=== PATIENT | female | born 1980 | race Caucasian/White ===

== ENCOUNTER 2022-10-24 07:52 | Outpatient (OUT) | payer BC, SELFPAY ==
[2022-10-24 09:13] LABS: Basophils Percent Auto 0.7 % (0.2-2.0); Eosinophils Absolute Auto 0.2 10^3/uL (0.0-0.7); Eosinophils Percent Auto 3.3 % (0.9-7.0); Hematocrit 42.4 % (36.0-48.0); Hemoglobin 14.4 g/dL (12.0-16.0); Immature Granulocytes Abs Auto 0.02 10^3/uL (0.00-0.03); Immature Granulocytes Pct Auto 0.4 % (0.0-0.5); Lymphocytes Absolute Auto 1.7 10^3/uL (1.2-3.8); Lymphocytes Percent Auto 29.3 % (20.5-60.0); Mean Corpuscular Hemoglobin 32.3 pg (26.7-34.0); Mean Corpuscular Volume 95.1 fL (81.0-99.0); Mean Platelet Volume 9.7 fL (9.5-13.5); Monocytes Absolute Auto 0.5 10^3/uL (0.3-0.8); Monocytes Percent Auto 9.1 % (1.7-12.0); Neutrophils Absolute Auto 3.3 10^3/uL (1.4-6.5); Neutrophils Percent Auto 57.2 % (43.0-75.0); Platelet Count 191 10^3/uL (150-450); Red Blood Count 4.46 10^6/uL (4.20-5.40); Red Cell Distribution Width 11.5 % (11.0-15.0); White Blood Count 5.7 10^3/uL (4.0-11.0)
[2022-10-24 09:18] LABS: INR 0.95; Partial Thromboplastin Time 34.1 sec (22.3-36.2); Prothrombin Time 10.1 sec (9.0-11.6)
[2022-10-24 10:14] LABS: BUN Creatinine Ratio 18.6; Calcium 9.2 mg/dL (8.5-10.1); Chloride 104 mmol/L (98-107); Estimated GFR (African America >60 (>=60); Estimated GFR (Non-African Ame >60 (>=60); Glucose 97 mg/dL (74-106); Sodium 139 mmol/L (136-145)
[2022-10-24 10:49] LABS: Alanine Aminotransferase 19 U/L (14-59); Albumin Globulin Ratio 1.1; Albumin Level 3.9 g/dL (3.4-5.0); Alkaline Phosphatase 67 U/L (46-116); Aspartate Amino Transferase 17 U/L (15-37); Bilirubin Direct 0.1 mg/dL (0.0-0.2); Bilirubin Total 0.3 mg/dL (0.2-1.0); Globulin 3.7 g/dL; Total Protein 7.6 g/dL (6.4-8.2)
== END 2022-10-24 07:53 | disposition home or self-care (01) ==
LOC: PST 07:53
PROVIDERS: PCP Family Medicine; Visit Provider Obstetrics & Gynecology
DX: Z01.812 Encounter for preprocedural laboratory examination (principal); N92.0 Excessive and frequent menstruation with regular cycle; R10.2 Pelvic and perineal pain; N94.6 Dysmenorrhea, unspecified
CPT/HCPCS: 36415; 80048; 80076; 85025; 85610; 85730; 86850; 86900; 86901

== ENCOUNTER 2022-11-07 06:34 | Day surgery (SDC) | payer BC, SELFPAY ==
[2022-10-24 08:29] VITALS: BP 140/87; PULSE 88; RESP 16; TEMP 36.5; O2SAT 97; BMI 32.2
[2022-11-07] VITALS (16 sets, daily range): BP systolic 104–143; BP diastolic 63–94; PULSE 69–107; RESP 10–20; TEMP 36.6–36.8; O2SAT 93–98; BMI 32.2
[2022-11-07 06:44] LABS: Basophils Absolute Auto 0.1 10^3/uL (0.0-0.1); Basophils Percent Auto 0.8 % (0.2-2.0); Eosinophils Absolute Auto 0.2 10^3/uL (0.0-0.7); Eosinophils Percent Auto 3.4 % (0.9-7.0); Hematocrit 41.3 % (36.0-48.0); Hemoglobin 14.3 g/dL (12.0-16.0); Immature Granulocytes Abs Auto 0.02 10^3/uL (0.00-0.03); Immature Granulocytes Pct Auto 0.3 % (0.0-0.5); Lymphocytes Absolute Auto 1.9 10^3/uL (1.2-3.8); Lymphocytes Percent Auto 30.2 % (20.5-60.0); Mean Corpuscular HGB Conc 34.6 g/dL (29.9-35.2); Mean Corpuscular Hemoglobin 32.9 pg (26.7-34.0); Mean Corpuscular Volume 94.9 fL (81.0-99.0); Mean Platelet Volume 9.1 fL (9.5-13.5); Monocytes Absolute Auto 0.5 10^3/uL (0.3-0.8); Monocytes Percent Auto 7.5 % (1.7-12.0); Neutrophils Absolute Auto 3.7 10^3/uL (1.4-6.5); Neutrophils Percent Auto 57.8 % (43.0-75.0); Platelet Count 198 10^3/uL (150-450); Red Blood Count 4.35 10^6/uL (4.20-5.40); Red Cell Distribution Width 11.3 % (11.0-15.0); White Blood Count 6.4 10^3/uL (4.0-11.0)
[2022-11-07 07:04] LABS: HCG Quantitative <1 mIU/mL
[2022-11-07] MEDS: LACTATED RINGER'S SOLUTION 1,000 ML 50 ML IV (07:10)
[2022-11-07] MEDS: CEFAZOLIN SODIUM/DEXTROSE,ISO 2 GM/50 ML PIGGYBACK IV ×3 (07:27→21:03)
[2022-11-07] MEDS: LIDOCAINE HCL 1%-EPINEPHRINE 1:100,000 20 ML MDV INJ (08:06)
[2022-11-07] MEDS: 0.9 % SODIUM CHLORIDE 10 ML 30 ML INJ (08:07)
--- NOTE | 2022-11-07 10:11 | P.ON_ITS ---
Brief Operative Note Date of procedure: 11/07/22 Pre-op diagnosis: menorrhagia, pelvic pain dysmenorrhea Post-op diagnosis: same as pre-op Procedure: NAME OF PROCEDURE: ? vNOTES hysterectomy with cystoscopy. PROCEDURE:? Patient was brought back to the operating room where she was given general anesthesia.? She was placed in the dorsolithotomy position, after being prepped and draped in a sterile fashion.? A Marlow catheter was placed.? A weighted speculum was placed posterior in the vagina.? The cervix was grasped anteriorly and posteriorly with two single tooth tenaculums and placed on traction.? A solution of Marcaine, lidocaine and epinephrine and saline was liberally infiltrated into the cervical vaginal junction.? The knife was then used to circumscribe the cervical vaginal junction and the posterior cul-de-sac was sharply entered without difficulty.? A long weighted duck tail speculum was placed and the peritoneum was tacked to the vaginal epithelium.? We then turned our attention to the uterosacral ligaments which were bilaterally cross clamped, transected and suture ligated and then were held with hemostats.? Attention was then turned to the anterior compartment, where the cervical vaginal junction was similarly divided, and the bladder was then sharply and bluntly dissected off the cervix and the lower uterine segment, and the anterior cul-de-sac was sharply entered.? The vaginal epithelium was tacked to the peritoneum.? Lateral attachments of the uterus were secured with Bj clamps and suture ligated.? The retractors were then removed and were placed by the path inner ring an teriorly followed by posteriorly.? Once the ring was seated, the gel cap was placed and the laparoscopic ports were placed through this cap and the gas was allowed to insufflate the pelvis.? A GynLap was placed posteriorly to facilitate mobilization of the bowel, control bleeding.? This was later retrieved.? The LigaSure device was used to secure the lateral attachments of the uterus on the left side, including the cardinal ligaments and the uterine vasculature.? Once the utero-ovarian ligament was reached, we turned our attention to the right side where the LigaSure device was used to fully detach the uterus from the pelvic side wall.? Please note the ligasure was used to perform bilateral salpingectomy, excellent hemostasis was noted. The ureters were seen visually; before, during and after the pedicles were created.? The ureters were bilaterally in normal locations, peristalsing.? Please note that the right and left ovary were already removed and were not visualized.?? Please note that the LigaSure was used on the patient?s left side to fully detach the uterus from the pelvic side wall.? The uterus was removed from the field.? The GynLap was also removed from the field.? The inner ring and gel port caps were removed and the vaginal retractors were replaced.? Lateral figure of eight sutures were placed bilaterally, where bleeding occurred, behind the ring, and no further sutures were needed.? The colpopexy was then carried out, passing a stitch posteriorly to the vaginal wall, capturing the left uterosacral ligament, going across the peritoneum posteriorly to the right and exiting out the vaginal wall posteriorly.? The vaginal cuff was closed in a single running locked stitch using 0 Monocryl, and the uterosacral ligaments were cut.? Once the vaginal cuff was fully closed, the uterosacral colpopexy stitch was then tied down tightly, elevating the vaginal cuff to the uterosacral ligaments in a satisfactory manner.? The Marlow catheter was removed and the patient was awakened and taken to recovery in excellent condition.? Sponge, lap and instruments counts correct x2.? Surgeon: Pete Pinto [facility] Director: Suellen Ugalde Estimated blood loss (mL): 200 Pathology: other (uterus) Condition: stable Disposition: PACU
[2022-11-07] MEDS: HYDROMORPHONE HCL 0.5 MG/0.5 ML SYRINGE IV (10:26)
--- NOTE | 2022-11-07 10:35 | PC.NURSE ---
Peripad changed for small amount bleeding
--- NOTE | 2022-11-07 10:40 | PC.NURSE ---
Turns to left side with pillow to back; medicated as ordered for pain; heat pack to pack; peripad noted to have scant amount bloody drainage
[2022-11-07] MEDS: LACTATED RINGER'S SOLUTION 1,000 ML 125 ML IV ×2 (10:56→18:53)
--- NOTE | 2022-11-07 11:18 | PC.NURSE ---
Medicated with oral pain medications for low back pain; having lower abdominal cramping, but states back discomfort is worse; scant drainage on peripad
[2022-11-07] MEDS: ONDANSETRON PF 4 MG/2 ML VIAL IV (16:25)
[2022-11-07] MEDS: IBUPROFEN 400 MG TABLET 800 MG PO (18:40)
[2022-11-08] MEDS: LACTATED RINGER'S SOLUTION 1,000 ML 125 ML IV (03:24)
[2022-11-08 05:29] VITALS: BP 125/75; PULSE 106; RESP 18; TEMP 36.8; O2SAT 98
[2022-11-08 05:56] LABS: Basophils Percent Auto 0.3 % (0.2-2.0); Eosinophils Absolute Auto 0.1 10^3/uL (0.0-0.7); Eosinophils Percent Auto 0.5 % (0.9-7.0); Hematocrit 35.7 % (36.0-48.0); Hemoglobin 12.2 g/dL (12.0-16.0); Immature Granulocytes Abs Auto 0.03 10^3/uL (0.00-0.03); Immature Granulocytes Pct Auto 0.3 % (0.0-0.5); Lymphocytes Percent Auto 19.5 % (20.5-60.0); Mean Corpuscular HGB Conc 34.2 g/dL (29.9-35.2); Mean Corpuscular Hemoglobin 32.5 pg (26.7-34.0); Mean Corpuscular Volume 95.2 fL (81.0-99.0); Mean Platelet Volume 9.8 fL (9.5-13.5); Monocytes Absolute Auto 0.8 10^3/uL (0.3-0.8); Monocytes Percent Auto 7.7 % (1.7-12.0); Neutrophils Absolute Auto 7.2 10^3/uL (1.4-6.5); Neutrophils Percent Auto 71.7 % (43.0-75.0); Platelet Count 184 10^3/uL (150-450); Red Blood Count 3.75 10^6/uL (4.20-5.40); Red Cell Distribution Width 11.4 % (11.0-15.0)
--- NOTE | 2022-11-08 08:27 | PM.GYNPN2 ---
SALES PRODUCT MANAGER - PN: Subj Post-Op Interval history: doing well, no complaints, denies bm, positive flatus, denies n.v.d.f.c. denies cp sob ct ambulating and tolerating diet well, pain controlled Subjective: patient has no complaints, patient desires discharge, pain is well controlled and patient is tolerating oral intake Exam Constitutional Vital Signs, click to edit/add: Last Vital Signs Temp 98.2 F 11/08/22 05:29 Pulse 106 H 11/08/22 05:29 Resp 18 11/08/22 05:29 BP 125/75 11/08/22 05:29 Pulse Ox 98 11/08/22 05:29 O2 Del Method Room Air 11/08/22 05:29 Documenting provider has reviewed patient's vital signs: yes Common normals: no apparent distress Respiratory Common normals: normal respiratory effort and clear to auscultation bilaterally Cardio Common normals: regular rate and regular rhythm GI Common normals: Normal to inspection, nondistended, normoactive bowel sounds present Extremity Common normals: no clubbing, cyanosis or edema and no calf tenderness Results Labs Labs: Short CBC 11/08/22 Range/Units 04:45 WBC 10.0 (4.0-11.0) 10^3/uL Hgb 12.2 (12.0-16.0) g/dL Hct 35.7 L (36.0-48.0) % Plt Count 184 (150-450) 10^3/uL SALES PRODUCT MANAGER - A/P Assessment and Plan (1) Post-operative state: Plan s/p vnotes-dc home, fu 1wk, rx on chart, precautions given Postoperative Procedures: Procedures Operation Date: 11/07/22 07:30 Actual Procedure Side Surgeon p VNOTES ASSISTED LAPAROSCOPIC HYSTERECTOMY, CYSTOSCOPY Not Applicable Pete Pinto DO Fall Risk Details Chapman fall scale risk level: Moderate Fall Risk Current medications: Current Medications Al Hydroxide/Mg Hydroxide (Magnesium Hydroxide 2,400 Mg/10 Ml Oral.Susp) 2,400 mg PO ONCE SHANIA Docusate Sodium (Docusate Sodium 100 Mg Capsule) 100 mg PO BID PRN PRN Reason: Constipation Lactated Ringer's (Lactated Ringers) 1,000 mls @ 50 mls/hr IV .Q20H SHANIA Last Infusion: 11/08/22 04:24 Dose: Infused Lactated Ringer's (Lactated Ringers) 1,000 mls @ 125 mls/hr IV .Q8H SHANIA Last Admin: 11/08/22 03:24 Dose: 125 mls/hr Ibuprofen (Ibuprofen 400 Mg Tablet) 800 mg PO Q6H PRN PRN Reason: MODERATE PAIN Last Admin: 11/07/22 18:40 Dose: 800 mg Ketorolac Tromethamine (Ketorolac Tromethamine 30 Mg/Ml Vial) 30 mg IVP Q6H PRN PRN Reason: Pain Ondansetron HCl (Ondansetron Pf 4 Mg/2 Ml Vial) 4 mg IV Q6H PRN PRN Reason: Nausea Last Admin: 11/07/22 16:25 Dose: 4 mg Oxycodone/Acetaminophen (Oxycodone Hcl/Acetaminophen 1 Tab Tablet) 1 tab PO Q6H PRN PRN Reason: Pain Oxycodone/Acetaminophen (Oxycodone Hcl/Acetaminophen 1 Tab Tablet) 2 tab PO Q6H PRN PRN Reason: Pain Last Admin: 11/07/22 16:25 Dose: 2 tab Promethazine HCl (Promethazine Hcl 25 Mg/Ml Vial) 12.5 mg IV ONCE PRN PRN Reason: nausea/vomiting Simethicone (Simethicone 80 Mg Tab.Chew) 80 mg PO PCHS PRN PRN Reason: Abdominal Distention Temazepam (Temazepam 15 Mg Capsule) 30 mg PO QHS PRN PRN Reason: Sleep Time Spent With Patient Time: Total time spent is greater than 50% in coordination of care (as documented) at patient's floor/unit and/or counseling patient: Time with patient: less than 15 minutes
[2022-11-08] MEDS: IBUPROFEN 400 MG TABLET 800 MG PO (08:28)
[2022-11-08] MEDS: DOCUSATE SODIUM 100 MG CAPSULE PO (08:29)
[2022-11-08] MEDS: MAGNESIUM HYDROXIDE 2,400 MG/10 ML ORAL.SUSP 2400 MG PO (08:29)
[2022-11-08] MEDS: SIMETHICONE 80 MG TAB.CHEW PO (08:29)
== END 2022-11-08 14:23 | disposition home or self-care (01) ==
LOC: SURGOUT 07:58 → MS 11:19
PROVIDERS: PCP Family Medicine; Visit Provider Obstetrics & Gynecology
PROC: (CPT 58550; principal; 2022-11-07 07:30)
DX: N92.1 Excessive and frequent menstruation with irregular cycle (principal); R10.2 Pelvic and perineal pain; N94.6 Dysmenorrhea, unspecified; N93.8 Other specified abnormal uterine and vaginal bleeding; N80.9 Endometriosis, unspecified
CPT/HCPCS: 58550; 36415; 84702; 85025; 88307; 94667; J1170; J2704

== ENCOUNTER 2023-01-15 08:16 | Outpatient (OUT) | payer BC, SELFPAY ==
--- NOTE | 2023-01-15 08:17 | VEIN_ITS ---
Patient Name: MICHELLE ZEPEDA MR#: [id number] : 1980 Exam Date: 01/15/2023 Ordering Doctor: DR MARY GALLAGHER M.D. RADIOLOGY REPORT PROCEDURE: [facility] FACILITY EST COMPREHENSIVE [facility]IN CENTER - OFFICE VISIT INITIAL COMPARISON: None. PROGRESS NOTES: [age] year old female who presents with a 5+ year history of dilated bulging veins, swelling, leg heaviness, aching. The patient's right leg symptoms are worse than the left. There has been a progression of symptoms over time. This increases with prolonged leg dependency. The patient describes an improvement with rest and elevation. The patient denies any signs and symptoms to suggest arterial ischemia. The patient describes a family history of varicose veins on paternal side. The patient has drinking and smoking history of : Occasional alcohol consumption; remote history of smoking. Patient has a past medical history significant for varicose veins, superficial thrombophlebitis, migraine headaches. The patient denies a history of deep venous thrombus or pulmonary embolus. See separate history and physical for medication list. Prior treatment for varicose with occlusion of the right great saphenous, right small saphenous, and left great saphenous veins.. Current use of compression stockings. After review of nurse notes, history and physical exam I discussed at length the pathophysiology of venous hypertension and possible treatments, therapies and strategies available. We discussed at length the importance of elevating the lower extremities above the level of the heart, increased physical activity and compression stocking use. Ultrasound venous reflux study performed today was discussed at length with the patient. The report demonstrates abnormally dilated and incompetent left small saphenous and anterior accessory saphenous veins as well as bilateral dilated and incompetent branch saphenous varicosities. Again seen is an abnormally dilated and incompetent right calf stoneworker vein.. PHYSICAL EXAM: The right leg demonstrates no significant varicosities, numerous tiny spider veins, no ulceration, mild edema, no skin discoloration. The left leg demonstrates a few varicosities, numerous tiny spider veins, no ulceration, mild edema, no skin discoloration. Both thighs, legs and feet were symmetrically warm to the touch. Good posterior tibial and dorsalis pedis pulses were present bilaterally. VEIN/VC Facility EST Comprehensive IMPRESSION: 1. Bilateral lower extremity venous insufficiency 2. Bilateral lower extremity varicose veins 3. Mild bilateral lower extremity subcutaneous edema 4. No flow significant arterial disease 5. CEAP: C3, EC, AP, GA PLAN: 1. Continued use of compression stockings 2. Elevated legs and increased physical activity symptomatic relief 3. Endovenous laser ablation of the left anterior accessory saphenous vein. 4. Microfoam chemical ablation of bilateral incompetent and dilated branch saphenous varicosities. 5. Bilateral lower extremity sclerotherapy. Nurse notes, history and physical were reviewed and confirmed, see attached forms. The nurse was present throughout the physical exam and consultation Dictated by: Alvin Waterman M.D. on 01/15/2023 at 09:28 Approved by: Alvin Waterman M.D. on 01/15/2023 at 09:36
--- NOTE | 2023-01-15 08:17 | VEIN_ITS ---
Patient Name: MICHELLE ZEPEDA MR#: [id number] : 1980 Exam Date: 01/15/2023 Ordering Doctor: DR MARY GALLAGHER M.D. RADIOLOGY REPORT PROCEDURE: VC EXT VENOUS REFLUX DARELL LMTD COMPARISON: None. INDICATIONS: I83.813 Painful varicose veins of bilat lower extremities TECHNIQUE: Duplex imaging of the lower extremity to assess the deep and superficial venous system for the presence of deep or superficial venous incompetence and to document the location and severity of disease. The study includes evaluation of the great saphenous vein (GSV), anterior accessory saphenous vein (AASV) and small saphenous vein (SSV). Patient scanned in reverse Trendelenburg and standing. FINDINGS: RIGHT LOWER EXTREMITY: Saphenofemoral Junction Reflux: Yes mm sec GSV: Diam (mm) Reflux/ Time (sec) Proximal Thigh N/A Mid Thigh N/A Distal Thigh N/A Prox Calf N/A Mid Calf N/A Saphenopopliteal Junction Reflux: mm SSV: Proximal Calf N/A Mid Calf N/A AASV: Not present Proximal Thigh Mid Thigh Distal Thigh Thrombi: No acute or chronic thrombus visualized Compressibility: Normal Flow: Normal Preforator: Dist/med calf 5.5mm with 0.5s reflux. Tech Note: GSV and SSV were ablated at [facility] in 2018. Patent varicose vein prox/med calf 4.1mm with 2.6s reflux. Patent varicose vein prox/med calf 4.0mm with 1.0s reflux. Patent varicose vein mid/med thigh 4.1mm with 0.8s reflux. LEFT LOWER EXTREMITY: Saphenofemoral Junction Reflux: Yes 8.7 mm 1.0 sec GSV: Diam (mm) Reflux/Time (sec) Proximal Thigh No Mid Thigh N/A Distal Thigh N/A Prox Calf N/A Mid Calf N/A Saphenopopliteal Junction Relux: 5.5 mm Yes 1.4 SSV: Proximal Calf 5.5 Yes 0.5 Mid Calf 4.0 AASV: Proximal Thigh 5.5 Yes 3.4 Mid Thigh 5.6 Yes 0.7 Distal Thigh Thrombi: No acute or chronic thrombus visualized Compressibility: Normal Flow: Normal Manager Department: No perforators visualized Tech Note: Incompetent AASV and SSV. Patent varicose vein prox/med calf 4.6mm with 3.0s reflux. Patent varicose vein mid/med thigh off of AASV 3.8mm with 2.8s reflux. CONCLUSION: 1. Abnormally dilated and incompetent left small saphenous and anterior accessory saphenous veins. 2. Bilateral dilated and incompetent branch saphenous varicosities. 3. Abnormally dilated and incompetent dial marker vein within distal medial right calf. Dictated by: Alvin Waterman M.D. on 01/15/2023 at 09:06 Approved by: Alvin Waterman M.D. on 01/15/2023 at 09:28
== END 2023-01-15 08:17 | disposition home or self-care (01) ==
LOC: VC 08:17
PROVIDERS: PCP Family Medicine; Visit Provider Radiology Diagnostic Radiology
DX: I83.813 Varicose veins of bilateral lower extremities with pain (principal)
CPT/HCPCS: 93970; G0463

== ENCOUNTER 2023-01-29 07:29 | Outpatient (OUT) | payer BC, SELFPAY ==
--- NOTE | 2023-01-29 | VEIN_ITS ---
[address] [address] Patient Name: MICHELLE ZEPEDA MRN: [id number] date: 1980 Sex: F Assigned Patient Location: Current Patient Location: Accession/Order Number: [id number] Exam Date: 01/29/2023 07:45 Report Date: 01/29/2023 08:47 At the request of: MARY GALLAGHER Procedure: VC Endovenous Ablation 1VeinLT EXAMINATION: VC Endovenous Ablation 1VeinLT HISTORY: Pain due to varicose veins of bilateral legs I83.813 The risks and benefits of the procedure had been previously discussed, and were rediscussed at length. Informed written consent was obtained. Avery Abreu RN and Meghan Blanca RDMS, RVT assisted. Time out procedure was performed. The left lower extremity was prepared and draped in the usual sterile fashion to allow knee flexion in the sterile field. Duplex ultrasound probe was draped in a sterile cover, sterile transmission gel was used. Venous mapping was performed with the areas of dilation and large tributaries marked. The total length was 15 cm from the entry upper mid thigh to 3 cm below the Saphenofemoral junction. The diameter of the left anterior accessory saphenous vein ranged from 5.6 mm. A 30 gauge needle and 1% buffered lidocaine was used to anesthetize the entry site. A 4 mm incision was made with a scalpel and the saphenous vein was entered percutaneously under direct ultrasound guidance with a micropuncture set, a single stick was successful in gaining access. A micro-guide wire was inserted and the needle removed. A micro-set including a dilator was inserted over the microwire and the needle and dilator were removed. A guide wire was inserted through the micro-set and guided through the saphenous vein to the saphenofemoral junction. The dilator was removed and an introducer sheath was inserted over the wire until the end of the sheath entered the saphenofemoral junction. The dilator and wire were removed and the 600 micron fiber was introduced and placed and positioned so that it extended beyond the sheath and was 3 cm distal to the saphenofemoral or saphenopopliteal junction. Final position of the fiber was determined by ultrasound guidance and duplex imaging. Tumescent anesthetic was delivered by ultrasound guidance. 150 cc of fluid was delivered along the entire course of the saphenous vein. The solution consisted of 1000 cc of normal saline with 40 mL of 1% lidocaine and 20 mL of sodium bicarbonate. A final positioning check was made. The energy source was turned on by means of the foot pedal and the fiber and sheath were withdrawn. The total number of Joules delivered was 841. The laser was active for 105 seconds under continuous pulse, average laser use of 8 J. Laser start time 8:20 AM, 01/29/2023. Laser stop time 8:22 AM, 01/21/2023. A duplex ultrasound revealed compressibility and flow at the saphenofemoral junction immediately after the procedure. Hemostasis at the access site was achieved. The skin incision of the saphenous vein was closed with a 4 x 4. A compression stocking was applied. Postop instructions were given. A follow up appointment was recommended and scheduled. The patient tolerated the procedure well. Electronically authenticated by: RIGOBERTO HU Date: 01/29/2023 08:47
[2023-01-29] MEDS: LIDOCAINE HCL 1% 100 MG/10 ML MDV INJ (08:04)
[2023-01-29] MEDS: 0.9 % SODIUM CHLORIDE 500 ML, LIDOCAINE HCL 20 ML, SODIUM BICARBONATE 10 MEQ INJ (08:05)
== END 2023-01-29 07:30 | disposition home or self-care (01) ==
LOC: VC 07:29
PROVIDERS: PCP Radiology Diagnostic Radiology; Visit Provider Radiology Diagnostic Radiology
DX: I83.813 Varicose veins of bilateral lower extremities with pain (principal)
CPT/HCPCS: 36478

== ENCOUNTER 2023-01-31 07:28 | Outpatient (OUT) | payer BC, SELFPAY ==
--- NOTE | 2023-01-31 07:31 | VEIN_ITS ---
Patient Name: MICHELLE ZEPEDA MR#: [id number] : 1980 Exam Date: 01/31/2023 Ordering Doctor: DR MARY GALLAGHER M.D. RADIOLOGY REPORT PROCEDURE: [facility] FACILITY EST LMTD VEIN CENTER - OFFICE VISIT FOLLOW UP COMPARISON: None. PROGRESS NOTES: The patient reports improvement in leg symptoms. There has been interval reduction in varicosities. The patient has followed our recommendations to walk 20-30 minutes once or twice per day since the procedure. Physical exam demonstrates decrease in varicosities of the leg. Persistent branch saphenous varicosities are identified along the left leg. Review of the ultrasound performed the same day demonstrates occlusive thrombus extending throughout the treated vein(s), see separate report, consistent with a successful ablation. No thrombus extending into or beyond the saphenofemoral junction. The patient expressed a desire to proceed with treatment of remaining incompetent varicosities. The patient was informed that treatment was a process and would require 2-3 procedures/sessions. VEIN/ Facility EST LMTD IMPRESSION: 1. Successful ablation of the left anterior accessory saphenous vein(s). 2. Persistent dilated branch saphenous veins and lower extremity symptoms. PLAN: Microfoam chemical ablation of incompetent branch saphenous varicosities. Nurse notes, history and physical were reviewed and confirmed, see attached forms. The nurse was present throughout the physical exam and consultation Dictated by: Alvin Waterman M.D. on 01/31/2023 at 08:15 Approved by: Alvin Waterman M.D. on 01/31/2023 at 08:17
--- NOTE | 2023-01-31 07:31 | VEIN_ITS ---
Patient Name: MICHELLE ZEPEDA MR#: [id number] : 1980 Exam Date: 01/31/2023 Ordering Doctor: DR MARY GALLAGHER M.D. RADIOLOGY REPORT PROCEDURE: VC EXT VENOUS LT LIMITED COMPARISON: None. INDICATIONS: Phlebitis of superficial veins of lt lower extremity I80.02 TECHNIQUE: Lower extremity bruner scale and Duplex Doppler evaluation of the deep venous system from the inguinal ligament through the calf veins. FINDINGS: REGION: Left lower extremity. THROMBI: Negative for DVT. Heat induced thrombus visualized 2.5cm from SFJ. The heat induced thrombus extends from groin to mid thigh. COMPRESSIBILITY: Non-compressible segments corresponding to thrombus FLOW: Areas of no flow corresponding to thrombus OTHER: CONCLUSION: 1. Successful post ablation occlusion of left leg anterior accessory saphenous vein. Dictated by: Alvin Waterman M.D. on 01/31/2023 at 08:14 Approved by: Alvin Waterman M.D. on 01/31/2023 at 08:15
--- OUTSIDE RECORDS SUMMARY | 2023-02-20 00:29 | XMS_ITS | CCD ---
Author Name Unknown Address [address] [place] [id number] Organization [facility] Care Team Providers Care English Instructor Name Role Phone REQUEST, DR TEDDY LISTED Primary Care Unavaila ble JARED ., DR ROLON Admitting Unavailable JARED ., DR ROLON Attending Unavailable JARED ., DR ROLON Admitting Unavailable JARED ., DR ROLON Consulting Unavailable JARED ., DR ROLON Attending Unavailable REQUEST, DR ESPINAL LISTED Primary Care Unavaila ble REQUEST, DR ESPINAL LISTED Primary Care Unavaila ble JARED ., DR ROLON Admitting Unavailable JARED ., DR ROLON Consulting Unavailable JARED ., DR ROLON Attending Unavailable LORRI CARRILLO Consulting Unavailable KARLEE, YIN OROZCO Consulting Unava ilable JARED ., DR ROLON Attending Unavailable JARED ., DR ROLON Admitting Unavailable JARED ., DR ROLON Consulting Unavailable Mary Myles Consulting Unavailable JARED ., DR ROLON Admitting Unavailable JARED ., DR ROLON Consulting Unavailable JARED ., DR ROLON Attending Unavailable REQUEST, DR ESPINAL LISTED Primary Care Unavaila ble REQUEST, DR ESPINAL LISTED Attending Unavaila ble RICK QUIROGA Consulting Unavailable REQUEST, DR ESPINAL LISTED Admitting Unavaila ble REQUEST, NONE LISTED Primary Care Unavaila ble REQUEST, DR ESPINAL LISTED Primary Care Unavaila ble JUNAIDRICK MORA Consulting Unavailable JUNAIDRICK MORA Attending Unavailable JUNAIDRICK MORA Admitting Unavailable Problems Active Problems Problem Classification Problem Date Documented Date Episodic/Chronic Menopausal disorders (5 sources) Unspecified menopausal and perimenopausal disorder; Translations: [UNS MENOPAUSAL PERIMENOPAUSAL D/O] Onset: 09-21-2021 Chronic Menstrual disorders (1 source) Excessive and frequent menstruation with regular cycle; Translations: [EXCESS FREQ MENSTRUATION W/REG CYCL] Onset: 09-28-2022 Chronic Other screening for suspected conditions (not mental disorders or infectious disease) (4 sources) Encounter for screening for malignant neoplasm of cervix; Translations: [ENC SCREENING MALIG NEOPLASM CERV] Onset: 05-24-2022 Episodic Unclassified (1 source) PERSONAL HISTORY OF COVID-19; Translations: [PERSONAL HISTORY OF COVID-19] Onset: 11-29-2021 Unclassified (2 sources) CONTACT W/AND (SUSP) EXPOS COVID-19; Translations: [CONTACT W/AND (SUSP) EXPOS COVID-19] Onset: 10-24-2021 Viral infection (1 source) COVID-19; Translations: [COVID-19] Onset: 10-24-2021 Past or Other Problems Problem Classification Problem Date Documented Da te Episodic/Chronic Abdominal pain (5 sources) Pelvic and perineal pain; Translations: [PELVIC AND PERINEAL PAIN] Onset: 11-13-2021 Episodic Other gastrointestinal disorders (1 source) Peritoneal adhesions (postprocedural) (postinfection); Translations: [PERITONEAL ADHES POSTPROC POSTINF] Onset: 11-29-2021 Episodic Screening and history of mental health and substance abuse codes (1 source) Personal history of nicotine dependence; Translations: [PERSONAL HISTORY OF NICOTINE DEPEND] Onset: 11-29-2021 Episodic Unclassified (1 source) CONTACT W/AND (SUSP) EXPOS COVID-19; Translations: [CONTACT W/AND (SUSP) EXPOS COVID-19] Onset: 10-23-2021 Results Test Name Value Interpretation Reference Range Facil ity PAP ACOG PANEL 2: 30 to 65on 05-31-2022 . . Normal [facility] Comment on above: Result Comment: Perf ormed at: WB Performed By: #### [id number] #### [facility] [address] [address] [address] Adria Amor Age Gdln ACOG Testing 30-65 Normal [facility] Comment on above: Performed By: #### [id number] #### [facility] [address] [address] [address] Adria Amor DIAGNOSIS: Comment Normal [facility] Comment on above: Result Comment: NEGA TIVE FOR INTRAEPITHELIAL LESION OR MALIGNANCY. Performed at: WB Performed By: #### [id number] #### [facility] [address] [place] [address] Dr. Adria Amor HPV Aptima Negative Normal Negative [facility] Comment on above: Result Comment: This nucleic acid amplification test detects fourteen high-risk HPV types (16,18,31,33,35,39,45,51,52,56,58,59,66,68) without differentiation. Performed at: =G Performed By: #### [id number] #### [facility] [address] [address] [address] Adria Amor HPV Genotype Reflex Comment Normal [facility] Comment on above: Result Comment: Crit eria not met, HPV Genotype not performed. Performed at: WB Performed By: #### 4 [id number] #### [facility] [address] [place] [address] Dr. Adria Amor Methodology: Comment Normal [facility] Comment on above: Result Comment: This liquid based ThinPrep(R) pap test was screened with the use of an image guided system. Performed at: WB Performed By: #### 4 [id number] #### [facility] [address] [place] [address] Dr. Adria Amor Note: Comment Normal [facility] Comment on above: Result Comment: The Pap smear is a screening test designed to aid in the detection of premalignant and malignant conditions of the uterine cervix. It is not a diagnostic procedure and should not be used as the sole means of detecting cervical cancer. Both false-positive and false-negative reports do occur. . Performed at: WB Performed By: #### [id number] #### [facility] [address] [place] [address] Dr. Adria Amor Performed by: Comment Normal [facility] Comment on above: Result Comment: William Pineda, Shrimp Trawler (ASCP) Performed at: WB Performed By: #### 4 [id number] #### [facility] [address] [place] [address] Dr. Adria Amor Specimen adequacy: Comment Normal [facility] Comment on above: Result Comment: Sati sfactory for evaluation. Endocervical and/or squamous metaplastic cells (endocervical component) are present. Performed at: WB Performed By: #### 4 [id number] #### [facility] [address] [place] [address] Dr. Adria Amor CBC AUTO DIFFon 11-17-2021 BASO # 0.0 103/ul Normal 0.0-0.1 [facility] Comment on above: Performed By: #### 4 [id number] #### [facility] [address] [place] [address] Dr. Adria Amor Basophils/100 WBC (Bld) 0.6 % Normal 0.2-2.0 [facility] Comment on above: Performed By: #### 4 [id number] #### [facility] [address] [place] [address] Dr. Adria Amor EO # 0.3 103/ul Normal 0.0-0.7 [facility] Comment on above: Performed By: #### 4 [id number] #### [facility] [address] [place] [address] Dr. Adria Amor Eosinophils/100 WBC (Bld) 4.0 % Normal 0.9-7.0 [facility] Comment on above: Performed By: #### 4 [id number] #### [facility] [address] [place] [address] Dr. Adria Amor Erythrocyte distribution wid th (RBC) [Ratio] 12.2 % Normal 11.0-15.0 [facility] Comment on above: Performed By: #### 4 [id number] #### [facility] [address] [place] [address] Dr. Adria Amor Hematocrit (Bld) [Volume fraction] 39.3 % Normal 3 6.0-48.0 [facility] Comment on above: Performed By: #### 4 [id number] #### [facility] [address] [place] [address] Dr. Adria Amor Hemoglobin (Bld) [Mass/Vol] 13.7 g/dL Normal 12.0-16. 0 [facility] Comment on above: Performed By: #### 4 [id number] #### [facility] [address] [place] [address] Dr. Adria Amor IG # 0.01 10e3/ul Normal 0.00-0.03 [facility] Comment on above: Performed By: #### 4 [id number] #### [facility] [address] [place] [address] Dr. Adria Amor IG % 0.2 % Normal 0.0-0.5 [facility] Comment on above: Performed By: #### 4 [id number] #### [facility] [address] [place] [address] Dr. Adria Amor LYMPH # 1.9 103/ul Normal 1.2-3.8 [facility] Comment on above: Performed By: #### 4 [id number] #### [facility] [address] [place] [address] Dr. Adria Amor Lymphocytes/100 WBC (Bld) 28.9 % Normal 20.5-60.0 [facility] Comment on above: Performed By: #### 4 [id number] #### [facility] [address] [place] [address] Dr. Adria Amor MANUAL DIFF REQ NO Normal [facility] Comment on above: Performed By: #### 4 [id number] #### [facility] [address] [place] [address] Dr. Adria Amor MCH (RBC) [Entitic mass] 32.4 pg Normal 26.7-34.0 [facility] Comment on above: Performed By: #### 4 [id number] #### [facility] [address] [place] [address] Dr. Adria Amor MCHC (RBC) [Mass/Vol] 34.9 g/dL Normal 29.9-35.2 [facility] Comment on above: Performed By: #### 4 [id number] #### [facility] [address] [place] [address] Dr. Adria Amor MCV (RBC) [Entitic vol] 92.9 fL Normal 81.0-99.0 [facility] Comment on above: Performed By: #### 4 [id number] #### [facility] [address] [place] [address] Dr. Adria Amor MONO # 0.5 103/ul Normal 0.3-0.8 [facility] Comment on above: Performed By: #### 4 [id number] #### [facility] [address] [place] [address] Dr. Adria Amor Monocytes/100 WBC (Bld) 7.4 % Normal 1.7-12.0 [facility] Comment on above: Performed By: #### 4 [id number] #### [facility] [address] [place] [address] Dr. Adria Amor NEUT # 3.8 103/ul Normal 1.4-6.5 [facility] Comment on above: Performed By: #### 4 [id number] #### [facility] [address] [place] [address] Dr. Adria Amor Neutrophils/100 WBC (Bld) 58.9 % Normal 43.0-75.0 [facility] Comment on above: Performed By: #### 4 [id number] #### [facility] [address] [place] [address] Dr. Adria Amor Platelet mean volume (Bld) [Entitic vol] 9.7 fL Normal 9.5-13.5 [facility] Comment on above: Performed By: #### 4 [id number] #### [facility] [address] [place] [address] Dr. Adria Amor PLT 185 103/ul Normal 150-450 [facility]: Performed By: #### 4 [id number] #### [facility] [address] [place] [address] Dr. Adria Amor RBC 4.23 106/ul Normal 4.20-5.40 [facility] Comment on above: Performed By: #### 4 [id number] #### [facility] [address] [place] [address] Dr. Adria Amor WBC 6.5 103/ul Normal 4.0-11.0 [facility] Comment on above: Performed By: #### 4 [id number] #### [facility] [address] [place] [address] Dr. Adria Amor CYTOLOGYon 11-17-2021 SENT TO REF LAB 11/17/2021 Normal [facility] Comment on above: Performed By: #### C YTO #### [facility] [address] [place] [address] Dr. Adria Amor PREG QUANT HCGon 11-17-2021 HCG QUANT 1 mIU/mL Normal [facility] Comment on above: Performed By: #### 4 [id number] #### [facility] [address] [place] [address] Dr. Adria Amor HCG RANGE SEE BELOW Normal [facility] Comment on above: Result Comment: 5-50 0.2-1 WEEK 50-500 1-2 WEEKS 100-5,000 2-3 WEEKS 500-10,000 3-4 WEEKS 1,000-50,000 4-5 WEEKS 10,000-100,000 5-6 WEEKS 15,000-200,000 6-8 WEEKS 10,000- 100,000 2-3 MONTHS Performed By: #### 4 [id number] #### [facility] [address] [place] [address] Dr. Adria Amor CBC AUTO DIFFon 11-08-2021 BASO # 0.1 103/ul Normal 0.0-0.1 [facility] Comment on above: Performed By: #### C BC #### [facility] [address] [place] [address] Dr. Adria Amor Basophils/100 WBC (Bld) 0.7 % Normal 0.2-2.0 [facility] Comment on above: Performed By: #### C BC #### [facility] [address] [place] [address] Dr. Adria Amor EO # 0.3 103/ul Normal 0.0-0.7 [facility] Comment on above: Performed By: #### C BC #### [facility] [address] [place] [address] Dr. Adria Amor Eosinophils/100 WBC (Bld) 3.4 % Normal 0.9-7.0 [facility] Comment on above: Performed By: #### C BC #### [facility] [address] [place] [address] Dr. Adria Amor Erythrocyte distribution wid th (RBC) [Ratio] 11.9 % Normal 11.0-15.0 [facility] Comment on above: Performed By: #### C BC #### [facility] [address] [place] [address] Dr. Adria Amor Hematocrit (Bld) [Volume fraction] 40.2 % Normal 3 6.0-48.0 [facility] Comment on above: Performed By: #### C BC #### [facility] [address] [place] [address] Dr. Adria Amor Hemoglobin (Bld) [Mass/Vol] 13.7 g/dL Normal 12.0-16. 0 [facility] Comment on above: Performed By: #### C BC #### [facility] [address] [place] [address] Dr. Adria Amor IG # 0.02 10e3/ul Normal 0.00-0.03 [facility] Comment on above: Performed By: #### C BC #### [facility] [address] [place] [address] Dr. Adria Amor IG % 0.2 % Normal 0.0-0.5 [facility] Comment on above: Performed By: #### C BC #### [facility] [address] [place] [address] Dr. Adria Amor LYMPH # 2.9 103/ul Normal 1.2-3.8 [facility] Comment on above: Performed By: #### C BC #### [facility] [address] [place] [address] Dr. Adria Amor Lymphocytes/100 WBC (Bld) 35.1 % Normal 20.5-60.0 [facility] Comment on above: Performed By: #### C BC #### [facility] [address] [place] [address] Dr. Adria Amor MANUAL DIFF REQ NO Normal [facility] Comment on above: Performed By: #### C BC #### [facility] [address] [place] [address] Dr. Adria Amor MCH (RBC) [Entitic mass] 31.8 pg Normal 26.7-34.0 [facility] Comment on above: Performed By: #### C BC #### [facility] [address] [place] [address] Dr. Adria Amor MCHC (RBC) [Mass/Vol] 34.1 g/dL Normal 29.9-35.2 [facility] Comment on above: Performed By: #### C BC #### [facility] [address] [place] [address] Dr. Adria Amor MCV (RBC) [Entitic vol] 93.3 fL Normal 81.0-99.0 [facility] Comment on above: Performed By: #### C BC #### [facility] [address] [place] [address] Dr. Adria Amor MONO # 0.7 103/ul Normal 0.3-0.8 [facility] Comment on above: Performed By: #### C BC #### [facility] [address] [place] [address] Dr. Adria Amor Monocytes/100 WBC (Bld) 8.2 % Normal 1.7-12.0 [facility] Comment on above: Performed By: #### C BC #### [facility] [address] [place] [address] Dr. Adria Amor NEUT # 4.3 103/ul Normal 1.4-6.5 [facility] Comment on above: Performed By: #### C BC #### [facility] [address] [place] [address] Dr. Adria Amor Neutrophils/100 WBC (Bld) 52.4 % Normal 43.0-75.0 [facility] Comment on above: Performed By: #### C BC #### [facility] [address] [place] [address] Dr. Adria Amor Platelet mean volume (Bld) [ Entitic vol] 10.3 fL Normal 9.5-13.5 [facility] pital Comment on above: Performed By: #### C BC #### [facility] [address] [place] [address] Dr. Adria Amor PLT 256 103/ul Normal 150-450 [facility] Comment on above: Performed By: #### C BC #### [facility] [address] [place] [address] Dr. Ardia Amor RBC 4.31 106/ul Normal 4.20-5.40 [facility] Comment on above: Performed By: #### C BC #### [facility] [address] [place] [address] Dr. Adria Amor WBC 8.2 103/ul Normal 4.0-11.0 [facility] Comment on above: Performed By: #### C BC #### [facility] [address] [place] [address] Dr. Adria Amor PREG QUANT HCGon 11-08-2021 HCG QUANT <1 Normal [facility] Comment on above: Performed By: #### P REGQNT #### [facility] [address] [place] [address] Dr. Adria Amor HCG RANGE SEE BELOW Normal [facility] Comment on above: Result Comment: 5-50 0.2-1 WEEK 50-500 1-2 WEEKS 100-5,000 2-3 WEEKS 500-10,000 3-4 WEEKS 1,000-50,000 4-5 WEEKS 10,000-100,000 5-6 WEEKS 15,000-200,000 6-8 WEEKS 10,000- 100,000 2-3 MONTHS Performed By: #### P REGQNT #### [facility] [address] [place] [address] Dr. Adria Amor ASYMPTOMATIC COVID-19 ANTIGE Non 10-23-2021 EUA Statement SEE BELOW Normal [facility] Comment on above: Result Comment: This test has not been FDA cleared or approved, but has been authorized by the FDA under an Emergency Use Authorization (EUA) for use by authorized laboratories certified under CLIA that meet the requirements to perform moderate or high complexity testing. This test has been authorized only for the detection of proteins from SARS-CoV-2, not for any other viruses or pathogens. The emergency use of this test is authorized for the duration of the declaration that circumstances exist justifying the authorization of emergency use of in vitro diagnostic tests for detection and/or diagnosis of Covid-19 under section 564(b)(1) of the Act, 21 U.S.C. 360bbb-3(b)(1), unless the declaration is terminated or authorization is revoked sooner. Performed By: #### C VDAGA #### [facility] [address] [place] [address] Dr. Adria Amor SARS-CoV-2 (COVID-19) RNA CHALO+probe Ql (Unsp spec) Positive Critically abnormal NEGATIVE [facility] Comment on above: Result Comment: SARS -CoV-2 antigen present; does not rule out coinfection with other pathogens. Performed By: #### C VDAGA #### [facility] [address] [place] [address] Dr. Adria Amor Covid-19 PCR (CVDTB)on 10-02 SARS-CoV-2 (COVID-19) RNA CHALO+probe Ql (Unsp spec) Detected Critically abnormal NOT DETECTED [facility] Comment on above: Result Comment: This test is not yet approved or cleared by the [place] FDA. When there are no FDA-approved or cleared tests available, and other criteria are met, FDA can make tests available under an emergency access mechanism called an Emergency Use Authorization (EUA). The EUA for this test is supported by the [place] of Health and Human Service's declaration that circumstances exist to justify the emergency use of in vitro diagnostics for the detection and/or diagnosis of the virus that causes COVID-19. This EUA will remain in effect for the duration of the COVID-19 declaration justifying emergency of IVDs, unless it is terminated or revoked by the FDA (after which the test may no longer be used). Performed By: #### C VDTBH #### [facility] [address] [place] [address] Dr. Adria Amor ESTRADIOLon 09-22-2021 Estradiol 66.3 pg/mL Normal [facility] Comment on above: Result Comment: Adul t Female: Follicular phase 12.5 - 166.0 Ovulation phase 85.8 - 498.0 Luteal phase 43.8 - 211.0 Postmenopausal <6.0 - 54.7 1st trimester 215.0 - >4300.0 Aniya ECLIA methodology Performed By: #### E IVIS #### [facility] [address] [place] [address] Dr. Adria Amor FSHon 09-22-2021 FSH 4.0 mIU/mL Normal [facility] Comment on above: Result Comment: Adul t Female: Follicular phase 3.5 - 12.5 Ovulation phase 4.7 - 21.5 Luteal phase 1.7 - 7.7 Postmenopausal 25.8 - 134.8 Performed By: #### 4 [id number] #### [facility] [address] [place] [address] Dr. Adria Amor LUTEINIZING HORMONE (LH)on 0 09-22-2021 LH 14.1 mIU/mL Normal [facility] Comment on above: Result Comment: Adul t Female: Follicular phase 2.4 - 12.6 Ovulation phase 14.0 - 95.6 Luteal phase 1.0 - 11.4 Postmenopausal 7.7 - 58.5 Performed By: #### L BCL #### [facility] [address] [place] [address] Dr. Adria Amor PROGESTERONEon 09-22-2021 Progesterone 5.0 ng/mL Normal [facility] Comment on above: Result Comment: Foll icular phase 0.1 - 0.9 Luteal phase 1.8 - 23.9 Ovulation phase 0.1 - 12.0 First trimester 11.0 - 44.3 Second trimester 25.4 - 83.3 Third trimester 58.7 - 214.0 Postmenopausal 0.0 - 0.1 Performed By: #### P ROGES #### [facility] [address] [place] [address] Dr. Adria Amor TSHon 09-21-2021 TSH 1.400 uIU/mL Normal 0.358-3.740 [facility] Comment on above: Performed By: #### T #### [facility] [address] [address] [address] Adria Amor US PELVIS AND TRANSVAGon US PELVIS AND TRANSVAG EXAM: Pelvic ultr asound. HISTORY: . Pelvic and perineal pain . COMPARISON: None. TECHNIQUE: Transabdominal and transvaginal scanning was performed. FINDINGS: Scanning of the pelvis demonstrates the uterus to measure 10.4 x 6.3 x 4.7 cm. Omental complex measures 13 mm. Right ovary measures 4.7 x 3 x 2.8 cm. Color-flow is noted. Resistive indexes 0.51. Within the right ovary there is a 2.3 x 1.8 cm avascular hypoechoic lesion. Left ovary measures 3.9 x 3 x 3 cm. Color-flow is noted. Resistive indexes 0.4. Within the left ovary there is a 1.9 x 2.7 x 1.7 cm avascular complicated cyst. Impression: 1. Normal-appearing uterus. 2. 2.7 x 1.7 cm complicated cyst within the left ovary. Findings most likely represent hemorrhagic cyst. An inflammatory mass or neoplasm cannot be excluded 3. Within the right ovary there is a 2.3 x 1.8 cm avascular hypoechoic lesion. This could represent hemorrhagic cyst. An inflammatory mass or neoplasm cannot be excluded. Clinical correlation is suggested. 4. You may consider follow-up in 6-8 weeks. If the lesions in the ovaries are hemorrhagic cyst, these should show decrease in size and/or resolution. Electronically authenticated by: MARY MYLES Date: 2021-09-21 08:26 Normal [facility] Encounters Encounter Date Encounter Type Care Provider Facility Start: 05-24-2022 End: 05-24-[address] GONZALES PINTO . Facility:[facility] Start: 11-17-2021 End: 11-17-[address] ESPINAL LISTED REQUEST Facility:[facility] Start: 11-13-2021 Encounter for preprocedural laboratory examination DR GONZALES PINTO . [facility] Start: 11-08-2021 End: 11-09-[address] GONZALES PINTO . Facility:[facility] Start: 11-08-2021 End: 11-09-2021 Encounter for preprocedural laboratory examination DR GONZALES PINTO . Facility:[facility] Start: 11-02-2021 Encounter for other preprocedural examination DR GONZALES PINTO . [facility] Start: 11-01-2021 End: 11-02-2021 ambulatory NONE LISTED REQUEST Facility:[facility] Start: 11-01-2021 End: 11-02-2021 Encounter for other preprocedural examination NONE LISTED REQUEST Facility:[facility] Start: 10-23-2021 End: 10-23-[address] NONE LISTED REQUEST Facility:[facility] Start: 10-17-2021 End: 10-17-[address] NONE LISTED REQUEST Facility:[facility] Start: 09-21-2021 End: 09-22-[address] GONZALES PINTO . Facility: Payers Date Payer Category Payer Unknown [id number] 2019 Unknown [id number] 1982 Unknown [id number] 2.16.84 [id number] 1982 Unknown [id number] 2.16.84 [id number] 1982 Unknown [id number] 2.16.84 [id number] 1982 Unknown [id number] 2.16.84 [id number] 1982 Unknown [id number] 2.16.84 [id number] 1982 Unknown [id number] 2.16.84 [id number] 1982 Unknown [id number] 2.16.84 [id number] 1959 Unknown [id number] Clinical Note 11-17-2021 Note Date & Type Note Facility 11-17-2021 Note OPERATIVE NOTE OPERATION DATE: 11/17/2021 PROCEDURE: Marva endometrial ablation, D AND C hysteroscopy, diagnostic laparoscopy, bilateral salpingectomy, right oophorectomy, fulguration of endometrial implants, lysis of adhesions. PREOPERATIVE DIAGNOSIS: Pelvis pain, menorrhagia. POSTOPERATIVE DIAGNOSIS: Pelvis pain, menorrhagia. ANESTHESIA: General. SURGEON: Gonzales Pinto D.O. COMPENSATION AND BENEFITS MANAGER: ALBERTA Bryan URINE OUTPUT: Yellow and clear. BLOOD LOSS: 10 mL. FINDINGS: Large endometrioma on the patient's right side with significant adhesions to the pelvic sidewall. Normal appearing uterus and tubes. Partially obliterated cul-de-sac. Inside the uterus, both ostia seen. No gross evidence of polyps, fibroids or malignancy. Normal appearing left ovary. SPECIMEN: Right ovary, bilateral tubes and endometrial curettings. PROCEDURE: The patient was taken back to the OR where she was prepped and draped in the normal sterile fashion after being placed in the dorsal lithotomy position, after being placed under general anesthesia without difficulty. A weighted speculum was placed into the vagina. The anterior lip was grasped with a single tooth tenaculum. The patient was then sounded to approximated 8 cm. The patient's cervix was gently dilated using Hegar dilators. The hysteroscope was passed through the cervix into the uterus where both ostia were seen. No gross evidence of polyps, fibroids or malignancy. The cervical length was noted to be 4 cm. The total cavity length is 4 cm. The Marva ablation apparatus was set to approximately 4 cm in length. This was placed through the cervix and into the uterus. After the seal was tested, at that time the total ablation of 120 seconds was performed with the Marva without difficulty. All instruments were removed from the vagina. Excellent hemostasis noted. Sponge and lap count correct times 2. Patient taken to recovery in stable condition. The patient was taken back to the Operating Room where she was given general anesthesia without difficulty. She was then prepped and draped in the normal sterile fashion after being placed in a dorsal lithotomy position. A wet sponge stick was placed into the patient's vagina. Attention was then turned to the patient's abdomen, where a scalpel was used to make a small infraumbilical incision. The S retractors were then used to dissect the underlying layers until the fascia could be seen. The fascia was then grasped with Uriah clamps and tented up. A knife was then used to make a small incision to the fascia. The muscle was identified, at that time two sutures of #0 Vicryl on a GI needle was then used and placed through the fascia. The peritoneum was then identified and entered bluntly. The 10-4 Dutch was then placed into the patient's abdomen. This was confirmed with direct visualization of the bowel, using the laparoscope. The patient's abdomen was then insufflated using approximately 4 liters of CO2 gas. Survey of the patient's abdomen demonstrated ovaries were normal in appearance as well as both tubes and uterus. A second and third rt and lt lateral ports which were 7-8 and 5 mm in size, was then placed after the skin incision was made under direct visualization The patient's tube on the patient's right side was identified and tented up using a grasper, the LigaSure apparatus was then used to come across the mesosalpinx from the fimbriated end to the insertion site at the uterus, the tube was then amputated and removed in its entirety. This was done on the contralateral side. The tubes were the removed from the patient's abdomen. Excellent hemostasis was noted. The lateral ports were then moved under direct visualization with excellent hemostasis. All instruments were removed from the patient's abdomen. The fascia was closed using the #0 Vicryl on GI needle. The skin was closed using 4-0 Vicryl subcuticularly. All instruments were removed from the patient's vagina as well. The patient was taken out of the dorsal lithotomy position and placed in the supine position and taken to recovery in stable condition. Sponge, lap and needle counts were correct x2. [facility] Summary Purpose Family History No Family History Records Found Advance Directives No Advanced Directives Records Found Additional Source Comments INFORMATION SOURCE (unrecogn ized section and content) DATE CREATED AUTHOR 06/09/2022 [facility] FOR RECORDS PERTAINING TO PATIENTS WHO ARE OR HAVE BEEN ENROLLED IN A CHEMICAL DEPENDENCY/SUBSTANCEABUSE PROGRAM, SOME INFORMATION MAY BE OMITTED. This clinical summary was aggregated from multiple sources. Caution should be exercised in using it in the provision of clinical care. This summary normalizes information from multiple sources, and as a consequence, information in this document may materially change the coding, format and clinical context of patient data. In addition, data may be omitted in some cases. CLINICAL DECISIONS SHOULD BE BASED ON THE PRIMARY CLINICAL RECORDS. [employer] [facility]. provides no warranty or guarantee of the accuracy or completeness of information in this document.
== END 2023-01-31 07:29 | disposition home or self-care (01) ==
LOC: VC 07:28
PROVIDERS: PCP Radiology Diagnostic Radiology; Visit Provider Radiology Diagnostic Radiology
DX: I80.02 Phlebitis and thrombophlebitis of superficial vessels of left lower extremity (principal)
CPT/HCPCS: 93971; G0463

== ENCOUNTER 2023-02-01 07:28 | Outpatient (OUT) | payer BC, SELFPAY ==
--- NOTE | 2023-02-01 07:31 | VEIN_ITS ---
[address] [address] Patient Name: MICHELLE ZEPEDA MRN: [id number] date: 1980 Sex: F Assigned Patient Location: Current Patient Location: Accession/Order Number: [id number] Exam Date: 02/01/2023 07:36 Report Date: 02/01/2023 08:29 At the request of: MARY GALLAGHER Procedure: VC INJ Foam Sclerosant WUS PLASTER LATHER PROCEDURE: VC INJ Foam Sclerosant WUS PLASTER LATHER HISTORY: Pain due to varicose veins of bilateral legs I83.813 Pre-operative Diagnosis: CEAP class C3 venous insufficiency with pain, tenderness, edema and incompetent branch saphenous vein(s), chronic venous insufficiency right leg secondary to venous incompetence Post-operative Diagnosis: CEAP class C3 venous insufficiency with pain, tenderness, edema and incompetent branch saphenous vein(s), chronic venous insufficiency right leg secondary to venous incompetence Procedure Performed: 1. Ultrasound-guided microfoam chemical ablation with Varithenaregistered 2. Intraoperative ultrasound guidance Physician: Alvin Waterman M.D. Anesthesia: None Indications for Procedure: 42 year old female. Symptoms including lower extremity swelling, pain, cramping, dilated bulging veins for many years despite conservative medical therapy including medical compression stockings, exercise and analgesics. Prior procedures include [endovenous laser ablation. Multiple incompetent varicosities of the right leg. Duplex scan showed reflux and enlarged diameters up to 5 mm. The patient underwent informed consent including management options where the complications of infection, bleeding, pain, and skin injury were discussed. Particular attention was spent discussing thrombus extension and deep vein thrombosis as well as the possibility of pulmonary embolus and treatment with oral or injectable blood thinners. Procedure: The patient walked to the procedure room. All applicable staff donned appropriate apparel. A procedure timeout was performed to confirm correct patient, correct extremity, correct procedure, and correct room set-up including presence of all applicable supplies, devices, and drugs. A duplex ultrasound, performed by myself confirmed the location and incompetence of branch saphenous varicosities and their course was marked on the skin together with the dilated tributaries. The extent of treatment of the vein and the associated varicosities was determined through ultrasound mapping. The skin was prepped and then punctured with a butterfly needle and advanced under ultrasound guidance. The Varithenaregistered canister was activated and the canister was primed and purged as required in the instructions for use. Varithenaregistered was drawn into a sterile syringe. Varithenaregistered was slowly administered at 0.5-1.0 cc/second with close observation by ultrasound of its course in the vessels. Total volume utilized was: 15 mL (5 mL into a 4 mm varicosity distal medial lower right leg; 5 mL intravenous 5 mm varicosity proximal medial lower leg; 5 mL into a 5 mm varicosity of the mid anterior lower right leg). Following administration of Varithenaregistered the leg was elevated and the patient was asked to repeatedly dorsiflex the ankle to limit flow of Varithenaregistered into perforating veins. Once appropriate spasm had been confirmed in the treated veins, the vascular catheter was removed from the leg and light pressure was applied over the puncture site for hemostasis. The common femoral and deep superficial veins were then evaluated for flow and compressibility prior to dressing placement. The lower extremity was kept elevated at 45 degrees above the horizontal and cording material was applied over the saphenous segments and tributaries to allow for eccentric compression over the target vessels including the targeted saphenous vein(s). A multilayer dressing was applied consisting of foam pads, coban and thigh-high 20-30 mm Hg compression elastic support hose were placed on the patient. The leg was lowered only after compression had been applied and the patient was immediately ambulatory. The patient ambulated 10 minutes under supervision and was without apparent concerns at time of release. Post-care instructions include advising patient to keep post-treatment bandages in place and dry for 48 hours, avoid extended periods of inactivity, avoid heavy exercise for one week, wear compression stockings on the treated leg continuously for two weeks, to walk daily for 10 minutes over the next month. The patient was instructed to take an anti-inflammatory medicine as needed and to follow up for color duplex scan of the Saphenous veins, the treated branch saphenous varicosities, the adjacent deep veins, and additional treatment within 7 days. PERSONNEL: Avery Abreu RN Electronically authenticated by: ALVNI WATERMAN Date: 02/01/2023 08:29
--- OUTSIDE RECORDS SUMMARY | 2023-02-20 01:11 | XMS_ITS | CCD ---
Author Name Unknown Address [address] [place] [id number] Organization [facility] Care Team Providers Care Nature Photographer Name Role Phone REQUEST, DR TEDDY LISTED [...] to 67on 05-31-2022 . . Normal [facility] Comment on above: Result Comment: Perf ormed at: WB Performed By: #### [id number] #### [facility] [address] [address] [address] Adria Amor Age Gdln ACOG Testing 30-65 Normal [facility] Comment on above: Performed By: #### 4 [id number] #### [facility] [address] [address] [address] Adria Amor DIAGNOSIS: Comment Normal [facility] Comment on above: Result Comment: NEGA TIVE FOR INTRAEPITHELIAL LESION OR MALIGNANCY. Performed at: WB Performed By: #### 4 [id number] #### [facility] [address] [place] [address] Dr. Adria Amor HPV Aptima Negative Normal Negative [facility] Comment on above: Result Comment: This nucleic acid amplification test detects fourteen high-risk HPV types (16,18,31,33,35,39,45,51,52,56,58,59,66,68) without differentiation. Performed at: =G Performed By: #### 4 [id number] #### [facility] [address] [address] [address] Adria Amor HPV Genotype Reflex Comment Normal [facility] Comment on above: Result Comment: Crit eria not met, HPV Genotype not performed. Performed at: WB Performed By: #### 4 [id number] #### [facility] [address] [place] [address] Dr. Adria Amor Methodology: Comment Normal [facility] Comment on above: Result Comment: This liquid based ThinPrep(R) pap test was screened with the use of an image guided system. Performed at: WB Performed By: #### [id number] #### [facility] [address] [place] [address] Dr. Adria Amor Note: Comment Normal [facility] Comment on above: Result Comment: The Pap smear is a screening test designed to aid in the detection of premalignant and malignant conditions of the uterine cervix. It is not a diagnostic procedure and should not be used as the sole means of detecting cervical cancer. Both false-positive and false-negative reports do occur. . Performed at: WB Performed By: #### [id number] #### [facility] [address] [place] [address] Dr. Adria Amor Performed by: Comment Normal [facility] Comment on above: Result Comment: William Pineda, Biomedical Scientist (ASCP) Performed at: WB Performed By: #### 4 [id number] #### [facility] [address] [place] [address] Dr. Adria Amor Specimen adequacy: Comment Normal [facility] Comment on above: Result Comment: Sati sfactory for evaluation. Endocervical and/or squamous metaplastic cells (endocervical component) are present. Performed at: WB Performed By: #### 4 [id number] #### [facility] [address] [place] [address] Dr. Adria Amor CBC AUTO DIFFon 11-17-2021 BASO # 0.0 103/ul Normal 0.0-0.1 [facility] Comment on above: Performed By: #### 4 [id number] #### [facility] [address] [place] [address] Dr. Adria Amor Basophils/100 WBC (Bld) 0.6 % Normal 0.2-2.0 [facility] Comment on above: Performed By: #### 4 [id number] #### [facility] [address] [place] [address] Dr. Adria Amor EO # 0.3 103/ul Normal 0.0-0.7 [facility] Comment on above: Performed By: #### 4 [id number] #### [facility] [address] [place] [address] Dr. Adria Amor Eosinophils/100 WBC (Bld) 4.0 % Normal 0.9-7.0 [facility] Comment on above: Performed By: #### 4 [id number] #### [facility] [address] [place] [address] Dr. Adria Amor Erythrocyte distribution wid th (RBC) [Ratio] 12.2 % Normal 11.0-15.0 [facility] Comment on above: Performed By: #### 4 [id number] #### [facility] [address] [place] [address] Dr. Adria Amor Hematocrit (Bld) [Volume fraction] 39.3 % Normal 3 6.0-48.0 [facility] Comment on above: Performed By: #### 4 [id number] #### [facility] [address] [place] [address] Dr. Adria Amor Hemoglobin (Bld) [Mass/Vol] 13.7 g/dL Normal 12.0-16. 0 [facility] Comment on above: Performed By: #### 4 [id number] #### [facility] [address] [place] [address] Dr. Adria Amor IG # 0.01 10e3/ul Normal 0.00-0.03 [facility] Comment on above: Performed By: #### 4 [id number] #### [facility] [address] [place] [address] Dr. Adria Amor IG % 0.2 % Normal 0.0-0.5 [facility] Comment on above: Performed By: #### 4 [id number] #### [facility] [address] [place] [address] Dr. Adria Amor LYMPH # 1.9 103/ul Normal 1.2-3.8 [facility] Comment on above: Performed By: #### 4 [id number] #### [facility] [address] [place] [address] Dr. Adria Amor Lymphocytes/100 WBC (Bld) 28.9 % Normal 20.5-60.0 [facility] Comment on above: Performed By: #### 4 [id number] #### [facility] [address] [place] [address] Dr. Adria Amor MANUAL DIFF REQ NO Normal [facility] Comment on above: Performed By: #### 4 [id number] #### [facility] [address] [place] [address] Dr. Adria Amor MCH (RBC) [Entitic mass] 32.4 pg Normal 26.7-34.0 [facility] Comment on above: Performed By: #### 4 [id number] #### [facility] [address] [place] [address] Dr. Adria Amor MCHC (RBC) [Mass/Vol] 34.9 g/dL Normal 29.9-35.2 [facility] Comment on above: Performed By: #### 4 [id number] #### [facility] [address] [place] [address] Dr. Adria Amor MCV (RBC) [Entitic vol] 92.9 fL Normal 81.0-99.0 [facility] Comment on above: Performed By: #### 4 [id number] #### [facility] [address] [place] [address] Dr. Adria Amor MONO # 0.5 103/ul Normal 0.3-0.8 [facility] Comment on above: Performed By: #### 4 [id number] #### [facility] [address] [place] [address] Dr. Adria Amor Monocytes/100 WBC (Bld) 7.4 % Normal 1.7-12.0 [facility] Comment on above: Performed By: #### 4 [id number] #### [facility] [address] [place] [address] Dr. Adria Amor NEUT # 3.8 103/ul Normal 1.4-6.5 [facility] Comment on above: Performed By: #### 4 [id number] #### [facility] [address] [place] [address] Dr. Adria Amor Neutrophils/100 WBC (Bld) 58.9 % Normal 43.0-75.0 [facility] Comment on above: Performed By: #### 4 [id number] #### [facility] [address] [place] [address] Dr. Adria Amor Platelet mean volume (Bld) [Entitic vol] 9.7 fL Normal 9.5-13.5 [facility] Comment on above: Performed By: #### 4 [id number] #### [facility] [address] [place] [address] Dr. Adria Amor PLT 185 103/ul Normal 150-450 [facility] Comment on above: Performed By: #### 4 [id number] #### [facility] [address] [place] [address] Dr. Adria Amor RBC 4.23 106/ul Normal 4.20-5.40 [facility] Comment on above: Performed By: #### 4 [id number] #### [facility] [address] [place] [address] Dr. Adria Amor WBC 6.5 103/ul Normal 4.0-11.0 [facility] Comment on above: Performed By: #### 4 [id number] #### [facility] [address] [place] [address] Dr. Adria Amor CYTOLOGYon 11-17-2021 SENT TO REF LAB 11/17/2021 Normal [facility] Comment on above: Performed By: #### C YTO #### [facility] [address] [place] [address] Dr. Adria Amor PREG QUANT HCGon 11-17-2021 HCG QUANT 1 mIU/mL Normal [facility] Comment on above: Performed By: #### 4 [id number] #### [facility] [address] [place] [address] Dr. Adria Amor HCG RANGE SEE BELOW Normal [facility] Comment on above: Result Comment: 5-50 0.2-1 WEEK 50-500 1-2 WEEKS 100-5,000 2-3 WEEKS 500-10,000 3-4 WEEKS 1,000-50,000 4-5 WEEKS 10,000-100,000 5-6 WEEKS 15,000-200,000 6-8 WEEKS 10,000- 100,000 2-3 MONTHS Performed By: #### 4 [id number] #### [facility] [address] [place] [address] Dr. Adria Amor CBC AUTO DIFFon 11-08-2021 BASO # 0.1 103/ul Normal 0.0-0.1 [facility] Comment on above: Performed By: #### C BC #### [facility] [address] [place] [address] Dr. Adria Amor Basophils/100 WBC (Bld) 0.7 % Normal 0.2-2.0 [facility] Comment on above: Performed By: #### C BC #### [facility] [address] [place] [address] Dr. Adria Amor EO # 0.3 103/ul Normal 0.0-0.7 [facility] Comment on above: Performed By: #### C BC #### [facility] [address] [place] [address] Dr. Adria Amor Eosinophils/100 WBC (Bld) 3.4 % Normal 0.9-7.0 [facility] Comment on above: Performed By: #### C BC #### [facility] [address] [place] [address] Dr. Adria Amor Erythrocyte distribution wid th (RBC) [Ratio] 11.9 % Normal 11.0-15.0 [facility] Comment on above: Performed By: #### C BC #### [facility] [address] [place] [address] Dr. Adria Amor Hematocrit (Bld) [Volume fraction] 40.2 % Normal 3 6.0-48.0 [facility] Comment on above: Performed By: #### C BC #### [facility] [address] [place] [address] Dr. Adria Amor Hemoglobin (Bld) [Mass/Vol] 13.7 g/dL Normal 12.0-16. 0 [facility] Comment on above: Performed By: #### C BC #### [facility] [address] [place] [address] Dr. Adria Amor IG # 0.02 10e3/ul Normal 0.00-0.03 [facility] Comment on above: Performed By: #### C BC #### [facility] [address] [place] [address] Dr. Adria Amor IG % 0.2 % Normal 0.0-0.5 [facility] Comment on above: Performed By: #### C BC #### [facility] [address] [place] [address] Dr. Adria Amor LYMPH # 2.9 103/ul Normal 1.2-3.8 [facility] Comment on above: Performed By: #### C BC #### [facility] [address] [place] [address] Dr. Adria Amor Lymphocytes/100 WBC (Bld) 35.1 % Normal 20.5-60.0 [facility] Comment on above: Performed By: #### C BC #### [facility] [address] [place] [address] Dr. Adria Amor MANUAL DIFF REQ NO Normal [facility] Comment on above: Performed By: #### C BC #### [facility] [address] [place] [address] Dr. Adria Amor MCH (RBC) [Entitic mass] 31.8 pg Normal 26.7-34.0 [facility] Comment on above: Performed By: #### C BC #### [facility] [address] [place] [address] Dr. Adria Amor MCHC (RBC) [Mass/Vol] 34.1 g/dL Normal 29.9-35.2 [facility] Comment on above: Performed By: #### C BC #### [facility] [address] [place] [address] Dr. Adria Amor MCV (RBC) [Entitic vol] 93.3 fL Normal 81.0-99.0 [facility] Comment on above: Performed By: #### C BC #### [facility] [address] [place] [address] Dr. Adria Amor MONO # 0.7 103/ul Normal 0.3-0.8 [facility] Comment on above: Performed By: #### C BC #### [facility] [address] [place] [address] Dr. Adria Amor Monocytes/100 WBC (Bld) 8.2 % Normal 1.7-12.0 [facility] Comment on above: Performed By: #### C BC #### [facility] [address] [place] [address] Dr. Adria Amor NEUT # 4.3 103/ul Normal 1.4-6.5 [facility] Comment on above: Performed By: #### C BC #### [facility] [address] [place] [address] Dr. Adria Amor Neutrophils/100 WBC (Bld) 52.4 % Normal 43.0-75.0 [facility] Comment on above: Performed By: #### C BC #### [facility] [address] [place] [address] Dr. Adria Amor Platelet mean volume (Bld) [ Entitic vol] 10.3 fL Normal 9.5-13.5 [facility] Comment on above: Performed By: #### C BC #### [facility] [address] [place] [address] Dr. Adria Amor PLT 256 103/ul Normal 150-450 [facility] Comment on above: Performed By: #### C BC #### [facility] [address] [place] [address] Dr. Adria Amor RBC 4.31 106/ul Normal 4.20-5.40 [facility] Comment on above: Performed By: #### C BC #### [facility] [address] [place] [address] Dr. Adria Amor WBC 8.2 103/ul Normal 4.0-11.0 [facility] Comment on above: Performed By: #### C BC #### [facility] [address] [place] [address] Dr. Adria Amor PREG QUANT HCGon 11-08-2021 HCG QUANT <1 Normal [facility] Comment on above: Performed By: #### P REGQNT #### [facility] [address] [place] [address] Dr. Adria Amor HCG RANGE SEE BELOW Normal [facility] Comment on above: Result Comment: 5-50 0.2-1 WEEK 50-500 1-2 WEEKS 100-5,000 2-3 WEEKS 500-10,000 3-4 WEEKS 1,000-50,000 4-5 WEEKS 10,000-100,000 5-6 WEEKS 15,000-200,000 6-8 WEEKS 10,000- 100,000 2-3 MONTHS Performed By: #### P REGQNT #### [facility] [address] [place] [address] Dr. Adria Amor ASYMPTOMATIC COVID-19 ANTIGE Non 10-23-2021 EUA Statement SEE BELOW Normal [facility] Comment on above: Result Comment: This test [...] sooner. Performed By: #### C VDAGA #### [facility] [address] [place] [address] Dr. Adria Amor SARS-CoV-2 (COVID-19) RNA CHALO+probe Ql (Unsp spec) Positive Critically abnormal NEGATIVE [facility] Comment on above: Result Comment: SARS -CoV-2 antigen present; does not rule out coinfection with other pathogens. Performed By: #### C VDAGA #### [facility] [address] [place] [address] Dr. Adria Amor Covid-19 PCR (CVDTB)on 10-02 SARS-CoV-2 (COVID-19) RNA CHALO+probe Ql (Unsp spec) Detected Critically abnormal NOT DETECTED [facility] Comment on above: Result Comment: This test is not yet approved or cleared by the [place] FDA. When there are no FDA-approved or cleared tests available, and other criteria are met, FDA can make tests available under an emergency access mechanism called an Emergency Use Authorization (EUA). The EUA for this test is supported by the [place] of Health and Human Service's declaration that [...] used). Performed By: #### C VDTBH #### [facility] [address] [place] [address] Dr. Adria Amor ESTRADIOLon 09-22-2021 Estradiol 66.3 pg/mL Normal [facility] Comment on above: Result Comment: Adul t Female: Follicular phase 12.5 - 166.0 Ovulation phase 85.8 - 498.0 Luteal phase 43.8 - 211.0 Postmenopausal <6.0 - 54.7 1st trimester 215.0 - >4300.0 Aniya ECLIA methodology Performed By: #### E IVIS #### [facility] [address] [place] [address] Dr. Adria Amor FSHon 09-22-2021 FSH 4.0 mIU/mL Normal [facility] Comment on above: Result Comment: Adul t Female: Follicular phase 3.5 - 12.5 Ovulation phase 4.7 - 21.5 Luteal phase 1.7 - 7.7 Postmenopausal 25.8 - 134.8 Performed By: #### 4 [id number] #### [facility] [address] [place] [address] Dr. Adria Amor LUTEINIZING HORMONE (LH)on 0 09-22-2021 LH 14.1 mIU/mL Normal [facility] Comment on above: Result Comment: Adul t Female: Follicular phase 2.4 - 12.6 Ovulation phase 14.0 - 95.6 Luteal phase 1.0 - 11.4 Postmenopausal 7.7 - 58.5 Performed By: #### L BCL #### [facility] [address] [place] [address] Dr. Adria Amor PROGESTERONEon 09-22-2021 Progesterone 5.0 ng/mL Normal [facility] Comment on above: Result Comment: Foll icular phase 0.1 - 0.9 Luteal phase 1.8 - 23.9 Ovulation phase 0.1 - 12.0 First trimester 11.0 - 44.3 Second trimester 25.4 - 83.3 Third trimester 58.7 - 214.0 Postmenopausal 0.0 - 0.1 Performed By: #### P ROGES #### [facility] [address] [place] [address] Dr. Adria Amor TSHon 09-21-2021 TSH 1.400 uIU/mL Normal 0.358-3.740 [facility] Comment on above: Performed By: #### T #### [facility] [address] [address] [address] Adria Amor US PELVIS AND TRANSVAGon [...] by: MARY MYLES Date: 2021-09-21 08:26 Normal [facility] Encounters Encounter Date Encounter Type Care Provider Facility Start: 05-24-2022 End: 05-24-[address] GONZALES PINTO . Facility:[facility] Start: 11-17-2021 End: 11-17-[address] ESPINAL LISTED REQUEST Facility:[facility] Start: 11-13-2021 Encounter for preprocedural laboratory examination DR GONZALES PINTO . [facility] Start: 11-08-2021 End: 11-09-[address] GONZALES PINTO . Facility:[facility] Start: 11-08-2021 End: 11-09-2021 Encounter for preprocedural laboratory examination DR GONZALES PINTO . Facility:[facility] Start: 11-02-2021 Encounter for other preprocedural examination DR GONZALES PINTO . [facility] Start: 11-01-2021 End: 11-02-2021 ambulatory NONE LISTED REQUEST Facility:[facility] Start: 11-01-2021 End: 11-02-2021 Encounter for other preprocedural examination NONE LISTED REQUEST Facility:[facility] Start: 10-23-2021 End: 10-23-[address] NONE LISTED REQUEST Facility:[facility] Start: 10-17-2021 End: 10-17-[address] NONE LISTED REQUEST Facility:[facility] Start: 09-21-2021 End: 09-22-[address] GONZALES PINTO . Facility: Payers Date Payer Category Payer Unknown [id number] 2019 Unknown [id number] 1980 Unknown [id number] 2.16.84 [id number] 1982 Unknown [id number] 2.16.84 [id number] 1982 Unknown [id number] 2.16.84 [id number] 1982 Unknown [id number] 2.16.84 [id number] 1982 Unknown [id number] 2.16.84 [id number] 1982 Unknown [id number] 2.16.84 [id number] 1982 Unknown [id number] 2.16.84 [id number] 1959 Unknown [id number] Clinical Note 11-17-2021 Note Date & Type Note Facility 11-17-2021 Note OPERATIVE NOTE OPERATION DATE: 11/17/2021 PROCEDURE: Marva endometrial ablation, D AND C hysteroscopy, diagnostic laparoscopy, bilateral salpingectomy, right oophorectomy, fulguration of endometrial implants, lysis of adhesions. PREOPERATIVE DIAGNOSIS: Pelvis pain, menorrhagia. POSTOPERATIVE DIAGNOSIS: Pelvis pain, menorrhagia. ANESTHESIA: General. SURGEON: Gonzales Pinto D.O. DISPATCHER SHIP PILOT: ALBERTA Byran URINE OUTPUT: Yellow and clear. BLOOD LOSS: [...] and needle counts were correct x2. [facility] Summary Purpose Family History No Family History Records Found Advance Directives No Advanced Directives Records Found Additional Source Comments INFORMATION SOURCE (unrecogn ized section and content) DATE CREATED AUTHOR 06/09/2022 [facility] FOR RECORDS PERTAINING TO PATIENTS WHO ARE [...] BE BASED ON THE PRIMARY CLINICAL RECORDS. [employer] [facility]. provides no warranty or guarantee of the accuracy or completeness of information in this document.
== END 2023-02-01 07:29 | disposition home or self-care (01) ==
LOC: VC 07:28
PROVIDERS: PCP Radiology Diagnostic Radiology; Visit Provider Radiology Diagnostic Radiology
DX: I83.813 Varicose veins of bilateral lower extremities with pain (principal)
CPT/HCPCS: 36466

== ENCOUNTER 2023-02-04 07:33 | Outpatient (OUT) | payer BC, SELFPAY ==
--- NOTE | 2023-02-04 07:36 | VEIN_ITS ---
Patient Name: MICHELLE ZEPEDA MR#: [id number] : 1980 Exam Date: 02/04/2023 Ordering Doctor: DR MARY GALLAGHER M.D. RADIOLOGY REPORT PROCEDURE: [facility] C[facility] - OFFICE VISIT FOLLOW UP COMPARISON: [facility] EXT VENOUS RT LMTD, 02/04/2023. [facility] EST LMTD, 01/31/2023. PROGRESS NOTES: The patient reports improvement in leg symptoms. There has been interval reduction in varicosities. The patient has followed our recommendations to walk 20-30 minutes once or twice per day since the procedure. Physical exam demonstrates decrease in varicosities of the leg. Mild bruising. Review of the ultrasound performed the same day demonstrates occlusive thrombus extending throughout the treated vein(s), see separate report, consistent with a successful ablation. No thrombus extending into or beyond the saphenofemoral junction. Persistent dilated varicose vein within the right thigh. The patient expressed a desire to proceed with treatment of remaining incompetent varicosities. The patient was informed that treatment was a process and would require approximately 2 procedures/sessions. VEIN/ Facility EST LMTD IMPRESSION: 1. Successful ablation of the right leg treated branch saphenous vein(s). 2. Persistent superficial varicose veins and lower extremity symptoms. PLAN: Microfoam chemical ablation of left leg abnormal branch saphenous varicosities. Nurse notes, history and physical were reviewed and confirmed, see attached forms. The nurse was present throughout the physical exam and consultation Dictated by: Alvin Waterman M.D. on 02/04/2023 at 08:25 Approved by: Alvin Waterman M.D. on 02/04/2023 at 08:28
--- NOTE | 2023-02-04 07:36 | VEIN_ITS ---
Patient Name: MICHELLE ZEPEDA MR#: [id number] : 1980 Exam Date: 02/04/2023 Ordering Doctor: DR MARY GALLAGHER M.D. RADIOLOGY REPORT PROCEDURE: VC EXT VENOUS RT LMTD COMPARISON: None. INDICATIONS: I80.01 Phlebitis of superficial veins of rt lower extremity TECHNIQUE: Lower extremity bruner scale and Duplex Doppler evaluation of the deep venous system from the inguinal ligament through the calf veins. FINDINGS: REGION: Right lower extremity. THROMBI: Negative for DVT. Varithena induced thrombus visualized at prox/med calf, dist/med calf, and dist/med ham doctor. COMPRESSIBILITY: Non-compressible segments corresponding to thrombus FLOW: Areas of no flow corresponding to thrombus OTHER: Patent varicose vein dist/med thigh 4.8mm with 0.9s reflux. CONCLUSION: 1. Successful post ablation occlusion of right leg treated branch saphenous varicosities. Dictated by: Alvin Waterman M.D. on 02/04/2023 at 08:21 Approved by: Alvin Waterman M.D. on 02/04/2023 at 08:25
== END 2023-02-04 07:34 | disposition home or self-care (01) ==
LOC: VC 07:33
PROVIDERS: PCP Radiology Diagnostic Radiology; Visit Provider Radiology Diagnostic Radiology
DX: I80.01 Phlebitis and thrombophlebitis of superficial vessels of right lower extremity (principal)
CPT/HCPCS: 93971; G0463

== ENCOUNTER 2023-02-05 09:16 | Outpatient (OUT) | payer BC, SELFPAY ==
--- NOTE | 2023-02-05 09:18 | VEIN_ITS ---
[address] [address] Patient Name: MICHELLE ZEPEDA MRN: [id number] date: 1980 Sex: F Assigned Patient Location: Current Patient Location: Accession/Order Number: [id number] Exam Date: 02/05/2023 09:20 Report Date: 02/05/2023 10:56 At the request of: MARY GALLAGHER Procedure: VC INJ Foam Sclerosant WUS ENVIRONMENTAL PROTECTION ECONOMIST PROCEDURE: VC INJ Foam Sclerosant WUS ENVIRONMENTAL PROTECTION ECONOMIST HISTORY: Pain due to varicose veins of bilateral legs I83.813 Pre-operative Diagnosis: CEAP class C3 venous insufficiency with pain, tenderness, edema and incompetent branch saphenous vein(s), chronic venous insufficiency left leg secondary to venous incompetence Post-operative Diagnosis: CEAP class C3 venous insufficiency with pain, tenderness, edema and incompetent branch saphenous vein(s), chronic venous insufficiency left leg secondary to venous incompetence Procedure Performed: 1. Ultrasound-guided microfoam chemical ablation with Varithenaregistered 2. Intraoperative ultrasound guidance Physician: Alvin Waterman M.D. Anesthesia: None Indications for Procedure: 42 year old female. Symptoms including lower extremity pain, swelling, dilated bulging veins for many years despite conservative medical therapy including medical compression stockings, exercise and analgesics. Prior procedures include [endovenous laser ablation and microfoam chemical ablation. Multiple incompetent varicosities of the left leg. Duplex scan showed reflux and enlarged diameters up to 4 mm. The patient underwent informed consent including management options where the complications of infection, bleeding, pain, and skin injury were discussed. Particular attention was spent discussing thrombus extension and deep vein thrombosis as well as the possibility of pulmonary embolus and treatment with oral or injectable blood thinners. Procedure: The patient walked to the procedure room. All applicable staff donned appropriate apparel. A procedure timeout was performed to confirm correct patient, correct extremity, correct procedure, and correct room set-up including presence of all applicable supplies, devices, and drugs. A duplex ultrasound, performed by myself confirmed the location and incompetence of branch saphenous varicosities and their course was marked on the skin together with the dilated tributaries. The extent of treatment of the vein and the associated varicosities was determined through ultrasound mapping. The skin was prepped and then punctured with a butterfly needle and advanced under ultrasound guidance. The Varithenaregistered canister was activated and the canister was primed and purged as required in the instructions for use. Varithenaregistered was drawn into a sterile syringe. Varithenaregistered was slowly administered at 0.5-1.0 cc/second with close observation by ultrasound of its course in the vessels. Total volume utilized was: 10 mL (5 mL into a 4 mm varicosity of the mid medial lower leg; 3 mL into a 4 mm varicosity distal anterior thigh; 2 mL into a 4 mm varicosity medial anterior thigh). Following administration of Varithenaregistered the leg was elevated and the patient was asked to repeatedly dorsiflex the ankle to limit flow of Varithenaregistered into perforating veins. Once appropriate spasm had been confirmed in the treated veins, the vascular catheter was removed from the leg and light pressure was applied over the puncture site for hemostasis. The common femoral and deep superficial veins were then evaluated for flow and compressibility prior to dressing placement. The lower extremity was kept elevated at 45 degrees above the horizontal and cording material was applied over the saphenous segments and tributaries to allow for eccentric compression over the target vessels including the targeted saphenous vein(s). A multilayer dressing was applied consisting of foam pads, coban and thigh-high 20-30 mm Hg compression elastic support hose were placed on the patient. The leg was lowered only after compression had been applied and the patient was immediately ambulatory. The patient ambulated 10 minutes under supervision and was without apparent concerns at time of release. Post-care instructions include advising patient to keep post-treatment bandages in place and dry for 48 hours, avoid extended periods of inactivity, avoid heavy exercise for one week, wear compression stockings on the treated leg continuously for two weeks, to walk daily for 10 minutes over the next month. The patient was instructed to take an anti-inflammatory medicine as needed and to follow up for color duplex scan of the Saphenous veins, the treated branch saphenous varicosities, the adjacent deep veins, and additional treatment within 7 days. PERSONNEL: Avery Abreu RN Electronically authenticated by: ALVIN WATERMAN Date: 02/05/2023 10:56
== END 2023-02-05 09:17 | disposition home or self-care (01) ==
LOC: VC 09:16
PROVIDERS: PCP Radiology Diagnostic Radiology; Visit Provider Radiology Diagnostic Radiology
DX: I83.813 Varicose veins of bilateral lower extremities with pain (principal)
CPT/HCPCS: 36466

== ENCOUNTER 2023-02-08 07:36 | Outpatient (OUT) | payer BC, SELFPAY ==
--- NOTE | 2023-02-08 07:37 | VEIN_ITS ---
Patient Name: MICHELLE ZEPEDA MR#: [id number] : 1980 Exam Date: 02/08/2023 Ordering Doctor: DR DOUG MERCHANT M.D. RADIOLOGY REPORT PROCEDURE: [facility] EST LMTD VEIN CENTER - OFFICE VISIT FOLLOW UP COMPARISON: [facility] EST LMTD, 02/04/2023. [facility] EST LMTD, 01/31/2023. PROGRESS NOTES: The patient reports no significant problems following micro foam chemical ablation of the left leg. The patient did not require oral analgesics. The patient has worn compression stockings. The patient has followed our recommendations to walk 20-30 minutes once or twice per day since the procedure. Physical exam demonstrates several areas of bruising primarily related to interval placement left anterior accessory saphenous vein. No erythema or warmth to suggest cellulitis or thrombophlebitis. No active ulceration Review of the ultrasound performed the same day demonstrates occlusive thrombus extending throughout the treated left leg varicose veins. The patient expressed a desire to proceed with treatment of incompetent right leg varicose veins. VEIN/[facility] EST LMTD IMPRESSION: 1. Successful ablation of treated incompetent left leg varicose veins 2. Persistent patent incompetent right leg varicose veins. PLAN: Micro foam chemical ablation right leg incompetent varicose veins Nurse notes, history and physical were reviewed and confirmed, see attached forms. The nurse was present throughout the physical exam and consultation Dictated by: Doug Merchant MD on 02/08/2023 at 08:42 Approved by: Doug Merchant MD on 02/08/2023 at 08:43
--- NOTE | 2023-02-08 07:37 | VEIN_ITS ---
Patient Name: MICHELLE ZEPEDA MR#: [id number] : 1980 Exam Date: 02/08/2023 Ordering Doctor: DR DOUG MERCHANT M.D. RADIOLOGY REPORT PROCEDURE: VC EXT VENOUS LT LIMITED COMPARISON: VC EXT VENOUS LT LIMITED, 01/31/2023. INDICATIONS: I80.02 Phlebitis of superficial veins of lt lower extremity TECHNIQUE: Lower extremity bruner scale and Duplex Doppler evaluation of the deep venous system from the inguinal ligament through the calf veins. FINDINGS: REGION: Left lower extremity. THROMBI: Negative for DVT. Varithena induced thrombus visualized at mid/med calf and mid/ant thigh. COMPRESSIBILITY: Non-compressible segments corresponding to thrombus FLOW: Areas of absent flow corresponding to thrombus OTHER: Multiple varicose veins remain. The largest is at distal/med thigh 2.5mm with 1.0s reflux. CONCLUSION: Post ablation occlusion of treated left leg varicose veins Dictated by: Doug Merchant MD on 02/08/2023 at 08:33 Approved by: Doug Merchant MD on 02/08/2023 at 08:39
--- OUTSIDE RECORDS SUMMARY | 2023-02-20 03:40 | XMS_ITS | CCD ---
Author Name Unknown Address [address] [place] [id number] Organization [facility] Care Team Providers Care Territory Manager General Sales Name Role Phone REQUEST, DR TEDDY LISTED Primary Care Unavaila ble JARED ., DR ROLON Admitting Unavailable JARED ., DR ROLON Attending Unavailable JARED ., DR ROLNO Admitting Unavailable JARED ., DR ROLON Consulting [...] to 67on 05-31-2022 . . Normal [facility] [place] [facility] Comment on above: Result Comment: Perf ormed at: WB Performed By: #### [id number] #### [facility] [address] [address] [address] Adria Amor Age Gdln ACOG Testing 30-65 Normal [facility] Comment on above: Performed By: #### 4 [id number] #### [facility] [address] [address] [address] Adria Amor DIAGNOSIS: Comment Normal [facility] Comment on above: Result Comment: NEGA TIVE FOR INTRAEPITHELIAL LESION OR MALIGNANCY. Performed at: WB Performed By: #### [id number] #### [facility] [address] [place] [address] Dr. Adria Amor HPV Aptima Negative Normal Negative [facility] Comment on above: Result Comment: This nucleic acid amplification test detects fourteen high-risk HPV types (16,18,31,33,35,39,45,51,52,56,58,59,66,68) without differentiation. Performed at: =G Performed By: #### 4 [id number] #### [facility] [address] [address] [address] Adria Amor HPV Genotype Reflex Comment Normal [facility] Comment on above: Result Comment: Crit eria not met, HPV Genotype not performed. Performed at: WB Performed By: #### 4 [id number] #### [facility] [address] [place] [address] Dr. Adria Amor Methodology: Comment Normal [facility] Comment on above: Result Comment: This liquid based ThinPrep(R) pap test was screened with the use of an image guided system. Performed at: WB Performed By: #### [id number] #### [facility] [address] [place] [address] Dr. Adria Amor Note: Comment Normal [facility] Comment on above: Result Comment: The Pap smear is a screening test designed to aid in the detection of premalignant and malignant conditions of the uterine cervix. It is not a diagnostic procedure and should not be used as the sole means of detecting cervical cancer. Both false-positive and false-negative reports do occur. . Performed at: WB Performed By: #### 4 [id number] #### [facility] [address] [place] [address] Dr. Adria Amor Performed by: Comment Normal [facility] Comment on above: Result Comment: William Pineda, Cash Surrender Calculator (ASCP) Performed at: WB Performed By: #### 4 [id number] #### [facility] [address] [place] [address] Dr. Adria Amor Specimen adequacy: Comment Normal [facility] Comment on above: Result Comment: Sati sfactory for evaluation. Endocervical and/or squamous metaplastic cells (endocervical component) are present. Performed at: WB Performed By: #### 4 [id number] #### [facility] [address] [place] [address] Dr. Adria Amor CBC AUTO DIFFon 11-17-2021 BASO # 0.0 103/ul Normal 0.0-0.1 [facility] Comment on above: Performed By: #### 4 [id number] #### [facility] [address] [place] [address] Dr. Adria Amor Basophils/100 WBC (Bld) 0.6 % Normal 0.2-2.0 [facility] Comment on above: Performed By: #### 4 [id number] #### [facility] [address] [place] [address] Dr. Adria Amor EO # 0.3 103/ul Normal 0.0-0.7 [facility] Comment on above: Performed By: #### 4 [id number] #### [facility] [address] [place] [address] Dr. Adria Amor Eosinophils/100 WBC (Bld) 4.0 % Normal 0.9-7.0 [facility] Comment on above: Performed By: #### 4 [id number] #### [facility] [address] [place] [address] Dr. Adria Amor Erythrocyte distribution wid th (RBC) [Ratio] 12.2 % Normal 11.0-15.0 [facility] Comment on above: Performed By: #### 4 [id number] #### [facility] [address] [place] [address] Dr. Adria Amor Hematocrit (Bld) [Volume fraction] 39.3 % Normal 3 6.0-48.0 [facility] Comment on above: Performed By: #### 4 [id number] #### [facility] [address] [place] [address] Dr. Adria Amor Hemoglobin (Bld) [Mass/Vol] 13.7 g/dL Normal 12.0-16. 0 [facility] Comment on above: Performed By: #### 4 [id number] #### [facility] [address] [place] [address] Dr. Adria Amor IG # 0.01 10e3/ul Normal 0.00-0.03 [facility] Comment on above: Performed By: #### 4 [id number] #### [facility] [address] [place] [address] Dr. Adria Amor IG % 0.2 % Normal 0.0-0.[address] [facility] Comment on above: Performed By: #### 4 [id number] #### [facility] [address] [place] [address] Dr. Adria Amor LYMPH # 1.9 103/ul Normal 1.2-3.[address] [facility] Comment on above: Performed By: #### 4 [id number] #### [facility] [address] [place] [address] Dr. Adria Amor Lymphocytes/100 WBC (Bld) 28.9 % Normal 20.5-60.0 [facility] Comment on above: Performed By: #### 4 [id number] #### [facility] [address] [place] [address] Dr. Adria Amor MANUAL DIFF REQ NO Normal [facility] Comment on above: Performed By: #### 4 [id number] #### [facility] [address] [place] [address] Dr. Adria Amor MCH (RBC) [Entitic mass] 32.4 pg Normal 26.7-34.0 [facility] Comment on above: Performed By: #### 4 [id number] #### [facility] [address] [place] [address] Dr. Adria Amor MCHC (RBC) [Mass/Vol] 34.9 g/dL Normal 29.9-35.2 [facility] Comment on above: Performed By: #### 4 [id number] #### [facility] [address] [place] [address] Dr. Adria Amor MCV (RBC) [Entitic vol] 92.9 fL Normal 81.0-99.0 [facility] Comment on above: Performed By: #### 4 [id number] #### [facility] [address] [place] [address] Dr. Adria Amor MONO # 0.5 103/ul Normal 0.3-0.8 [facility] Comment on above: Performed By: #### 4 [id number] #### [facility] [address] [place] [address] Dr. Adria Amor Monocytes/100 WBC (Bld) 7.4 % Normal 1.7-12.0 [facility] Comment on above: Performed By: #### 4 [id number] #### [facility] [address] [place] [address] Dr. Adria Amor NEUT # 3.8 103/ul Normal 1.4-6.5 [facility] [place] [facility] Comment on above: Performed By: #### 4 [id number] #### [facility] [address] [place] [address] Dr. Adria Amor Neutrophils/100 WBC (Bld) 58.9 % Normal 43.0-75.0 [facility] Comment on above: Performed By: #### 4 [id number] #### [facility] [address] [place] [address] Dr. Adria Amor Platelet mean volume (Bld) [Entitic vol] 9.7 fL Normal 9.5-13.5 [facility] Comment on above: Performed By: #### 4 [id number] #### [facility] [address] [place] [address] Dr. Adria Amor PLT 185 103/ul Normal 150-[address] [facility] Comment on above: Performed By: #### 4 [id number] #### [facility] [address] [place] [address] Dr. Adria Amor RBC 4.23 106/ul Normal 4.20-5.40 [facility] Comment on above: Performed By: #### 4 [id number] #### [facility] [address] [place] [address] Dr. Adria Amor WBC 6.5 103/ul Normal 4.0-11.0 [facility] Comment on above: Performed By: #### 4 [id number] #### [facility] [address] [place] [address] Dr. Adria Amor CYTOLOGYon 11-17-2021 SENT TO REF LAB 11/17/2021 Normal [facility] Comment on above: Performed By: #### C YTO #### [facility] [address] [place] [address] Dr. Adria Amor PREG QUANT HCGon 11-17-2021 HCG QUANT 1 mIU/mL Normal [facility] Comment on above: Performed By: #### 4 [id number] #### [facility] [address] [place] [address] Dr. Adira Amor HCG RANGE SEE BELOW Normal [facility] Comment on above: Result Comment: 5-50 0.2-1 WEEK 50-500 1-2 WEEKS 100-5,000 2-3 WEEKS 500-10,000 3-4 WEEKS 1,000-50,000 4-5 WEEKS 10,000-100,000 5-6 WEEKS 15,000-200,000 6-8 WEEKS 10,000- 100,000 2-3 MONTHS Performed By: #### 4 [id number] #### [facility] [address] [place] [address] Dr. Adria Amor CBC AUTO DIFFon 11-08-2021 BASO # 0.1 103/ul Normal 0.0-0.1 [facility] Comment on above: Performed By: #### C BC #### [facility] [address] [place] [address] Dr. Adria Amor Basophils/100 WBC (Bld) 0.7 % Normal 0.2-2.0 [facility] Comment on above: Performed By: #### C BC #### [facility] [address] [place] [address] Dr. Adria Amor EO # 0.3 103/ul Normal 0.0-0.7 [facility] Comment on above: Performed By: #### C BC #### [facility] [address] [place] [address] Dr. Adria Amor Eosinophils/100 WBC (Bld) 3.4 % Normal 0.9-7.0 [facility] Comment on above: Performed By: #### C BC #### [facility] [address] [place] [address] Dr. Adria Amor Erythrocyte distribution wid th (RBC) [Ratio] 11.9 % Normal 11.0-15.0 [facility] Comment on above: Performed By: #### C BC #### [facility] [address] [place] [address] Dr. Adria Amor Hematocrit (Bld) [Volume fraction] 40.2 % Normal 3 6.0-48.0 [facility] Comment on above: Performed By: #### C BC #### [facility] [address] [place] [address] Dr. Adria Amor Hemoglobin (Bld) [Mass/Vol] 13.7 g/dL Normal 12.0-16. 0 [facility] Comment on above: Performed By: #### C BC #### [facility] [address] [place] [address] Dr. Adria Amor IG # 0.02 10e3/ul Normal 0.00-0.03 [facility] Comment on above: Performed By: #### C BC #### [facility] [address] [place] [address] Dr. Adria Amor IG % 0.2 % Normal 0.0-0.5 [facility] Comment on above: Performed By: #### C BC #### [facility] [address] [place] [address] Dr. Adria Amor LYMPH # 2.9 103/ul Normal 1.2-3.8 [facility] Comment on above: Performed By: #### C BC #### [facility] [address] [place] [address] Dr. Adria Amor Lymphocytes/100 WBC (Bld) 35.1 % Normal 20.5-60.0 [facility] Comment on above: Performed By: #### C BC #### [facility] [address] [place] [address] Dr. Adria Amor MANUAL DIFF REQ NO Normal [facility] Comment on above: Performed By: #### C BC #### [facility] [address] [place] [address] Dr. Adria Amor MCH (RBC) [Entitic mass] 31.8 pg Normal 26.7-34.0 [facility] Comment on above: Performed By: #### C BC #### [facility] [address] [place] [address] Dr. Adria Amor MCHC (RBC) [Mass/Vol] 34.1 g/dL Normal 29.9-35.2 [facility] Comment on above: Performed By: #### C BC #### [facility] [address] [place] [address] Dr. Adria Amor MCV (RBC) [Entitic vol] 93.3 fL Normal 81.0-99.0 [facility] Comment on above: Performed By: #### C BC #### [facility] [address] [place] [address] Dr. Adria Amor MONO # 0.7 103/ul Normal 0.3-0.8 [facility] Comment on above: Performed By: #### C BC #### [facility] [address] [place] [address] Dr. Adria Amor Monocytes/100 WBC (Bld) 8.2 % Normal 1.7-12.0 [facility] Comment on above: Performed By: #### C BC #### [facility] [address] [place] [address] Dr. Adria Amor NEUT # 4.3 103/ul Normal 1.4-6.5 [facility] Comment on above: Performed By: #### C BC #### [facility] [address] [place] [address] Dr. Adria Amor Neutrophils/100 WBC (Bld) 52.4 % Normal 43.0-75.0 [facility] Comment on above: Performed By: #### C BC #### [facility] [address] [place] [address] Dr. Adria Amor Platelet mean volume (Bld) [ Entitic vol] 10.3 fL Normal 9.5-13.5 [facility] Comment on above: Performed By: #### C BC #### [facility] [address] [place] [address] Dr. Adria Amor PLT 256 103/ul Normal 150-450 [facility] Comment on above: Performed By: #### C BC #### [facility] [address] [place] [address] Dr. Adria Amor RBC 4.31 106/ul Normal 4.20-5.40 [facility] Comment on above: Performed By: #### C BC #### [facility] [address] [place] [address] Dr. Adria Amor WBC 8.2 103/ul Normal 4.0-11.0 [facility] Comment on above: Performed By: #### C BC #### [facility] [address] [place] [address] Dr. Adria Amor PREG QUANT HCGon 11-08-2021 HCG QUANT <1 Normal [facility] Comment on above: Performed By: #### P REGQNT #### [facility] [address] [place] [address] Dr. Adria Amor HCG RANGE SEE BELOW Normal [facility] Comment on above: Result Comment: 5-50 0.2-1 WEEK 50-500 1-2 WEEKS 100-5,000 2-3 WEEKS 500-10,000 3-4 WEEKS 1,000-50,000 4-5 WEEKS 10,000-100,000 5-6 WEEKS 15,000-200,000 6-8 WEEKS 10,000- 100,000 2-3 MONTHS Performed By: #### P REGQNT #### [facility] [address] [place] [address] Dr. Adria Amor ASYMPTOMATIC COVID-19 ANTIGE Non 10-23-2021 EUA Statement SEE BELOW Normal [facility] Comment on above: Result Comment: This [...] sooner. Performed By: #### C VDAGA #### [facility] [address] [place] [address] Dr. Adria Amor SARS-CoV-2 (COVID-19) RNA CHALO+probe Ql (Unsp spec) Positive Critically abnormal NEGATIVE [facility] Comment on above: Result Comment: SARS -CoV-2 antigen present; does not rule out coinfection with other pathogens. Performed By: #### C VDAGA #### [facility] [address] [place] [address] Dr. Adria Amor Covid-19 PCR (CVDTB)on 10-02 SARS-CoV-2 (COVID-19) RNA CHALO+probe Ql (Unsp spec) Detected Critically abnormal NOT DETECTED [facility] Comment on above: Result Comment: This test is not yet approved or cleared by the [place] FDA. When there are no FDA-approved or cleared tests available, and other criteria are met, FDA can make tests available under an emergency access mechanism called an Emergency Use Authorization (EUA). The EUA for this test is supported by the [place] of Health and Human Service's declaration that [...] used). Performed By: #### C VDTBH #### [facility] [address] [place] [address] Dr. Adria Amor ESTRADIOLon 09-22-2021 Estradiol 66.3 pg/mL Normal [facility] Comment on above: Result Comment: Adul t Female: Follicular phase 12.5 - 166.0 Ovulation phase 85.8 - 498.0 Luteal phase 43.8 - 211.0 Postmenopausal <6.0 - 54.7 1st trimester 215.0 - >4300.0 Aniya ECLIA methodology Performed By: #### E IVIS #### [facility] [address] [place] [address] Dr. Adria Amor FSHon 09-22-2021 FSH 4.0 mIU/mL Normal [facility] Comment on above: Result Comment: Adul t Female: Follicular phase 3.5 - 12.5 Ovulation phase 4.7 - 21.5 Luteal phase 1.7 - 7.7 Postmenopausal 25.8 - 134.8 Performed By: #### 4 [id number] #### [facility] [address] [place] [address] Dr. Adria Amor LUTEINIZING HORMONE (LH)on 0 09-22-2021 LH 14.1 mIU/mL Normal [facility] Comment on above: Result Comment: Adul t Female: Follicular phase 2.4 - 12.6 Ovulation phase 14.0 - 95.6 Luteal phase 1.0 - 11.4 Postmenopausal 7.7 - 58.5 Performed By: #### L BCL #### [facility] [address] [place] [address] Dr. Adria Amor PROGESTERONEon 09-22-2021 Progesterone 5.0 ng/mL Normal [facility] Comment on above: Result Comment: Foll icular phase 0.1 - 0.9 Luteal phase 1.8 - 23.9 Ovulation phase 0.1 - 12.0 First trimester 11.0 - 44.3 Second trimester 25.4 - 83.3 Third trimester 58.7 - 214.0 Postmenopausal 0.0 - 0.1 Performed By: #### P ROGES #### [facility] [address] [place] [address] Dr. Adria Amor TSHon 09-21-2021 TSH 1.400 uIU/mL Normal 0.358-3.740 [facility] Comment on above: Performed By: #### T #### [facility] [address] [address] [address] Adria Amor US PELVIS AND TRANSVAGon [...] by: MARY MYLES Date: 2021-09-21 08:26 Normal [facility] Encounters Encounter Date Encounter Type Care Provider Facility Start: 05-24-2022 End: 05-24-[address] GONZALES PINTO . Facility:[facility] Start: 11-17-2021 End: 11-17-[address] ESPINAL LISTED REQUEST Facility:[facility] Start: 11-13-2021 Encounter for preprocedural laboratory examination DR GONZALES PINTO . [facility] Start: 11-08-2021 End: 11-09-[address] GONZALES PINTO . Facility:[facility] Start: 11-08-2021 End: 11-09-2021 Encounter for preprocedural laboratory examination DR GONZALES PINTO . Facility:[facility] Start: 11-02-2021 Encounter for other preprocedural examination DR GONZALES PINTO . [facility] Start: 11-01-2021 End: 11-02-2021 ambulatory NONE LISTED REQUEST Facility:[facility] Start: 11-01-2021 End: 11-02-2021 Encounter for other preprocedural examination NONE LISTED REQUEST Facility:[facility] Start: 10-23-2021 End: 10-23-[address] NONE LISTED REQUEST Facility:[facility] Start: 10-17-2021 End: 10-17-[address] NONE LISTED REQUEST Facility:[facility] Start: 09-21-2021 End: 09-22-[address] GONZALES PINTO . Facility: Payers Date Payer Category Payer Unknown [id number] 2019 Unknown [id number] 1982 Unknown [id number] 2.16.84 [id number] 1982 Unknown [id number] 2.16.84 [id number] 1982 Unknown [id number] 2.16.84 [id number] 1982 Unknown [id number] 2.16.84 [id number] 1982 Unknown [id number] 2.16.84 [id number] 1982 Unknown [id number] 2.16.84 [id number] 1982 Unknown [id number] 2.16.84 [id number] 1959 Unknown [id number] Clinical Note 11-17-2021 Note Date & Type Note Facility 11-17-2021 Note OPERATIVE NOTE OPERATION DATE: 11/17/2021 PROCEDURE: Marva endometrial ablation, D AND C hysteroscopy, diagnostic laparoscopy, bilateral salpingectomy, right oophorectomy, fulguration of endometrial implants, lysis of adhesions. PREOPERATIVE DIAGNOSIS: Pelvis pain, menorrhagia. POSTOPERATIVE DIAGNOSIS: Pelvis pain, menorrhagia. ANESTHESIA: General. SURGEON: Gonzales Pinto D.O. PLASTICS ENGINEER: ALBERTA Bryan URINE OUTPUT: Yellow and clear. [...] and needle counts were correct x2. [facility] Summary Purpose Family History No Family History Records Found Advance Directives No Advanced Directives Records Found Additional Source Comments INFORMATION SOURCE (unrecogn ized section and content) DATE CREATED AUTHOR 06/09/2022 [facility] FOR RECORDS PERTAINING TO PATIENTS WHO [...] BE BASED ON THE PRIMARY CLINICAL RECORDS. [employer] [facility]. provides no warranty or guarantee of the accuracy or completeness of information in this document.
== END 2023-02-08 07:37 | disposition home or self-care (01) ==
LOC: VC 07:37
PROVIDERS: PCP Radiology Diagnostic Radiology; Visit Provider Radiology Diagnostic Radiology
DX: I80.02 Phlebitis and thrombophlebitis of superficial vessels of left lower extremity (principal)
CPT/HCPCS: 93971; G0463

== ENCOUNTER 2023-02-11 07:32 | Outpatient (OUT) | payer BC, SELFPAY ==
--- NOTE | 2023-02-11 | VEIN_ITS ---
[address] [address] Patient Name: MICHELLE ZEPEDA MRN: [id number] date: 1980 Sex: F Assigned Patient Location: Current Patient Location: Accession/Order Number: [id number] Exam Date: 02/11/2023 07:30 Report Date: 02/11/2023 08:37 At the request of: MARY GALLAGHER Procedure: VC INJ Foam Sclerosant WUS NET DEVELOPER SOFTWARE ENGINEER C PROCEDURE: VC INJ Foam Sclerosant WUS NET DEVELOPER SOFTWARE ENGINEER C COMPARISON: None. HISTORY: Pain due to varicose veins of bilateral legs I83.813 Pre-operative Diagnosis: CEAP class C3 venous insufficiency with pain, tenderness, edema and incompetent right leg varicose vein(s), chronic venous insufficiency right leg secondary to venous incompetence Post-operative Diagnosis: CEAP class C3 venous insufficiency with pain, tenderness, edema and incompetent right leg varicose vein(s), chronic venous insufficiency right leg secondary to venous incompetence Procedure Performed: 1. Ultrasound-guided microfoam chemical ablation with Varithenaregistered 2. Intraoperative ultrasound guidance Anesthesia: None Indications for Procedure: 42-year-old female who presents with a long history of lower extremity pain and swelling. The patient failed conservative medical therapy including medical compression stockings, exercise and analgesics. Prior procedures include intravenous laser ablation and micro- . Multiple incompetent varicosities of the right leg. Duplex scan showed reflux and enlarged diameters up to 4 mm. The patient underwent informed consent including management options where the complications of infection, bleeding, pain, and skin injury were discussed. Particular attention was spent discussing thrombus extension and deep vein thrombosis as well as the possibility of pulmonary embolus and treatment with oral or injectable blood thinners. Procedure: The patient walked to the procedure room. All applicable staff donned appropriate apparel. A procedure timeout was performed to confirm correct patient, correct extremity, correct procedure, and correct room set-up including presence of all applicable supplies, devices, and drugs. A duplex ultrasound, performed by myself confirmed the location and incompetence of branch saphenous varicosities and their course was marked on the skin together with the dilated tributaries. The extent of treatment of the vein and the associated varicosities was determined through ultrasound mapping. The skin was prepped and then punctured with a butterfly needle and advanced under ultrasound guidance. The Varithenaregistered canister was activated and the canister was primed and purged as required in the instructions for use. Varithenaregistered was drawn into a sterile syringe. The following injections were made: 5 cc injected into a 4 mm varicose vein distal medial right thigh 5 cc injected into a 4 mm varicose vein anterior proximal right lower leg Varithenaregistered was slowly administered at 0.5-1.0 cc/second with close observation by ultrasound of its course in the vessels. Total volume utilized was: 10cc. Following administration of Varithenaregistered the leg was elevated and the patient was asked to repeatedly dorsiflex the ankle to limit flow of Varithenaregistered into perforating veins. Once appropriate spasm had been confirmed in the treated veins, the vascular catheter was removed from the leg and light pressure was applied over the puncture site for hemostasis. The common femoral and deep superficial veins were then evaluated for flow and compressibility prior to dressing placement. The lower extremity was kept elevated at 45 degrees above the horizontal and cording material was applied over the saphenous segments and tributaries to allow for eccentric compression over the target vessels including the targeted saphenous vein(s). A multilayer dressing was applied consisting of foam pads, coban and thigh-high 20-30 mm Hg compression elastic support hose were placed on the patient. The leg was lowered only after compression had been applied and the patient was immediately ambulatory. The patient ambulated 10 minutes under supervision and was without apparent concerns at time of release. Post-care instructions include advising patient to keep post-treatment bandages in place and dry for 48 hours, avoid extended periods of inactivity, avoid heavy exercise for one week, wear compression stockings on the treated leg continuously for two weeks, to walk daily for 10 minutes over the next month. The patient was instructed to take an anti-inflammatory medicine as needed and to follow up for color duplex scan of the Saphenous veins, the treated branch saphenous varicosities, the adjacent deep veins, and additional treatment within 7 days. PERSONNEL: Avery Abreu RN Electronically authenticated by: MARY GALLAGHER Date: 02/11/2023 08:37
--- OUTSIDE RECORDS SUMMARY | 2023-02-20 05:19 | XMS_ITS | CCD ---
Author Name Unknown Address [address] [place] [id number] Organization [facility] Care Team Providers Care Waist Pleater Name Role Phone REQUEST, DR TEDDY LISTED [...] to 67on 05-31-2022 . . Normal [facility] Comment on above: Result Comment: Perf ormed at: WB Performed By: #### [id number] #### [facility] [address] [address] [address] Adria Amor Age Gdln ACOG Testing 30-65 Normal [facility] Comment on above: Performed By: #### [id number] #### [facility] [address] [address] [address] Adria Amor DIAGNOSIS: Comment Normal [facility] Comment on above: Result Comment: NEGA TIVE FOR INTRAEPITHELIAL LESION OR MALIGNANCY. Performed at: WB Performed By: #### 4 [id number] #### [facility] [address] [place] [address] Dr. Adria Amor HPV Aptima Negative Normal Negative [facility] Comment on above: Result Comment: This nucleic acid amplification test detects fourteen high-risk HPV types (16,18,31,33,35,39,45,51,52,56,58,59,66,68) without differentiation. Performed at: =G Performed By: #### 4 [id number] #### [facility] [address] [address] [address] Adria Amor HPV Genotype Reflex Comment Normal [facility] Comment on above: Result Comment: Crit eria not met, HPV Genotype not performed. Performed at: WB Performed By: #### 4 [id number] #### [facility] [address] [place] [address] Dr. Adria Amor Methodology: Comment Normal [facility] Comment on above: Result Comment: This liquid based ThinPrep(R) pap test was screened with the use of an image guided system. Performed at: WB Performed By: #### [id number] #### [facility] [address] [place] [address] Dr. Adria Amor Note: Comment Normal [facility] Comment on above: Result Comment: The Pap smear is a screening test designed to aid in the detection of premalignant and malignant conditions of the uterine cervix. It is not a diagnostic procedure and should not be used as the sole means of detecting cervical cancer. Both false-positive and false-negative reports do occur. . Performed at: WB Performed By: #### [id number] #### [facility] [address] [place] [address] Dr. Adria Amor Performed by: Comment Normal [facility] Comment on above: Result Comment: William iPneda, Field Tech (ASCP) Performed at: WB Performed By: #### 4 [id number] #### [facility] [address] [place] [address] Dr. Adria Amor Specimen adequacy: Comment Normal [facility] Comment on above: Result Comment: Sati sfactory for evaluation. Endocervical and/or squamous metaplastic cells (endocervical component) are present. Performed at: WB Performed By: #### 4 [id number] #### [facility] [address] [place] [address] Dr. Adria Amor CBC AUTO DIFFon 11-17-2021 BASO # 0.0 103/ul Normal 0.0-0.1 [facility] Comment on above: Performed By: #### 4 [id number] #### [facility] [address] [place] [address] Dr. Adria Amor Basophils/100 WBC (Bld) 0.6 % Normal 0.2-2.0 [facility] Comment on above: Performed By: #### 4 [id number] #### [facility] [address] [place] [address] Dr. Adria Amor EO # 0.3 103/ul Normal 0.0-0.7 [facility] Comment on above: Performed By: #### 4 [id number] #### [facility] [address] [place] [address] Dr. Adria Amor Eosinophils/100 WBC (Bld) 4.0 % Normal 0.9-7.0 [facility] Comment on above: Performed By: #### 4 [id number] #### [facility] [address] [place] [address] Dr. Adria Amor Erythrocyte distribution wid th (RBC) [Ratio] 12.2 % Normal 11.0-15.0 [facility] Comment on above: Performed By: #### 4 [id number] #### [facility] [address] [place] [address] Dr. Adria Amor Hematocrit (Bld) [Volume fraction] 39.3 % Normal 3 6.0-48.0 [facility] Comment on above: Performed By: #### 4 [id number] #### [facility] [address] [place] [address] Dr. Adria Amor Hemoglobin (Bld) [Mass/Vol] 13.7 g/dL Normal 12.0-16. 0 [facility] Comment on above: Performed By: #### 4 [id number] #### [facility] [address] [place] [address] Dr. Adria Amor IG # 0.01 10e3/ul Normal 0.00-0.03 [facility] Comment on above: Performed By: #### 4 [id number] #### [facility] [address] [place] [address] Dr. Adria Amor IG % 0.2 % Normal 0.0-0.5 [facility] Comment on above: Performed By: #### 4 [id number] #### [facility] [address] [place] [address] Dr. Adria Amor LYMPH # 1.9 103/ul Normal 1.2-3.8 [facility] Comment on above: Performed By: #### 4 [id number] #### [facility] [address] [place] [address] Dr. Adria Amor Lymphocytes/100 WBC (Bld) 28.9 % Normal 20.5-60.0 [facility] Comment on above: Performed By: #### 4 [id number] #### [facility] [address] [place] [address] Dr. Adria Amor MANUAL DIFF REQ NO Normal [facility] Comment on above: Performed By: #### 4 [id number] #### [facility] [address] [place] [address] Dr. Adria Amor MCH (RBC) [Entitic mass] 32.4 pg Normal 26.7-34.0 [facility] Comment on above: Performed By: #### 4 [id number] #### [facility] [address] [place] [address] Dr. Adria Amor MCHC (RBC) [Mass/Vol] 34.9 g/dL Normal 29.9-35.2 [facility] Comment on above: Performed By: #### 4 [id number] #### [facility] [address] [place] [address] Dr. Adria Amor MCV (RBC) [Entitic vol] 92.9 fL Normal 81.0-99.0 [facility] Comment on above: Performed By: #### 4 [id number] #### [facility] [address] [place] [address] Dr. Adria Amor MONO # 0.5 103/ul Normal 0.3-0.8 [facility] Comment on above: Performed By: #### 4 [id number] #### [facility] [address] [place] [address] Dr. Adria Amor Monocytes/100 WBC (Bld) 7.4 % Normal 1.7-12.0 [facility] Comment on above: Performed By: #### 4 [id number] #### [facility] [address] [place] [address] Dr. Adria Amor NEUT # 3.8 103/ul Normal 1.4-6.5 [facility] ost[facility] Comment on above: Performed By: #### 4 [id number] #### [facility] [address] [place] [address] Dr. Adria Amor Neutrophils/100 WBC (Bld) 58.9 % Normal 43.0-75.0 [facility] Comment on above: Performed By: #### 4 [id number] #### [facility] [address] [place] [address] Dr. Adria Amor Platelet mean volume (Bld) [Entitic vol] 9.7 fL Normal 9.5-13.5 [facility] Comment on above: Performed By: #### 4 [id number] #### [facility] [address] [place] [address] Dr. Adria Amor PLT 185 103/ul Normal 150-450 [facility] Comment on above: Performed By: #### 4 [id number] #### [facility] [address] [place] [address] Dr. Adria Amor RBC 4.23 106/ul Normal 4.20-5.40 [facility] Comment on above: Performed By: #### 4 [id number] #### [facility] [address] [place] [address] Dr. Adria Amor WBC 6.5 103/ul Normal 4.0-11.0 [facility] Comment on above: Performed By: #### 4 [id number] #### [facility] [address] [place] [address] Dr. Adria Amor CYTOLOGYon 11-17-2021 SENT TO REF LAB 11/17/2021 Normal [facility] Comment on above: Performed By: #### C YTO #### [facility] [address] [place] [address] Dr. Adria Amor PREG QUANT HCGon 11-17-2021 HCG QUANT 1 mIU/mL Normal [facility] Comment on above: Performed By: #### 4 [id number] #### [facility] [address] [place] [address] Dr. Adria Amor HCG RANGE SEE BELOW Normal [facility] Comment on above: Result Comment: 5-50 0.2-1 WEEK 50-500 1-2 WEEKS 100-5,000 2-3 WEEKS 500-10,000 3-4 WEEKS 1,000-50,000 4-5 WEEKS 10,000-100,000 5-6 WEEKS 15,000-200,000 6-8 WEEKS 10,000- 100,000 2-3 MONTHS Performed By: #### 4 [id number] #### [facility] [address] [place] [address] Dr. Adria Amor CBC AUTO DIFFon 11-08-2021 BASO # 0.1 103/ul Normal 0.0-0.1 [facility] Comment on above: Performed By: #### C BC #### [facility] [address] [place] [address] Dr. Adria Amor Basophils/100 WBC (Bld) 0.7 % Normal 0.2-2.0 [facility] Comment on above: Performed By: #### C BC #### [facility] [address] [place] [address] Dr. Adria Amor EO # 0.3 103/ul Normal 0.0-0.7 [facility] Comment on above: Performed By: #### C BC #### [facility] [address] [place] [address] Dr. Adria Amor Eosinophils/100 WBC (Bld) 3.4 % Normal 0.9-7.0 [facility] Comment on above: Performed By: #### C BC #### [facility] [address] [place] [address] Dr. Adria Amor Erythrocyte distribution wid th (RBC) [Ratio] 11.9 % Normal 11.0-15.0 [facility] Comment on above: Performed By: #### C BC #### [facility] [address] [place] [address] Dr. Adria Amor Hematocrit (Bld) [Volume fraction] 40.2 % Normal 3 6.0-48.0 [facility] Comment on above: Performed By: #### C BC #### [facility] [address] [place] [address] Dr. Adria Amor Hemoglobin (Bld) [Mass/Vol] 13.7 g/dL Normal 12.0-16. 0 [facility] Comment on above: Performed By: #### C BC #### [facility] [address] [place] [address] Dr. Adria Amor IG # 0.02 10e3/ul Normal 0.00-0.03 [facility] Comment on above: Performed By: #### C BC #### [facility] [address] [place] [address] Dr. Adria Amor IG % 0.2 % Normal 0.0-0.5 [facility] Comment on above: Performed By: #### C BC #### [facility] [address] [place] [address] Dr. Adria Amor LYMPH # 2.9 103/ul Normal 1.2-3.8 [facility] Comment on above: Performed By: #### C BC #### [facility] [address] [place] [address] Dr. Adria Amor Lymphocytes/100 WBC (Bld) 35.1 % Normal 20.5-60.0 [facility] Comment on above: Performed By: #### C BC #### [facility] [address] [place] [address] Dr. Adria Amor MANUAL DIFF REQ NO Normal [facility] Comment on above: Performed By: #### C BC #### [facility] [address] [place] [address] Dr. Adria Amor MCH (RBC) [Entitic mass] 31.8 pg Normal 26.7-34.0 [facility] Comment on above: Performed By: #### C BC #### [facility] [address] [place] [address] Dr. Adria Amor MCHC (RBC) [Mass/Vol] 34.1 g/dL Normal 29.9-35.2 [facility] Comment on above: Performed By: #### C BC #### [facility] [address] [place] [address] Dr. Adria Amor MCV (RBC) [Entitic vol] 93.3 fL Normal 81.0-99.0 [facility] Comment on above: Performed By: #### C BC #### [facility] [address] [place] [address] Dr. Adria Amor MONO # 0.7 103/ul Normal 0.3-0.8 [facility] Comment on above: Performed By: #### C BC #### [facility] [address] [place] [address] Dr. Adria Amor Monocytes/100 WBC (Bld) 8.2 % Normal 1.7-12.0 [facility] Comment on above: Performed By: #### C BC #### [facility] [address] [place] [address] Dr. Adria Amor NEUT # 4.3 103/ul Normal 1.4-6.5 [facility] Comment on above: Performed By: #### C BC #### [facility] [address] [place] [address] Dr. Adria Amor Neutrophils/100 WBC (Bld) 52.4 % Normal 43.0-75.0 [facility] Comment on above: Performed By: #### C BC #### [facility] [address] [place] [address] Dr. Adria Amor Platelet mean volume (Bld) [ Entitic vol] 10.3 fL Normal 9.5-13.5 [facility] pital Comment on above: Performed By: #### C BC #### [facility] [address] [place] [address] Dr. Adria Amor PLT 256 103/ul Normal 150-450 [facility] Comment on above: Performed By: #### C BC #### [facility] [address] [place] [address] Dr. Adria Amor RBC 4.31 106/ul Normal 4.20-5.40 [facility] Comment on above: Performed By: #### C BC #### [facility] [address] [place] [address] Dr. Adria Amor WBC 8.2 103/ul Normal 4.0-11.0 [facility] Comment on above: Performed By: #### C BC #### [facility] [address] [place] [address] Dr. Adria Amor PREG QUANT HCGon 11-08-2021 HCG QUANT <1 Normal [facility] Comment on above: Performed By: #### P REGQNT #### [facility] [address] [place] [address] Dr. Adria Amor HCG RANGE SEE BELOW Normal [facility] Comment on above: Result Comment: 5-50 0.2-1 WEEK 50-500 1-2 WEEKS 100-5,000 2-3 WEEKS 500-10,000 3-4 WEEKS 1,000-50,000 4-5 WEEKS 10,000-100,000 5-6 WEEKS 15,000-200,000 6-8 WEEKS 10,000- 100,000 2-3 MONTHS Performed By: #### P REGQNT #### [facility] [address] [place] [address] Dr. Adria Amor ASYMPTOMATIC COVID-19 ANTIGE Non 10-23-2021 EUA Statement SEE BELOW Normal [facility] Comment on above: Result Comment: This test [...] sooner. Performed By: #### C VDAGA #### [facility] [address] [place] [address] Dr. Adria Amor SARS-CoV-2 (COVID-19) RNA CHALO+probe Ql (Unsp spec) Positive Critically abnormal NEGATIVE [facility] Comment on above: Result Comment: SARS -CoV-2 antigen present; does not rule out coinfection with other pathogens. Performed By: #### C VDAGA #### [facility] [address] [place] [address] Dr. Adria Amor Covid-19 PCR (CVDTB)on 10-02 SARS-CoV-2 (COVID-19) RNA CHALO+probe Ql (Unsp spec) Detected Critically abnormal NOT DETECTED [facility] Comment on above: Result Comment: This test is not yet approved or cleared by the [place] FDA. When there are no FDA-approved or cleared tests available, and other criteria are met, FDA can make tests available under an emergency access mechanism called an Emergency Use Authorization (EUA). The EUA for this test is supported by the [place] of Health and Human Service's declaration that [...] used). Performed By: #### C VDTBH #### [facility] [address] [place] [address] Dr. Adria Amor ESTRADIOLon 09-22-2021 Estradiol 66.3 pg/mL Normal [facility] Comment on above: Result Comment: Adul t Female: Follicular phase 12.5 - 166.0 Ovulation phase 85.8 - 498.0 Luteal phase 43.8 - 211.0 Postmenopausal <6.0 - 54.7 1st trimester 215.0 - >4300.0 Aniya ECLIA methodology Performed By: #### E IVIS #### [facility] [address] [place] [address] Dr. Adria Amor FSHon 09-22-2021 FSH 4.0 mIU/mL Normal [facility] Comment on above: Result Comment: Adul t Female: Follicular phase 3.5 - 12.5 Ovulation phase 4.7 - 21.5 Luteal phase 1.7 - 7.7 Postmenopausal 25.8 - 134.8 Performed By: #### 4 [id number] #### [facility] [address] [place] [address] Dr. Adria Amor LUTEINIZING HORMONE (LH)on 0 09-22-2021 LH 14.1 mIU/mL Normal [facility] Comment on above: Result Comment: Adul t Female: Follicular phase 2.4 - 12.6 Ovulation phase 14.0 - 95.6 Luteal phase 1.0 - 11.4 Postmenopausal 7.7 - 58.5 Performed By: #### L BCL #### [facility] [address] [place] [address] Dr. Adria Amor PROGESTERONEon 09-22-2021 Progesterone 5.0 ng/mL Normal [facility] Comment on above: Result Comment: Foll icular phase 0.1 - 0.9 Luteal phase 1.8 - 23.9 Ovulation phase 0.1 - 12.0 First trimester 11.0 - 44.3 Second trimester 25.4 - 83.3 Third trimester 58.7 - 214.0 Postmenopausal 0.0 - 0.1 Performed By: #### P ROGES #### [facility] [address] [place] [address] Dr. Adria Amor TSHon 09-21-2021 TSH 1.400 uIU/mL Normal 0.358-3.740 [facility] Comment on above: Performed By: #### T #### [facility] [address] [address] [address] Adria Amor US PELVIS AND TRANSVAGon [...] by: MARY MYLES Date: 2021-09-21 08:26 Normal [facility] Encounters Encounter Date Encounter Type Care Provider Facility Start: 05-24-2022 End: 05-24-[address] GONZALES PINTO . Facility:[facility] Start: 11-17-2021 End: 11-17-[address] ESPINAL LISTED REQUEST Facility:[facility] Start: 11-13-2021 Encounter for preprocedural laboratory examination DR GONZALES PINTO . [facility] Start: 11-08-2021 End: 11-09-[address] GONZALES PINTO . Facility:[facility] Start: 11-08-2021 End: 11-09-2021 Encounter for preprocedural laboratory examination DR GONZALES PINTO . Facility:[facility] Start: 11-02-2021 Encounter for other preprocedural examination DR GONZALES PINTO . [facility] Start: 11-01-2021 End: 11-02-2021 ambulatory NONE LISTED REQUEST Facility:[facility] Start: 11-01-2021 End: 11-02-2021 Encounter for other preprocedural examination NONE LISTED REQUEST Facility:[facility] Start: 10-23-2021 End: 10-23-[address] NONE LISTED REQUEST Facility:[facility] Start: 10-17-2021 End: 10-17-[address] NONE LISTED REQUEST Facility:[facility] Start: 09-21-2021 End: 09-22-[address] GONZALES PINTO . Facility: Payers Date Payer Category Payer Unknown [id number] 2019 Unknown [id number] 1980 Unknown [id number] 2.16.84 [id number] 1980 Unknown [id number] 2.16.84 [id number] 1982 Unknown [id number] 2.16.84 [id number] 1982 Unknown [id number] 2.16.84 [id number] 1982 Unknown [id number] 2.16.84 [id number] 1982 Unknown [id number] 2.16.84 [id number] 1982 Unknown [id number] 2.16.84 [id number] 1959 Unknown [id number] Clinical Note 11-17-2021 Note Date & Type Note Facility 11-17-2021 Note OPERATIVE NOTE OPERATION DATE: 11/17/2021 PROCEDURE: Marva endometrial ablation, D AND C hysteroscopy, diagnostic laparoscopy, bilateral salpingectomy, right oophorectomy, fulguration of endometrial implants, lysis of adhesions. PREOPERATIVE DIAGNOSIS: Pelvis pain, menorrhagia. POSTOPERATIVE DIAGNOSIS: Pelvis pain, menorrhagia. ANESTHESIA: General. SURGEON: Gonzales Pinto D.O. SUMO WRESTLER: ALBERTA Bryan URINE OUTPUT: Yellow and clear. [...] and needle counts were correct x2. [facility] Summary Purpose Family History No Family History Records Found Advance Directives No Advanced Directives Records Found Additional Source Comments INFORMATION SOURCE (unrecogn ized section and content) DATE CREATED AUTHOR 06/09/2022 [facility] FOR RECORDS PERTAINING TO PATIENTS WHO [...] BE BASED ON THE PRIMARY CLINICAL RECORDS. [facility]. provides no warranty or guarantee of the accuracy or completeness of information in this document.
== END 2023-02-11 07:33 | disposition home or self-care (01) ==
LOC: VC 07:32
PROVIDERS: PCP Radiology Diagnostic Radiology; Visit Provider Radiology Diagnostic Radiology
DX: I83.813 Varicose veins of bilateral lower extremities with pain (principal)
CPT/HCPCS: 36466

== ENCOUNTER 2023-02-13 07:23 | Outpatient (OUT) | payer BC, SELFPAY ==
--- NOTE | 2023-02-13 | VEIN_ITS ---
Patient Name: MICHELLE ZEPEDA MR#: [id number] : 1980 Exam Date: 02/13/2023 Ordering Doctor: DR MARY GALLAGHER M.D. RADIOLOGY REPORT PROCEDURE: [facility] EST LMTD VEIN CENTER - OFFICE VISIT FOLLOW UP COMPARISON: [facility], 02/08/2023. PROGRESS NOTES: The patient reports improvement in leg symptoms. There has been interval reduction in varicosities. The patient has followed our recommendations to walk 20-30 minutes once or twice per day since the procedure. Physical exam demonstrates decrease in varicosities of the leg. Persistent spider veins are identified along the legs bilaterally. Mild postprocedural bruising. Review of the ultrasound performed the same day demonstrates occlusive thrombus extending throughout the treated vein(s), see separate report, consistent with a successful ablation. No thrombus extending into or beyond the saphenofemoral junction. The patient expressed a desire to proceed with treatment of bilateral spider veins. The patient was informed that treatment was a process and would require 2-3 procedures[facility]: 1. Successful ablation of the treated right leg branch saphenous vein(s). 2. Persistent spider veins and mild lower extremity symptoms. PLAN: Bilateral lower extremity sclerotherapy. Nurse notes, history and physical were reviewed and confirmed, see attached forms. The nurse was present throughout the physical exam and consultation Dictated by: Alvin Waterman M.D. on 02/13/2023 at 08:12 Approved by: Alvin Waterman M.D. on 02/13/2023 at 08:14
--- NOTE | 2023-02-13 07:25 | VEIN_ITS ---
Patient Name: MICHELLE ZEPEDA MR#: [id number] : 1980 Exam Date: 02/13/2023 Ordering Doctor: DR MARY GALLAGHER M.D. RADIOLOGY REPORT PROCEDURE: VC EXT VENOUS RT LMTD COMPARISON: VC EXT VENOUS RT LMTD, 02/04/2023. INDICATIONS: Phlebitis of superficial veins of rt lower extremity I80.01 TECHNIQUE: Lower extremity bruner scale and Duplex Doppler evaluation of the deep venous system from the inguinal ligament through the calf veins. FINDINGS: REGION: Right lower extremity. THROMBI: Negative for DVT. Varithena induced thrombus visualized at mid/med thigh and prox/ant calf. COMPRESSIBILITY: Non-compressible segments corresponding to thrombus FLOW: Areas of no flow corresponding to thrombus OTHER: No patent varicose veins remain. CONCLUSION: 1. Successful post ablation occlusion of right leg treated branch saphenous varicosities. Dictated by: Alvin Waterman M.D. on 02/13/2023 at 08:12 Approved by: Alvin Waterman M.D. on 02/13/2023 at 08:12
== END 2023-02-13 07:24 | disposition home or self-care (01) ==
LOC: VC 07:23
PROVIDERS: PCP Radiology Diagnostic Radiology; Visit Provider Radiology Diagnostic Radiology
DX: I80.01 Phlebitis and thrombophlebitis of superficial vessels of right lower extremity (principal)
CPT/HCPCS: 93971; G0463

== ENCOUNTER 2023-02-15 07:39 | Outpatient (OUT) | payer BC, SELFPAY ==
--- NOTE | 2023-02-15 07:42 | VEIN_ITS ---
[address] [address] Patient Name: MICHELLE ZEPEDA MRN: [id number] date: 1980 Sex: F Assigned Patient Location: Current Patient Location: Accession/Order Number: [id number] Exam Date: 02/15/2023 07:48 Report Date: 02/15/2023 08:48 At the request of: MARY GALLAGHER Procedure: VC INJ Sclerosing SOLMULT Vein EXAMINATION: VC INJ Sclerosing SOLMULT Vein HISTORY: Pain due to varicose veins of bilateral legs I83.813 COMPARISON: No relevant comparison available. TECHNIQUE: The risks and benefits of the procedure were explained at length to the patient and informed written consent was obtained. Avery Abreu was present and assisted. The procedure was performed under sterile technique. The patient's leg was wrapped with Coban and postprocedural verbal and written instructions provided. SCLEROSANT: 4 cc, 0.5% polidocanol VEIN(S) INJECTED: 28 veins in the left leg VISUALIZATION: Ultrasound was not used to visualize the sclerosant ANESTHESIA: Supercooled air COMPLICATIONS: None VEIN/VC INJ Sclerosing SOLMULT Vein IMPRESSION: Technically successful sclerotherapy as described Electronically authenticated by: MARY GALLAGHER Date: 02/15/2023 08:48
== END 2023-02-15 07:40 | disposition home or self-care (01) ==
LOC: VC 07:39
PROVIDERS: PCP Radiology Diagnostic Radiology; Visit Provider Radiology Diagnostic Radiology
DX: I83.813 Varicose veins of bilateral lower extremities with pain (principal)
CPT/HCPCS: 36471

== ENCOUNTER 2023-02-18 07:26 | Outpatient (OUT) | payer BC, SELFPAY ==
--- NOTE | 2023-02-18 07:38 | VEIN_ITS ---
[address] [address] Patient Name: MICHELLE ZEPEDA MRN: [id number] date: 1980 Sex: F Assigned Patient Location: Current Patient Location: Accession/Order Number: [id number] Exam Date: 02/18/2023 07:44 Report Date: 02/18/2023 08:44 At the request of: MARY GALLAGHER Procedure: VC INJ Sclerosing SOLMULT Vein EXAMINATION: VC INJ Sclerosing SOLMULT Vein HISTORY: Pain due to varicose veins of bilateral legs I83.813 COMPARISON: No relevant comparison available. TECHNIQUE: The risks and benefits of the procedure were explained at length to the patient and informed written consent was obtained. Avery Abreu was present and assisted. The procedure was performed under sterile technique. The patient's leg was wrapped with Coban and postprocedural verbal and written instructions provided. SCLEROSANT: 4 cc, 0.5% polidocanol VEIN(S) INJECTED: 29 veins in the right leg VISUALIZATION: Ultrasound was not used to visualize the sclerosant ANESTHESIA: Supercooled air COMPLICATIONS: None VEIN/VC INJ Sclerosing SOLMULT Vein IMPRESSION: Technically successful sclerotherapy as described Electronically authenticated by: MARY GALLAGHER Date: 02/18/2023 08:44
== END 2023-02-18 07:27 | disposition home or self-care (01) ==
LOC: VC 07:26
PROVIDERS: PCP Radiology Diagnostic Radiology; Visit Provider Radiology Diagnostic Radiology
DX: I83.813 Varicose veins of bilateral lower extremities with pain (principal)
CPT/HCPCS: 36471

== ENCOUNTER 2023-02-27 14:40 | Outpatient (OUT) | payer BC, SELFPAY ==
--- NOTE | 2023-02-27 14:42 | VEIN_ITS ---
[address] [address] Patient Name: MICHELLE ZEPEDA MRN: [id number] date: 1980 Sex: F Assigned Patient Location: Current Patient Location: Accession/Order Number: [id number] Exam Date: 02/27/2023 14:42 Report Date: 02/27/2023 15:21 At the request of: MARY GALLAGHER Procedure: VC INJ Sclerosing SOLMULT Vein EXAMINATION: VC INJ Sclerosing SOLMULT Vein HISTORY: Pain due to varicose veins of bilateral legs I83.813 The risks and benefits of the procedure were explained at length to the patient and informed written consent was obtained. The procedure was performed under sterile technique. The patient's leg was wrapped with Coban and postprocedural verbal and written instructions provided. Avery Abreu RN was present and assisted. SCLEROSANT: 2mL 0.5% Polidocanol. VEIN(S) INJECTED: 28 veins in the left leg. VISUALIZATION: Ultrasound was not used to visualize the sclerosant. ANESTHESIA: Supercooled air. COMPLICATIONS: None. Electronically authenticated by: RIGOBERTO HU Date: 02/27/2023 15:21
== END 2023-02-27 14:41 | disposition home or self-care (01) ==
LOC: VC 14:40
PROVIDERS: PCP Radiology Diagnostic Radiology; Visit Provider Radiology Diagnostic Radiology
DX: I83.813 Varicose veins of bilateral lower extremities with pain (principal)
CPT/HCPCS: 36471

== ENCOUNTER 2023-03-01 11:25 | Outpatient (OUT) | payer BC, SELFPAY ==
--- NOTE | 2023-03-01 11:28 | VEIN_ITS ---
[address] [address] Patient Name: MICHELLE ZEPEDA MRN: [id number] date: 1980 Sex: F Assigned Patient Location: Current Patient Location: Accession/Order Number: [id number] Exam Date: 03/01/2023 11:30 Report Date: 03/01/2023 12:40 At the request of: MARY GALLAGHER Procedure: VC INJ Sclerosing SOLMULT Vein EXAMINATION: VC INJ Sclerosing SOLMULT Vein HISTORY: Pain due to varicose veins of bilateral legs I83.813 The risks and benefits of the procedure were explained at length to the patient and informed written consent was obtained. The procedure was performed under sterile technique. The patient's leg was wrapped with Coban and postprocedural verbal and written instructions provided. Avery Abreu RN was present and assisted. SCLEROSANT: 2mL 0.5% Polidocanol. VEIN(S) INJECTED: 21 veins in the right leg. VISUALIZATION: Ultrasound was not used to visualize the sclerosant. ANESTHESIA: Supercooled air. COMPLICATIONS: None. Electronically authenticated by: RIGOBERTO HU Date: 03/01/2023 12:40
--- OUTSIDE RECORDS SUMMARY | 2023-03-01 11:46 | XMS_ITS | CCD ---
Author Name Unknown Address [address] [place] [id number] Organization [facility] Care Team Providers Care Gymnasium Teacher Name Role Phone REQUEST, DR TEDDY LISTED [...] Results Test Name Value Interpretation Reference Range Facility PAP ACOG PANEL 2: 30 to 65on 05-31-2022 . . [facility] Comment on above: Result Comment: Perf ormed at: WB Performed By: #### [id number] #### [facility] [address] [place] [address] Dr. Adria Amor Age Gdln ACOG Testing 30-65 [facility] Comment on above: Performed By: #### 4 [id number] #### [facility] [address] [address] [address] Adria Amor DIAGNOSIS: Comment [facility] Comment on above: Result Comment: NEGA TIVE FOR INTRAEPITHELIAL LESION OR MALIGNANCY. Performed at: WB Performed By: #### 4 [id number] #### [facility] [address] [place] [address] Dr. Adria Amor HPV Aptima Negative Normal Negative [facility] Comment on above: Result Comment: This nucleic acid amplification test detects fourteen high-risk HPV types (16,18,31,33,35,39,45,51,52,56,58,59,66,68) without differentiation. Performed at: =G Performed By: #### 4 [id number] #### [facility] [address] [place] [address] Dr. Adria Amor HPV Genotype Reflex Comment Normal [facility] Comment on above: Result Comment: Crit eria not met, HPV Genotype not performed. Performed at: WB Performed By: #### 4 [id number] #### [facility] [address] [place] [address] Dr. Adria Amor Methodology: Comment Normal [facility] Comment on above: Result Comment: This liquid based ThinPrep(R) pap test was screened with the use of an image guided system. Performed at: WB Performed By: #### 4 [id number] #### [facility] [address] [place] [address] Dr. Adria Amor Note: Comment Normal [facility] Comment on above: Result Comment: The Pap smear is a screening test designed to aid in the detection of premalignant and malignant conditions of the uterine cervix. It is not a diagnostic procedure and should not be used as the sole means of detecting cervical cancer. Both false-positive and false-negative reports do occur. . Performed at: WB Performed By: #### 4 [id number] #### [facility] [address] [place] [address] Dr. Adria Amor Performed by: Comment Normal [facility] Comment on above: Result Comment: William Pineda, Tube Rebuilder (ASCP) Performed at: WB Performed By: #### 4 [id number] #### [facility] [address] [place] [address] Dr. Adria Amor Specimen adequacy: Comment Normal [facility] Comment on above: Result Comment: Sati sfactory for evaluation. Endocervical and/or squamous metaplastic cells (endocervical component) are present. Performed at: WB Performed By: #### 4 [id number] #### [facility] [address] [place] [address] Dr. Adria Amor CBC AUTO DIFFon 11-17-2021 BASO # 0.0 103/ul Normal 0.0-0.1 [facility] Comment on above: Performed By: #### 4 [id number] #### [facility] [address] [place] [address] Dr. Adria Amor Basophils/100 WBC (Bld) 0.6 % Normal 0.2-2.0 [facility] Comment on above: Performed By: #### 4 [id number] #### [facility] [address] [place] [address] Dr. Adria Amor EO # 0.3 103/ul Normal 0.0-0.7 [facility] Comment on above: Performed By: #### 4 [id number] #### [facility] [address] [place] [address] Dr. Adria Amor Eosinophils/100 WBC (Bld) 4.0 % Normal 0.9-7.0 [facility] Comment on above: Performed By: #### 4 [id number] #### [facility] [address] [place] [address] Dr. Adria Amor Erythrocyte distribution width (RBC) [Ratio] 12.2 % Normal 11.0-15.0 [facility] Comment on above: Performed By: #### 4 [id number] #### [facility] [address] [place] [address] Dr. Adria Amor Hematocrit (Bld) [Volume fraction] 39.3 % Normal 36.0-48.0 [facility] Comment on above: Performed By: #### 4 [id number] #### [facility] [address] [place] [address] Dr. Adria Amor Hemoglobin (Bld) [Mass/Vol] 13.7 g/dL Normal 12.0-16.0 [facility] Comment on above: Performed By: #### 4 [id number] #### [facility] [address] [place] [address] Dr. Adria Amor IG # 0.01 10e3/ul Normal 0.00-0.03 [facility] Comment on above: Performed By: #### 4 [id number] #### [facility] [address] [place] [address] Dr. Adria Amor IG % 0.2 % Normal 0.0-0.5 [facility] Comment on above: Performed By: #### 4 [id number] #### [facility] [address] [place] [address] Dr. Adria Amor LYMPH # 1.9 103/ul Normal 1.2-3.8 [facility] Comment on above: Performed By: #### 4 [id number] #### [facility] [address] [place] [address] Dr. Adria Amor Lymphocytes/100 WBC (Bld) 28.9 % Normal 20.5-60.0 [facility] Comment on above: Performed By: #### 4 [id number] #### [facility] [address] [place] [address] Dr. Adria Amor MANUAL DIFF REQ NO Normal [facility] Comment on above: Performed By: #### 4 [id number] #### [facility] [address] [place] [address] Dr. Adria Amor MCH (RBC) [Entitic mass] 32.4 pg Normal 26.7-34.0 [facility] Comment on above: Performed By: #### 4 [id number] #### [facility] [address] [place] [address] Dr. Adria Amor MCHC (RBC) [Mass/Vol] 34.9 g/dL Normal 29.9-35.2 [facility] Comment on above: Performed By: #### 4 [id number] #### [facility] [address] [place] [address] Dr. Adria Amor MCV (RBC) [Entitic vol] 92.9 fL Normal 81.0-99.0 [facility] Comment on above: Performed By: #### 4 [id number] #### [facility] [address] [place] [address] Dr. Adria Amor MONO # 0.5 103/ul Normal 0.3-0.8 [facility] Comment on above: Performed By: #### 4 [id number] #### [facility] [address] [place] [address] Dr. Adria Amor Monocytes/100 WBC (Bld) 7.4 % Normal 1.7-12.0 [facility] Comment on above: Performed By: #### 4 [id number] #### [facility] [address] [place] [address] Dr. Adria Amor NEUT # 3.8 103/ul Normal 1.4-6.5 [facility] Comment on above: Performed By: #### 4 [id number] #### [facility] [address] [place] [address] Dr. Adria Amor Neutrophils/100 WBC (Bld) 58.9 % Normal 43.0-75.0 [facility] Comment on above: Performed By: #### 4 [id number] #### [facility] [address] [place] [address] Dr. Adria Amor Platelet mean volume (Bld) [Entitic vol] 9.7 fL Normal 9.5-13.5 [facility] Comment on above: Performed By: #### 4 [id number] #### [facility] [address] [place] [address] Dr. Adria Amor PLT 185 103/ul Normal 150-450 [facility] Comment on above: Performed By: #### 4 [id number] #### [facility] [address] [place] [address] Dr. Adria Amor RBC 4.23 106/ul Normal 4.20-5.40 [facility] Comment on above: Performed By: #### 4 [id number] #### [facility] [address] [place] [address] Dr. Adria Amor WBC 6.5 103/ul Normal 4.0-11.0 [facility] Comment on above: Performed By: #### 4 [id number] #### [facility] [address] [place] [address] Dr. Adria Amor CYTOLOGYon 09-16-2022 SENT TO REF LAB 11/17/2021 Normal [facility] Comment on above: Performed By: #### C YTO #### [facility] [address] [place] [address] Dr. Adria Amor PREG QUANT HCGon 11-17-2021 HCG QUANT 1 mIU/mL Normal [facility] Comment on above: Performed By: #### 4 [id number] #### [facility] [address] [place] [address] Dr. Adria Amor HCG RANGE SEE BELOW Normal [facility] Comment on above: Result Comment: 5-50 0.2-1 WEEK 50-500 1-2 WEEKS 100-5,000 2-3 WEEKS 500-10,000 3-4 WEEKS 1,000-50,000 4-5 WEEKS 10,000-100,000 5-6 WEEKS 15,000-200,000 6-8 WEEKS 10,000-100,000 2-3 MONTHS Performed By: #### 4 [id number] #### [facility] [address] [place] [address] Dr. Adria Amor CBC AUTO DIFFon 11-08-2021 BASO # 0.1 103/ul Normal 0.0-0.1 [facility] Comment on above: Performed By: #### C BC #### [facility] [address] [place] [address] Dr. Adria Amor Basophils/100 WBC (Bld) 0.7 % Normal 0.2-2.0 [facility] Comment on above: Performed By: #### C BC #### [facility] [address] [place] [address] Dr. Adria Amor EO # 0.3 103/ul Normal 0.0-0.7 [facility] Comment on above: Performed By: #### C BC #### [facility] [address] [place] [address] Dr. Adria Amor Eosinophils/100 WBC (Bld) 3.4 % Normal 0.9-7.0 [facility] Comment on above: Performed By: #### C BC #### [facility] [address] [place] [address] Dr. Adria Amor Erythrocyte distribution width (RBC) [Ratio] 11.9 % Normal 11.0-15.0 [facility] Comment on above: Performed By: #### C BC #### [facility] [address] [place] [address] Dr. Adria Amor Hematocrit (Bld) [Volume fraction] 40.2 % Normal 36.0-48.0 [facility] Comment on above: Performed By: #### C BC #### [facility] [address] [place] [address] Dr. Adria Amor Hemoglobin (Bld) [Mass/Vol] 13.7 g/dL Normal 12.0-16.0 [facility] Comment on above: Performed By: #### C BC #### [facility] [address] [place] [address] Dr. Adria Amor IG # 0.02 10e3/ul Normal 0.00-0.03 [facility] Comment on above: Performed By: #### C BC #### [facility] [address] [place] [address] Dr. Adria Amor IG % 0.2 % Normal 0.0-0.5 [facility] Comment on above: Performed By: #### C BC #### [facility] [address] [place] [address] Dr. Adria Amor LYMPH # 2.9 103/ul Normal 1.2-3.8 [facility] Comment on above: Performed By: #### C BC #### [facility] [address] [place] [address] Dr. Adria Amor Lymphocytes/100 WBC (Bld) 35.1 % Normal 20.5-60.0 [facility] Comment on above: Performed By: #### C BC #### [facility] [address] [place] [address] Dr. Adria Amor MANUAL DIFF REQ NO Normal [facility] Comment on above: Performed By: #### C BC #### [facility] [address] [place] [address] Dr. Adria Amor MCH (RBC) [Entitic mass] 31.8 pg Normal 26.7-34.0 [facility] Comment on above: Performed By: #### C BC #### [facility] [address] [place] [address] Dr. Adria Amor MCHC (RBC) [Mass/Vol] 34.1 g/dL Normal 29.9-35.2 [facility] Comment on above: Performed By: #### C BC #### [facility] [address] [place] [address] Dr. Adria Amor MCV (RBC) [Entitic vol] 93.3 fL Normal 81.0-99.0 [facility] Comment on above: Performed By: #### C BC #### [facility] [address] [place] [address] Dr. Adria Amor MONO # 0.7 103/ul Normal 0.3-0.8 [facility] Comment on above: Performed By: #### C BC #### [facility] [address] [place] [address] Dr. Adria Amor Monocytes/100 WBC (Bld) 8.2 % Normal 1.7-12.0 [facility] Comment on above: Performed By: #### C BC #### [facility] [address] [place] [address] Dr. Adria Amor NEUT # 4.3 103/ul Normal 1.4-6.5 [facility] Comment on above: Performed By: #### C BC #### [facility] [address] [place] [address] Dr. Adria Amor Neutrophils/100 WBC (Bld) 52.4 % Normal 43.0-75.0 [facility] Comment on above: Performed By: #### C BC #### [facility] [address] [place] [address] Dr. Adria Amor Platelet mean volume (Bld) [Entitic vol] 10.3 fL Normal 9.5-13.5 [facility] Comment on above: Performed By: #### C BC #### [facility] [address] [place] [address] Dr. Adria Amor PLT 256 103/ul Normal 150-450 [facility] Comment on above: Performed By: #### C BC #### [facility] [address] [place] [address] Dr. Adria Amor RBC 4.31 106/ul Normal 4.20-5.40 [facility] Comment on above: Performed By: #### C BC #### [facility] [address] [place] [address] Dr. Adria Amor WBC 8.2 103/ul Normal 4.0-11.0 [facility] Comment on above: Performed By: #### C BC #### [facility] [address] [place] [address] Dr. Adria Amor PREG QUANT HCGon 11-08-2021 HCG QUANT <1 Normal [facility] Comment on above: Performed By: #### P REGQNT #### [facility] [address] [place] [address] Dr. Adria Amor HCG RANGE SEE BELOW Normal [facility] Comment on above: Result Comment: 5-50 0.2-1 WEEK 50-500 1-2 WEEKS 100-5,000 2-3 WEEKS 500-10,000 3-4 WEEKS 1,000-50,000 4-5 WEEKS 10,000-100,000 5-6 WEEKS 15,000-200,000 6-8 WEEKS 10,000-100,000 2-3 MONTHS Performed By: #### P REGQNT #### [facility] [address] [place] [address] Dr. Adria Amor ASYMPTOMATIC COVID-19 ANTIGE Non 10-23-2021 EUA Statement SEE BELOW Normal [facility] Comment on above: Result Comment: [...] sooner. Performed By: #### C VDAGA #### [facility] [address] [address] [address] Adria Amor SARS-CoV-2 (COVID-19) RNA CHALO+probe Ql (Unsp spec) Positive Critically abnormal NEGATIVE [facility] Comment on above: Result Comment: SARS -CoV-2 antigen present; does not rule out coinfection with other pathogens. Performed By: #### C VDAGA #### [facility] [address] [address] [address] Adria Amor Covid-19 PCR ([facility])on 10-02 SARS-CoV-2 (COVID-19) RNA CHALO+probe Ql (Unsp spec) Detected Critically abnormal NOT DETECTED [facility] Comment on above: Result Comment: This test is not yet approved or cleared by the [place] FDA. When there are no FDA-approved or cleared tests available, and other criteria are met, FDA can make tests available under an emergency access mechanism called an Emergency Use Authorization (EUA). The EUA for this test is supported by the Special Education Resource Teacher of Health and Human Service's declaration that [...] used). Performed By: #### C VDTBH #### [facility] [address] [address] [address] Adria Amor ESTRADIOLon 09-22-2021 Estradiol 66.3 pg/mL Normal [facility] Comment on above: Result Comment: Adul t Female: Follicular phase 12.5 - 166.0 Ovulation phase 85.8 - 498.0 Luteal phase 43.8 - 211.0 Postmenopausal <6.0 - 54.7 1st trimester 215.0 - >4300.0 Aniya ECLIA methodology Performed By: #### E STRAROBBIE #### [facility] [address] [place] [address] Dr. Adria Amor FSHon 09-22-2021 FSH 4.0 mIU/mL Normal [facility] Comment on above: Result Comment: Adul t Female: Follicular phase 3.5 - 12.5 Ovulation phase 4.7 - 21.5 Luteal phase 1.7 - 7.7 Postmenopausal 25.8 - 134.8 Performed By: #### 4 [id number] #### [facility] [address] [place] [address] Dr. Adria Amor LUTEINIZING HORMONE (LH)on 0 09-22-2021 LH 14.1 mIU/mL Normal [facility] Comment on above: Result Comment: Adul t Female: Follicular phase 2.4 - 12.6 Ovulation phase 14.0 - 95.6 Luteal phase 1.0 - 11.4 Postmenopausal 7.7 - 58.5 Performed By: #### L BCLH #### [facility] [address] [place] [address] Dr. Adria Amor PROGESTERONEon 09-22-2021 Progesterone 5.0 ng/mL Normal [facility] Comment on above: Result Comment: Foll icular phase 0.1 - 0.9 Luteal phase 1.8 - 23.9 Ovulation phase 0.1 - 12.0 First trimester 11.0 - 44.3 Second trimester 25.4 - 83.3 Third trimester 58.7 - 214.0 Postmenopausal 0.0 - 0.1 Performed By: #### P ROGES #### [facility] [address] [place] [address] Dr. Adria Amor TSHon 09-21-2021 TSH 1.400 uIU/mL Normal 0.358-3.740 [facility] Comment on above: Performed By: #### T SH #### [facility] [address] [place] [address] Dr. Adria Amor US PELVIS AND TRANSVAGon US PELVIS AND TRANSVAG EXAM: Pelvic ultrasound. HISTORY: . Pelvic and perineal pain . [...] by: MARY MYLES Date: 2021-09-21 08:26 Normal [facility] Encounters Encounter Date Encounter Type Care Provider Facility Start: 05-24-2022 End: 05-24-[address] GONZALES PINTO . Facility:[facility] Start: 11-17-2021 End: 11-17-[address] ESPINAL LISTED REQUEST Facility:[facility] Start: 11-13-2021 Encounter for preprocedural laboratory examination DR GONZALES PINTO . [facility] Start: 11-08-2021 End: 11-09-[address] GONZALES PINTO . Facility:[facility] Start: 11-08-2021 End: 11-09-2021 Encounter for preprocedural laboratory examination DR GONZALES PINTO . Facility:[facility] Start: 11-02-2021 Encounter for other preprocedural examination DR GONZALES PINTO . [facility] Start: 11-01-2021 End: 11-02-[address] ESPINAL LISTED REQUEST Facility:[facility] Start: 11-01-2021 End: 11-02-2021 Encounter for other preprocedural examination DR NONE LISTED REQUEST Facility: Start: 10-23-2021 End: 10-23-2021 ambulatory NONE LISTED REQUEST Facility: Start: 10-17-2021 End: 10-17-2021 ambulatory NONE LISTED REQUEST Facility: Start: 09-21-2021 End: 09-22-[address] GONZALES PINTO . Facility: Payers Date Payer Category Payer Unknown [id number] 2019 Unknown [id number] 1980 Unknown [id number] 2.16.84 [id number] 1980 Unknown [id number] 2.16.84 [id number] 1980 Unknown [id number] 2.16.84 [id number] 1980 Unknown [id number] 2.16.84 [id number] 1980 Unknown [id number] 2.16.84 [id number] 1980 Unknown [id number] 2.16.84 [id number] 1980 Unknown [id number] 2.16.84 [id number] 1957 Unknown [id number] Clinical Note 11-17-2021 Note Date & Type Note Facility 11-17-2021 Note OPERATIVE NOTE OPERATION DATE: 11/17/2021 PROCEDURE: Marva endometrial ablation, D AND C hysteroscopy, diagnostic laparoscopy, bilateral salpingectomy, right oophorectomy, fulguration of endometrial implants, lysis of adhesions. PREOPERATIVE DIAGNOSIS: Pelvis pain, menorrhagia. POSTOPERATIVE DIAGNOSIS: Pelvis pain, menorrhagia. ANESTHESIA: General. SURGEON: Gonzales Pinto D.O. LIBRARIAN HEAD: ALBERTA Bryan URINE OUTPUT: Yellow and clear. [...] and needle counts were correct x2. [facility] Summary Purpose Family History No Family History Records Found Advance Directives No Advanced Directives Records Found Additional Source Comments INFORMATION SOURCE (unrecogn ized section and content) DATE CREATED AUTHOR 06/09/2022 [facility] FOR RECORDS PERTAINING TO PATIENTS WHO [...] BE BASED ON THE PRIMARY CLINICAL RECORDS. [employer] provides no warranty or guarantee of the accuracy or completeness of information in this document.
== END 2023-03-01 11:26 | disposition home or self-care (01) ==
LOC: VC 11:25
PROVIDERS: PCP Radiology Diagnostic Radiology; Visit Provider Radiology Diagnostic Radiology
DX: I83.813 Varicose veins of bilateral lower extremities with pain (principal)
CPT/HCPCS: 36471

== ENCOUNTER 2023-05-07 10:48 | Outpatient (RCR) | payer BC, SELFPAY | END 2023-05-31 11:25 | disposition home or self-care (01) | LOC: OT 10:48 | PROVIDERS: PCP Radiology Diagnostic Radiology; Visit Provider Radiology Diagnostic Radiology | DX: I89.0 Lymphedema, not elsewhere classified (principal) | CPT/HCPCS: 97140; 97165; 97530; 97535 ==

== ENCOUNTER 2023-06-03 20:27 | Outpatient (REF) | payer BC, SELFPAY ==
--- OUTSIDE RECORDS SUMMARY | 2023-06-03 20:34 | XMS_ITS | CCD ---
Author Organization [facility] Care Team Providers Care Nuclear Weapons Specialist Name Role Phone REQUEST, DR TEDDY LISTED [...] Unavailable JARED ., DR ROLON Consulting Unavailable Brown, Mary Consulting Unavailable JARED ., DR ROLON Admitting Unavailable JARED ., DR ROLON Consulting Unavailable JARED ., DR ROLON Attending Unavailable REQUEST, DR ESPINAL LISTED Primary Care Unavaila ble REQUEST, DR ESPINAL LISTED Attending Unavaila ble JUNAID, RICK Consulting Unavailable REQUEST, DR ESPINAL LISTED Admitting Unavaila ble REQUEST, NONE LISTED Primary Care Unavaila ble REQUEST, NONE LISTED Primary Care Unavaila ble JUNAID, RICK Consulting Unavailable JUNAID, RICK Attending Unavailable JUNAID, RICK Admitting Unavailable Problems Active Problems Problem Classification Problem Date Documented Date Episodic/Chronic Menopausal disorders (5 sources) Unspecified menopausal and perimenopausal disorder; Translations: [UNS MENOPAUSAL PERIMENOPAUSAL D/O] Onset: 09-21-2021 Chronic Menstrual disorders (1 source) Excessive and frequent menstruation with regular cycle; Translations: [EXCESS FREQ MENSTRUATION W/REG CYCL] Onset: 11-29-2021 Chronic Other screening for suspected conditions (not [...] to 67on 05-31-2022 . . Normal [facility] Comment on above: Result Comment: Perf ormed at: WB Performed By: #### [id number] #### [facility] [address] [place] [address] Dr. Adria Amor Age Gdln ACOG Testing 30-65 Normal [facility] [place] Comment on above: Performed By: #### [id number] #### [facility] [address] [address] [address] Adria Amor DIAGNOSIS: Comment Normal [facility] [place] Comment on above: Result Comment: NEGA TIVE FOR INTRAEPITHELIAL LESION OR MALIGNANCY. Performed at: WB Performed By: #### [id number] #### [facility] [address] [address] [address] Adria Amor HPV Aptima Negative Normal Negative [facility] [place] Comment on above: Result Comment: This nucleic acid amplification test detects fourteen high-risk HPV types (16,18,31,33,35,39,45,51,52,56,58,59,66,68) without differentiation. Performed at: =G Performed By: #### 4 [id number] #### [facility] [address] [place] [address] Dr. Adria Amor HPV Genotype Reflex Comment Normal [facility] Comment on above: Result Comment: Crit eria not met, HPV Genotype not performed. Performed at: WB Performed By: #### 4 [id number] #### [facility] [address] [place] [address] Dr. Adria Amor Methodology: Comment Normal [facility] [place] Comment on above: Result Comment: This liquid based ThinPrep(R) pap test was screened with the use of an image guided system. Performed at: WB Performed By: #### [id number] #### [facility] [address] [place] [address] Dr. Adria Amor Note: Comment Normal [facility] [place] Comment on above: Result Comment: The Pap smear is a screening test designed to aid in the detection of premalignant and malignant conditions of the uterine cervix. It is not a diagnostic procedure and should not be used as the sole means of detecting cervical cancer. Both false-positive and false-negative reports do occur. . Performed at: WB Performed By: #### [id number] #### [facility] [address] [place] [address] Dr. Adria Amor Performed by: Comment Normal [facility] Comment on above: Result Comment: William Pineda, Outside Deliverer (ASCP) Performed at: WB Performed By: #### [id number] #### [facility] [address] [place] [address] Dr. Adria Amor Specimen adequacy: Comment Normal [facility] Comment on above: Result Comment: Sati sfactory for evaluation. Endocervical and/or squamous metaplastic cells (endocervical component) are present. Performed at: WB Performed By: #### 4 [id number] #### [facility] [address] [place] [address] Dr. Adria Amor CBC AUTO DIFFon 11-17-2021 BASO # 0.0 103/ul Normal 0.0-0.1 [facility] [place] Comment on above: Performed By: #### [id number] #### [facility] [address] [place] [address] Dr. Adria Amor Basophils/100 WBC (Bld) 0.6 % Normal 0.2-2.0 [facility] [place] Comment on above: Performed By: #### 4 [id number] #### [facility] [address] [place] [address] Dr. Adria Amor EO # 0.3 103/ul Normal 0.0-0.7 [facility] [place] Comment on above: Performed By: #### 4 [id number] #### [facility] [address] [place] [address] Dr. Adria Amor Eosinophils/100 WBC (Bld) 4.0 % Normal 0.9-7.0 [facility] [place] Comment on above: Performed By: #### 4 [id number] #### [facility] [address] [place] [address] Dr. Adria Amor Erythrocyte distribution width (RBC) [Ratio] 12.2 % Normal 11.0-15.0 [facility] [place] Comment on above: Performed By: #### 4 [id number] #### [facility] [address] [place] [address] Dr. Adria Amor Hematocrit (Bld) [Volume fraction] 39.3 % Normal 36.0-48.0 [facility] [place] Comment on above: Performed By: #### 4 [id number] #### [facility] [address] [place] [address] Dr. Adria Amor Hemoglobin (Bld) [Mass/Vol] 13.7 g/dL Normal 12.0-16.0 [facility] [place] Comment on above: Performed By: #### 4 [id number] #### [facility] [address] [place] [address] Dr. Adria Amor IG # 0.01 10e3/ul Normal 0.00-0.03 [facility] Comment on above: Performed By: #### 4 [id number] #### [facility] [address] [address] [address] Adria Amor IG % 0.2 % Normal 0.0-0.5 [facility] [place] Comment on above: Performed By: #### 4 [id number] #### [facility] [address] [address] [address] Adria Amor LYMPH # 1.9 103/ul Normal 1.2-3.8 [facility] [place] Comment on above: Performed By: #### 4 [id number] #### [facility] [address] [place] [address] Dr. Adria Amor Lymphocytes/100 WBC (Bld) 28.9 % Normal 20.5-60.0 [facility] [place] Comment on above: Performed By: #### 4 [id number] #### [facility] [address] [place] [address] Dr. Adria Amor MANUAL DIFF REQ NO Normal [facility] Comment on above: Performed By: #### 4 [id number] #### [facility] [address] [address] [address] Adria Amor MCH (RBC) [Entitic mass] 32.4 pg Normal 26.7-34.0 [facility] [place] Comment on above: Performed By: #### 4 [id number] #### [facility] [address] [address] [address] Adria Amor MCHC (RBC) [Mass/Vol] 34.9 g/dL Normal 29.9-35.2 [facility] [place] Comment on above: Performed By: #### 4 [id number] #### [facility] [address] [address] [address] Adria Amor MCV (RBC) [Entitic vol] 92.9 fL Normal 81.0-99.0 [facility] [place] Comment on above: Performed By: #### 4 [id number] #### [facility] [address] [address] [address] Adria Amor MONO # 0.5 103/ul Normal 0.3-0.8 [facility] [place] Comment on above: Performed By: #### 4 [id number] #### [facility] [address] [place] [address] Dr. Adria Amor Monocytes/100 WBC (Bld) 7.4 % Normal 1.7-12.0 [facility] [place] Comment on above: Performed By: #### 4 [id number] #### [facility] [address] [place] [address] Dr. Adria Amor NEUT # 3.8 103/ul Normal 1.4-6.5 [facility] [place] Comment on above: Performed By: #### 4 [id number] #### [facility] [address] [place] [address] Dr. Adria Amor Neutrophils/100 WBC (Bld) 58.9 % Normal 43.0-75.0 [facility] [place] Comment on above: Performed By: #### 4 [id number] #### [facility] [address] [place] [address] Dr. Adria Amor Platelet mean volume (Bld) [Entitic vol] 9.7 fL Normal 9.5-13.5 [facility] [place] Comment on above: Performed By: #### 4 [id number] #### [facility] [address] [place] [address] Dr. Adria Amor PLT 185 103/ul Normal 150-450 [facility] [place] Comment on above: Performed By: #### 4 [id number] #### [facility] [address] [place] [address] Dr. Adria Amor RBC 4.23 106/ul Normal 4.20-5.40 [facility] Comment on above: Performed By: #### 4 [id number] #### [facility] [address] [place] [address] Dr. Adria Amor WBC 6.5 103/ul Normal 4.0-11.0 [facility] Comment on above: Performed By: #### 4 [id number] #### [facility] [address] [place] [address] Dr. Adria Amor CYTOLOGYon 11-17-2021 SENT TO REF LAB 11/17/2021 Normal [facility] Comment on above: Performed By: #### C YTO #### [facility] [address] [place] [address] Dr. Adria Amor PREG QUANT HCGon 11-17-2021 HCG QUANT 1 mIU/mL Normal [facility] Comment on above: Performed By: #### 4 [id number] #### [facility] [address] [place] [address] Dr. Adria Amor HCG RANGE SEE BELOW Normal [facility] [place] Comment on above: Result Comment: 5-50 0.2-1 WEEK 50-500 1-2 WEEKS 100-5,000 2-3 WEEKS 500-10,000 3-4 WEEKS 1,000-50,000 4-5 WEEKS 10,000-100,000 5-6 WEEKS 15,000-200,000 6-8 WEEKS 10,000-100,000 2-3 MONTHS Performed By: #### 4 [id number] #### [facility] [address] [place] [address] Dr. Adria Amor CBC AUTO DIFFon 11-08-2021 BASO # 0.1 103/ul Normal 0.0-0.1 [facility] [place] Comment on above: Performed By: #### C BC #### [facility] [address] [place] [address] Dr. Adria mAor Basophils/100 WBC (Bld) 0.7 % Normal 0.2-2.0 [facility] [place] Comment on above: Performed By: #### C BC #### [facility] [address] [place] [address] Dr. Adria Amor EO # 0.3 103/ul Normal 0.0-0.7 [facility] [place] Comment on above: Performed By: #### C BC #### [facility] [address] [place] [address] Dr. Adria Amor Eosinophils/100 WBC (Bld) 3.4 % Normal 0.9-7.0 [facility] [place] Comment on above: Performed By: #### C BC #### [facility] [address] [place] [address] Dr. Adria Amor Erythrocyte distribution width (RBC) [Ratio] 11.9 % Normal 11.0-15.0 [facility] [place] Comment on above: Performed By: #### C BC #### [facility] [address] [place] [address] Dr. Adria Amor Hematocrit (Bld) [Volume fraction] 40.2 % Normal 36.0-48.0 [facility] [place] Comment on above: Performed By: #### C BC #### [facility] [address] [place] [address] Dr. Adria Amor Hemoglobin (Bld) [Mass/Vol] 13.7 g/dL Normal 12.0-16.0 [facility] [place] Comment on above: Performed By: #### C BC #### [facility] [address] [place] [address] Dr. Adria Amor IG # 0.02 10e3/ul Normal 0.00-0.03 [facility] [place] Comment on above: Performed By: #### C BC #### [facility] [address] [place] [address] Dr. Adria Amor IG % 0.2 % Normal 0.0-0.5 [facility] [place] Comment on above: Performed By: #### C BC #### [facility] [address] [place] [address] Dr. Adria Amor LYMPH # 2.9 103/ul Normal 1.2-3.8 [facility] [place] Comment on above: Performed By: #### C BC #### [facility] [address] [place] [address] Dr. Adria Amor Lymphocytes/100 WBC (Bld) 35.1 % Normal 20.5-60.0 [facility] [place] Comment on above: Performed By: #### C BC #### [facility] [address] [place] [address] Dr. Adria Amor MANUAL DIFF REQ NO Normal [facility] Comment on above: Performed By: #### C BC #### [facility] [address] [place] [address] Dr. Adria Amor MCH (RBC) [Entitic mass] 31.8 pg Normal 26.7-34.0 [facility] [place] Comment on above: Performed By: #### C BC #### [facility] [address] [address] [address] Adria Amor MCHC (RBC) [Mass/Vol] 34.1 g/dL Normal 29.9-35.2 [facility] [place] Comment on above: Performed By: #### C BC #### [facility] [address] [address] [address] Adria Amor MCV (RBC) [Entitic vol] 93.3 fL Normal 81.0-99.0 [facility] [place] Comment on above: Performed By: #### C BC #### [facility] [address] [place] [address] Dr. Adria Amor MONO # 0.7 103/ul Normal 0.3-0.8 [facility] [place] Comment on above: Performed By: #### C BC #### [facility] [address] [place] [address] Dr. Adria Amor Monocytes/100 WBC (Bld) 8.2 % Normal 1.7-12.0 [facility] [place] Comment on above: Performed By: #### C BC #### [facility] [address] [place] [address] Dr. Adria Amor NEUT # 4.3 103/ul Normal 1.4-6.5 [facility] [place] Comment on above: Performed By: #### C BC #### [facility] [address] [place] [address] Dr. Adria Amor Neutrophils/100 WBC (Bld) 52.4 % Normal 43.0-75.0 [facility] Comment on above: Performed By: #### C BC #### [facility] [address] [place] [address] Dr. Adria Amor Platelet mean volume (Bld) [Entitic vol] 10.3 fL Normal 9.5-13.5 [facility] [place] Comment on above: Performed By: #### C BC #### [facility] [address] [place] [address] Dr. Adria Amor PLT 256 103/ul Normal 150-450 [facility] Comment on above: Performed By: #### C BC #### [facility] [address] [place] [address] Dr. Adria Amor RBC 4.31 106/ul Normal 4.20-5.40 [facility] [place] Comment on above: Performed By: #### C BC #### [facility] [address] [place] [address] Dr. Adria Amor WBC 8.2 103/ul Normal 4.0-11.0 [facility] [place] Comment on above: Performed By: #### C BC #### [facility] [address] [place] [address] Dr. Adria Amor PREG QUANT HCGon 11-08-2021 HCG QUANT <1 Normal [facility] [place] Comment on above: Performed By: #### P REGQNT #### [facility] [address] [place] [address] Dr. Adria Amor HCG RANGE SEE BELOW Normal [facility] [place] Comment on above: Result Comment: 5-50 0.2-1 WEEK 50-500 1-2 WEEKS 100-5,000 2-3 WEEKS 500-10,000 3-4 WEEKS 1,000-50,000 4-5 WEEKS 10,000-100,000 5-6 WEEKS 15,000-200,000 6-8 WEEKS 10,000-100,000 2-3 MONTHS Performed By: #### P REGQNT #### [facility] [address] [place] [address] Dr. Adria Amor ASYMPTOMATIC COVID-19 ANTIGE Non 10-23-2021 EUA Statement SEE BELOW Normal [facility] Comment on above: Result [...] sooner. Performed By: #### C VDAGA #### [facility] [address], [place] [address] Dr. Adria Amor SARS-CoV-2 (COVID-19) RNA CHALO+probe Ql (Unsp spec) Positive Critically abnormal NEGATIVE [facility] Comment on above: Result Comment: SARS -CoV-2 antigen present; does not rule out coinfection with other pathogens. Performed By: #### C VDAGA #### [facility] [address], [place] [address] Dr. Adria Amor Covid-19 PCR ([facility])on 10-02 SARS-CoV-2 (COVID-19) RNA CHALO+probe Ql (Unsp spec) Detected Critically abnormal NOT DETECTED [facility] Comment on above: Result Comment: This test is not yet approved or cleared by the [place] FDA. When there are no FDA-approved or cleared tests available, and other criteria are met, FDA can make tests available under an emergency access mechanism called an Emergency Use Authorization (EUA). The EUA for this test is supported by the [place] of Health and Human Service's declaration that [...] used). Performed By: #### C VDTBH #### [facility] [address], [place] [address] Dr. Adria Amor ESTRADIOLon 09-22-2021 Estradiol 66.3 pg/mL Normal [facility] Comment on above: Result Comment: Adul t Female: Follicular phase 12.5 - 166.0 Ovulation phase 85.8 - 498.0 Luteal phase 43.8 - 211.0 Postmenopausal <6.0 - 54.7 1st trimester 215.0 - >4300.0 Aniya ECLIA methodology Performed By: #### E STRADI #### [facility] [address] [place] [address] Dr. Adria Amor FSHon 09-22-2021 FSH 4.0 mIU/mL Normal [facility] [place] Comment on above: Result Comment: Adul t Female: Follicular phase 3.5 - 12.5 Ovulation phase 4.7 - 21.5 Luteal phase 1.7 - 7.7 Postmenopausal 25.8 - 134.8 Performed By: #### 4 [id number] #### [facility] [address] [place] [address] Dr. Adria Amor LUTEINIZING HORMONE (LH)on 0 09-22-2021 LH 14.1 mIU/mL Normal [facility] [place] Comment on above: Result Comment: Adul t Female: Follicular phase 2.4 - 12.6 Ovulation phase 14.0 - 95.6 Luteal phase 1.0 - 11.4 Postmenopausal 7.7 - 58.5 Performed By: #### L BCLH #### [facility] [address] [place] [address] Dr. Adria Amor PROGESTERONEon 09-22-2021 Progesterone 5.0 ng/mL Normal [facility] [place] Comment on above: Result Comment: Foll icular phase 0.1 - 0.9 Luteal phase 1.8 - 23.9 Ovulation phase 0.1 - 12.0 First trimester 11.0 - 44.3 Second trimester 25.4 - 83.3 Third trimester 58.7 - 214.0 Postmenopausal 0.0 - 0.1 Performed By: #### P ROGES #### [facility] [address] [place] [address] Dr. Adria Amor TSHon 09-21-2021 TSH 1.400 uIU/mL Normal 0.358-3.740 [facility] Comment on above: Performed By: #### T SH #### [facility] [address] [place] [address] Dr. Adria Amor US PELVIS AND TRANSVAGon [...] size and/or resolution. Electronically authenticated by: MARY CHAMPAGNE Date: 2021-09-21 08:26 Normal [facility] Encounters Encounter Date Encounter Type Care Provider Facility Start: 05-24-2022 End: 05-24-[address] GONZALES PINTO . Facility:[facility] Start: 11-17-2021 End: 11-17-2021 ambulatory NONE LISTED REQUEST Facility:[facility] Start: 11-13-2021 Encounter for preprocedural laboratory examination DR GONZALES PINTO . [facility] Start: 11-08-2021 End: 11-09-[address] GONZALES PINTO . Facility:[facility] Start: 11-08-2021 End: 11-09-2021 Encounter for preprocedural laboratory examination DR GONZALES PINTO . Facility:[facility] Start: 11-02-2021 Encounter for other preprocedural examination DR GONZALES PINTO . [facility] Start: 11-01-2021 End: 11-02-[address] NONE LISTED REQUEST Facility:[facility] Start: 11-01-2021 End: 11-02-2021 Encounter for other preprocedural examination DR NONE LISTED REQUEST Facility:[facility] Start: 10-23-2021 End: 10-23-[address] NONE LISTED REQUEST Facility: Start: 10-17-2021 End: 10-17-2021 ambulatory NONE LISTED REQUEST Facility: Start: 09-21-2021 End: 09-22-[address] GONZALES PINTO . Facility: Payers Date Payer Category Payer Unknown [id number] 2019 Unknown [id number] 1980 Unknown [id number] 2.16.84 [id number] 1982 Unknown [id number] 2.16.84 [id number] 1982 Unknown [id number] 2.16.84 [id number] 1982 Unknown [id number] 2.16.84 [id number] 1982 Unknown [id number] 2.16.84 [id number] 1982 Unknown [id number] 2.16.84 [id number] 1982 Unknown [id number] 2.16.84 [id number] 1959 Unknown [id number] Clinical Note 11-17-2021 Note Date & Type Note Facility 11-17-2021 Note OPERATIVE NOTE OPERATION DATE: 11/17/2021 PROCEDURE: Marva endometrial ablation, D AND C hysteroscopy, diagnostic laparoscopy, bilateral salpingectomy, right oophorectomy, fulguration of endometrial implants, lysis of adhesions. PREOPERATIVE DIAGNOSIS: Pelvis pain, menorrhagia. POSTOPERATIVE DIAGNOSIS: Pelvis pain, menorrhagia. ANESTHESIA: General. SURGEON: Gonzales Pinto D.O. CHAIN PULLER: ALBERTA Bryan URINE OUTPUT: Yellow and clear. [...] and needle counts were correct x2. [facility] Summary Purpose Family History No Family History Records Found Advance Directives No Advanced Directives Records Found Additional Source Comments INFORMATION SOURCE (unrecogn ized section and content) DATE CREATED AUTHOR 06/09/2022 [facility] FOR RECORDS PERTAINING TO PATIENTS WHO ARE [...] BE BASED ON THE PRIMARY CLINICAL RECORDS. [employer] provides no warranty or guarantee of the accuracy or completeness of information in this document.
[2023-06-07 17:09] LABS: Age Gdln ACOG Testing Note (.); HPV Aptima Negative (Negative); IGP, Aptima HPV, rfx 16/18,45 Note (.)
== END 2023-06-03 20:28 | disposition home or self-care (01) ==
LOC: LAB 20:27
PROVIDERS: PCP Radiology Diagnostic Radiology; Visit Provider Obstetrics & Gynecology
DX: Z01.419 Encounter for gynecological examination (general) (routine) without abnormal findings (principal)
CPT/HCPCS: 87624; G0145

== ENCOUNTER 2023-06-18 11:22 | Outpatient (OUT) | payer BC, SELFPAY ==
--- NOTE | 2023-06-18 11:25 | MM_ITS ---
Patient Name: MICHELLE ZEPEDA MR#: [id number] : 1980 Exam Date: 06/18/2023 Ordering Doctor: DR Pete Pinto . RADIOLOGY REPORT PROCEDURE: MM TOMOSYNTHESIS SCREENING BI COMPARISON: None. INDICATIONS: screening Calculator Name NCI Breast Cancer Risk Assessment Tool 5 Year Breast Cancer Risk 0.50% Lifetime Breast Cancer Risk 9.00% Personal Breast Cancer No Personal Ovarian Cancer No Treatments None Family Cancers None LOCATION: [facility] BREAST COMPOSITION: Extremely dense, which lowers the sensitivity of mammography. FINDINGS: DIAGNOSTIC CATEGORY 0--INCOMPLETE: NEED ADDITIONAL IMAGING EVALUATION. RIGHT BREAST: No significant suspicious finding. LEFT BREAST: Lobular retroareolar nodule measuring 6.2 x 8.8 mm best seen on the tomographic image number 30. Ultrasound follow-up recommended. RECOMMENDATIONS: ULTRASOUND: LEFT BREAST PLEASE NOTE: A NORMAL MAMMOGRAM DOES NOT EXCLUDE THE POSSIBILITY OF BREAST CANCER. A CLINICALLY SUSPICIOUS PALPABLE LUMP SHOULD BE BIOPSIED. Dictated by: Doug Merchant MD on 06/18/2023 at 12:01 Approved by: Doug Merchant MD on 06/18/2023 at 12:05
== END 2023-06-18 11:23 | disposition home or self-care (01) ==
LOC: MAMMO 11:22
PROVIDERS: PCP Family Medicine; Visit Provider Obstetrics & Gynecology
DX: Z12.31 Encounter for screening mammogram for malignant neoplasm of breast (principal); N63.42 Unspecified lump in left breast, subareolar
CPT/HCPCS: 77063; 77067

== ENCOUNTER 2024-11-24 19:44 | Outpatient (REF) | payer BC, SELFPAY ==
--- OUTSIDE RECORDS SUMMARY | 2024-11-24 19:50 | XMS_ITS | CCD ---
Author Organization [facility] Care Team Providers [place] [facility] Coordinator Name Role Phone REQUEST, DR NONE LISTED Primary Care Unavaila ble JARED ., DR ROLON Admitting Unavailable JARED ., DR ROLON Attending Unavailable JARED ., DR ROLON Admitting Unavailable JARED ., DR ROLON Consulting Unavailable JARED ., DR ROLON Attending Unavailable REQUEST, NONE LISTED Primary Care Unavaila ble REQUEST, DR ESPINAL LISTED Primary Care Unavaila ble JARED ., DR ROLON Admitting Unavailable JARED ., DR ROLON Consulting Unavailable JARED ., DR ROLON Attending Unavailable LORRI CARRILLO Consulting Unavailable KARLEEYIN SIDHU Consulting Unava ilable JARED ., DR ROLON Attending Unavailable JARED ., DR ROLON Admitting Unavailable JARED ., DR ROLON Consulting Unavailable Mary Myles Consulting Unavailable JARED ., DR ROLON Admitting Unavailable JARED ., DR ROLON Consulting Unavailable JARED ., DR ROLON Attending Unavailable REQUEST, NONE LISTED Primary Care Unavaila ble REQUEST, DR ESPINAL LISTED Attending Unavaila ble RICK QUIROGA Consulting Unavailable REQUEST, NONE LISTED Admitting Unavaila ble REQUEST, NONE LISTED Primary Care Unavaila ble REQUEST, NONE LISTED Primary Care Unavaila ble JUNAID, RICK Consulting Unavailable RICK QUIROGA Attending Unavailable RICK QUIROGA Admitting Unavailable JAREDGONZALES Attending Unavailable WINDY CRUZ Attending Unavailable JAREDGONZALES Attending Unavailable JAREDGONZALES Dougherty Attending Unavailable Jaycob Weber Primary Care Physician [phone] Jaycob Weber Attending Unavailable Gus, Jaycob Blake Attending Unavailable Jaycob Weber Attending Unavailable Lorena Gardner MD Primary Care Provider [phone] Medications Current Medications Medication Drug Class(es) Dates Sig (Normalized) Sig (Original) metFORMIN hydrochloride 500 mg oral tablet (2 sources) Biguanide Start: 07-03-2024 End: 07-03-2025 take 1 tablet by mouth at mealtime metFORMIN (Glucophage) 500 MG tablet Indications: Weight gain TAKE 1 TABLET (500 MG) BY MOUTH IN THE MORNING. TAKE WITH MEALS. 90 tablet 07/03/2024 11/24/2024 Discontinued phentermine hydrochloride 37.5 mg oral tablet (4 sources) Sympathomimetic Amine Anorectic Start: 07-30-2023 End: 11-24-2024 take 1 tablet by mouth before mealtime phentermine (Adipex-P) 37.5 MG tablet Indications: Encounter for weight management Take 1 tablet (37.5 mg) by mouth in the morning. Take before meals. 90 tablet 08/27/2023 11/24/2024 Discontinued sertraline 50 mg oral tablet (2 sources) Serotonin Reuptake Inhibitor Start: 11-19-2024 take 1 tablet by mouth once daily sertraline 50 mg Tab 50 mg = 1 tab(s), Oral, Daily, # 30 tab(s), Refills(s) 1, Pharmacy: [facility]/pharmacy #[id number], 163.2, cm, 11/19/24 15:06:00 EDT, Height/Length Dosing, 82.1, kg, 11/19/24 15:06:00 EDT, Weight Dosing Start Date: 11/19/24 Status: Ordered Quantity: 30.0 Unit: tab(s) Repeat number: 2 Problems Active Problems Problem Classification Problem Date Documented Date Episodic/Chronic Anxiety disorders (1 source) Generalized anxiety disorder; Translations: [Generalized anxiety disorder] Onset: 11-19-2024 Chronic Menopausal disorders (5 sources) Unspecified menopausal and perimenopausal disorder; Translations: [UNS MENOPAUSAL PERIMENOPAUSAL D/O] Onset: 09-21-2021 Chronic Menstrual disorders (5 sources) Excessive and frequent menstruation with regular cycle; Translations: [Dysmenorrhea] Onset: 11-29-2021 10-09-2022 Chronic Other female genital disorders (2 sources) Dyspareunia; Translations: [Unspecified dyspareunia] Onset: 10-09-2022 10-09-2022 Chronic Other nutritional; endocrine; and metabolic disorders (1 source) Obese class I; Translations: [Body mass index (BMI) 30.0-30.9, adult] Onset: 11-19-2024 Chronic Other screening for suspected conditions (not mental disorders or infectious disease) (4 sources) Encounter for screening for malignant neoplasm of cervix; Translations: [ENC SCREENING MALIG NEOPLASM CERV] Onset: 05-24-2022 Episodic Residual codes; unclassified (1 source) Patient encounter status; Translations: [Other specified health status] Onset: 11-19-2024 Episodic Unclassified (1 source) PERSONAL HISTORY OF [...] [CONTACT W/AND (SUSP) EXPOS COVID-19] Onset: 10-23-2021 Unclassified (3 sources) Onset: 07-02-2004 Resolved: 01-10-2015 01-12-2015 Results Test Name Value Interpretation Reference Range Facility Ambulatory Visit Summaryon 0 11-19-2024 Ambulatory Visit Summary Ambulatory Visit Summary MICHELLE BUTT :1980 Visit Date:11/19/2024 Ambulatory Visit Instructions Your Diagnosis Adult general medical exam BMI 30.0-30.9,adult Non-smoker Generalized anxiety disorder Your Care Team Attending Physician - Jaycob Weber DO Primary Care Physician - Jaycob Weber DO This Is Your Medications List sertraline (sertraline 50 mg Tab) Procedures Performed Partial hysterectomy (11/2022), Ultrasound guided transcervical radiofrequency ablation of uterine fibroid (2021). Discharge Vitals Heart Rate (Peripheral) 100 Respiratory Rate 18 Blood Pressure 128/86 Height 163.2 cm Height 64 in Weight 82.1 kg Weight 180.999 lb BMI 30.82 What to do next Scheduled Follow-Up Appointments Saturday 8:00 AM EDT With: Where: [facility] [address] [place] [address]- 2024 4:00 PM EDT With: Jaycob Weber DO Where: [address] [address]- You Need to Schedule the Following Appointments Follow Up with Jaycob Weber DO, FAM When: Within 1 year Comments: 1 YEAR - ANNUAL PHYSICAL Where: [address] [address]- Follow Up with Jaycob Weber DO, FAM When: Within 4 weeks Comments: 4 WEEKS FOLLOWUP Where: [address] [address]- You Need to Complete the Following CBC w/ Auto Diff, Blood, Routine collect, 11/19/24, Order for future visit, Lab Collect, Adult general medical exam, Print Label By Order Location Comprehensive Metabolic Panel, Blood, Routine collect, 11/19/24, Order for future visit, Lab Collect, Adult general medical exam, Print Label By Order Location Lipid Panel, Blood, Routine collect, 11/19/24, Order for future visit, Lab Collect, Adult general medical exam, Print Label By Order Location TSH With T4fr Reflex, Blood, Routine collect, 11/19/24, Order for future visit, Lab Collect, Adult general medical exam, Print Label By Order Location Medications What How Much When Instructions New sertraline (sertraline 50 mg Tab) 1 Tablets By Mouth Every day Refills: 1 Pickup at [id number] Pharmacy Information [id number]: [address] [place], [place] [phone] Allergies No Known Allergies Problems Historical - Any problem that you are no longer receiving treatment for. Patient Survey You may receive a survey via text or e-mail asking about your office visit. Please share your experience with us by completing your survey. We appreciate your feedback and thank you for choosing us for your care. Patient Portal You may access all of your results and other medical record information on our secure patient portal. If you are not signed up for this yet, please contact [employer] at [phone] to get signed up today. Language Information Language assistance services are available as needed. Normal [facility] Family Medicine Office/Clini c Noteon 11-19-2024 Family Medicine Office/Clinic Note Family Medicine Office/Clinic Note Chief Complaint Establish Care HPI Staff Patient here to Establish Care Establish Care: History: Any previous diagnosis: Social Anxiety Disorder History of seeing any specialist: Dr. Guanako Singh ([employer], Therapist) weekly When was your last doctors visit: 3 years Last provider: Dr. Gardner Any recent labs: no Health Maintenance UTD: Mammogram: Patient has an appointment with August Gomez, next week will get order then. Pelvic/Pap: Hx Hysterectomy Acute: Current issues/complaints: Patient would like to discuss anxiety medication and lump in right axillary ( it's been there for awhile, probably more than a year ). Declines an pain with lump, noting it's just annoying . History of Present Illness Care History Patient last PCP was: Lorena Gardner [facility] Patient states she has no longstanding health concerns. Social Patient is a 44-year-old female Patient is currently Patient has no smoking history. Patient has no use of marijuana. Patient has never abused drugs or prescriptions. Patient has social alcohol use without abuse. Preventative Care Last physical - Due Last Labs - Due Last Pap - hysterectomy - 2022 Last Mammogram - Dr. Pinto Today, patient states that she has been diagnosed with social anxiety disorder. She states that this is with any public exposure. She has a little generalized anxiety. She states that she can still function, but it is impacting her ability to function at this time, affecting her decision making about going out in public. She also has a skin site to check. She states it is not irritated, does not feel off, it is on her right posterior axillary fold. She denies any changes over time with this site, has noted it for a couple years. Review of Systems PHQ Score Initial Depression Screen Score: 0 SCORE ROS - Provider Constitutional: no fever, no chills Skin: no rash, no lesions ENMT: no ear pain, no sore throat, no congestion, no hoarseness. Respiratory: no shortness of breath, no cough, no wheezing. Cardiovascular: no chest pain, no palpitations, no edema. Gastrointestinal: no nausea, no vomiting, no diarrhea, Musculoskeletal: no back pain, no trauma. Neurologic: no headache, no dizziness, no numbness, no weakness. Psychiatric: no sleeping problems, no irritability, no mood swings/depression. Physical Exam Vitals & Measurements HR: 100(Peripheral) RR: 18 BP: 128/86 SpO2: 97% HT: 64 in HT: 163.2 cm WT: 180.999 lb WT: 82.1 kg BMI: 30.82 General: Well developed, well nourished, in no acute distress Head: Normocephalic/atrauma tic Eyes: Pupils equal, round, and reactive to light. Sclerae normal, and extraocular movements intact Lungs: Normal respiratory effort and clear to auscultation Cardio: Regular rate and rhythm, normal S1 and S2, no murmur, no rub Musculoskeletal: No deformity or scoliosis noted. Normal range of motion. Joints normal. No erythema, edema, effusion, or ecchymosis Extremity: No clubbing, cyanosis, edema, or deformity, with normal ROM in both upper and lower bilateral extremities Neurologic: Grossly normal Skin: No rash, petechiae, suspicious lesions Mental Status: Alert and oriented x3. Normal mood and affect Assessment/Plan 1. Adult general medical exam (Z00.00: Encounter for general adult medical examination without abnormal findings) Patient is well. Will order annual labs. Mammogram through [employer]. No concerns. Recheck in 1 year. Ordered: CBC w/ Auto Diff Comprehensive Metabolic Panel Lipid Panel New Preventive 40 to 64 years [address] TSH With T4fr Reflex 2. BMI 30.0-30.9,adult (Z68.30: Body mass index [BMI] 30.0-30.9, adult) The standard range for ages 18 and older is >=18.5 and < 25 kg/m2. Your BMI today was above this range, this falls in the overweight to obese category and there are medical benefits to weight loss. We can offer counselling, referral, and/or medical support in addressing this problem. Your BMI and weight management will be followed at subsequent visits. Ordered: New Preventive 40 to 64 years [address] 3. Non-smoker (Z78.9: Other specified health status) Stable. Ordered: New Preventive 40 to 64 years [address] 4. Generalized anxiety disorder (F41.1: Generalized anxiety disorder) Discussed anxiety today. Agree she has symptoms of CHARLES, borders on agoraphobia. We discussed options, she has no exposure to psychotropics she relates to. We will cover today with sertraline today at 50mg. Discussed side effects, she will call with any concerns. Recheck in 4 weeks. Patient to call with any new findings of depression, SI. Ordered: New Preventive 40 to 64 years [address] Orders: sertraline, 50 mg = 1 tab(s), Oral, Daily, # 30 tab(s), Refills(s) 1, Pharmacy: [facility]/pharmacy #[id number], 163.2, cm, 11/19/24 15:06:00 EDT, Height/Length Dosing, 82.1, kg, 11/19/24 15:06:00 EDT, Weight Dosing Follow-up With When Contact Information Jaycob Weber DO, FAM Withi (more content not included)... Normal [facility] Comment on above: Result Comment: Elec tronically Signed By: Jacyob Weber DO\.br\Date and Time Signed: 11/19/24 15:40 EDT PAP ACOG PANEL 2: 30 to 65on 05-31-2022 . . Normal [facility] Comment on above: Result Comment: Perf ormed at: WB Performed By: #### [id number] #### [facility] [address] [address] [address] Adria Amor Age Gdln ACOG Testing 30-65 [facility] Comment on above: Performed By: #### 4 [id number] #### [facility] [address] [address] [address] Adria Amor DIAGNOSIS: Comment [facility] Comment on above: Result Comment: NEGA TIVE FOR INTRAEPITHELIAL LESION OR MALIGNANCY. Performed at: WB Performed By: #### 4 [id number] #### [facility] [address] [place] [address] Dr. Adria Amor HPV Aptima Negative Normal Negative [facility] Comment on above: Result Comment: This nucleic acid amplification test detects fourteen high-risk HPV types (16,18,31,33,35,39,45,51,52,56,58,59,66,68) without differentiation. Performed at: =G Performed By: #### [id number] #### [facility] [address] [place] [address] Dr. Adria Amor HPV Genotype Reflex Comment Normal [facility] Comment on above: Result Comment: Crit eria not met, HPV Genotype not performed. Performed at: WB Performed By: #### 4 [id number] #### [facility] [address] [place] [address] Dr. Adria Amor Methodology: Comment Normal [facility] Comment on above: Result Comment: This liquid based ThinPrep(R) pap test was screened with the use of an image guided system. Performed at: WB Performed By: #### 4 [id number] #### [facility] [address] [place] [address] Dr. Adria Amor Note: Comment Normal [facility] Comment on above: Result Comment: The Pap smear is a screening test designed to aid in the detection of premalignant and malignant conditions of the uterine cervix. It is not a diagnostic procedure and should not be used as the sole means of detecting cervical cancer. Both false-positive and false-negative reports do occur. . Performed at: WB Performed By: #### [id number] #### [facility] [address] [place] [address] Dr. Adria Amor Performed by: Comment Normal [facility] Comment on above: Result Comment: William Pineda, [employer] Draftsperson (ASCP) Performed at: WB Performed By: #### 4 [id number] #### [facility] [address] [place] [address] Dr. Adria Amor Specimen adequacy: Comment Normal [facility] Comment on above: Result Comment: Sati sfactory for evaluation. Endocervical and/or squamous metaplastic cells (endocervical component) are present. Performed at: WB Performed By: #### 4 [id number] #### [facility] [address] [place] [address] Dr. Adria Amor CBC AUTO DIFFon 11-17-2021 BASO # 0.0 103/ul Normal 0.0-0.1 [facility] Comment on above: Performed By: #### 4 [id number] #### [facility] [address] [place] [address] Dr. Adria Amor Basophils/100 WBC (Bld) 0.6 % Normal 0.2-2.0 [facility] Comment on above: Performed By: #### 4 [id number] #### [facility] [address] [place] [address] Dr. Adria Amor EO # 0.3 103/ul Normal 0.0-0.7 [facility] Comment on above: Performed By: #### 4 [id number] #### [facility] [address] [place] [address] Dr. Adria Amor Eosinophils/100 WBC (Bld) 4.0 % Normal 0.9-7.0 [facility] Comment on above: Performed By: #### 4 [id number] #### [facility] [address] [place] [address] Dr. Adria Amor Erythrocyte distribution width (RBC) [Ratio] 12.2 % Normal 11.0-15.0 [facility] Comment on above: Performed By: #### 4 [id number] #### [facility] [address] [place] [address] Dr. Adria Amor Hematocrit (Bld) [Volume fraction] 39.3 % Normal 36.0-48.0 [facility] Comment on above: Performed By: #### 4 [id number] #### [facility] [address] [place] [address] Dr. Adria Amor Hemoglobin (Bld) [Mass/Vol] 13.7 g/dL Normal 12.0-16.0 [facility] Comment on above: Performed By: #### 4 [id number] #### [facility] [address] [place] [address] Dr. Adria Amor IG # 0.01 10e3/ul Normal 0.00-0.03 [facility] Comment on above: Performed By: #### 4 [id number] #### [facility] [address] [place] [address] Dr. Adria Amor IG % 0.2 % Normal 0.0-0.5 [facility] Comment on above: Performed By: #### 4 [id number] #### [facility] [address] [place] [address] Dr. Adria Amor LYMPH # 1.9 103/ul Normal 1.2-3.8 [facility] Comment on above: Performed By: #### 4 [id number] #### [facility] [address] [place] [address] Dr. Adria Amor Lymphocytes/100 WBC (Bld) 28.9 % Normal 20.5-60.0 [facility] Comment on above: Performed By: #### 4 [id number] #### [facility] [address] [place] [address] Dr. Adria Amor MANUAL DIFF REQ NO Normal [facility] Comment on above: Performed By: #### 4 [id number] #### [facility] [address] [place] [address] Dr. Adria Amor MCH (RBC) [Entitic mass] 32.4 pg Normal 26.7-34.0 [facility] Comment on above: Performed By: #### 4 [id number] #### [facility] [address] [place] [address] Dr. Adria Amor MCHC (RBC) [Mass/Vol] 34.9 g/dL Normal 29.9-35.2 [facility] Comment on above: Performed By: #### 4 [id number] #### [facility] [address] [place] [address] Dr. Adria Amor MCV (RBC) [Entitic vol] 92.9 fL Normal 81.0-99.0 [facility] Comment on above: Performed By: #### 4 [id number] #### [facility] [address] [place] [address] Dr. Adria Amor MONO # 0.5 103/ul Normal 0.3-0.8 [facility] Comment on above: Performed By: #### 4 [id number] #### [facility] [address] [place] [address] Dr. Adria Amor Monocytes/100 WBC (Bld) 7.4 % Normal 1.7-12.0 [facility] Comment on above: Performed By: #### 4 [id number] #### [facility] [address] [place] [address] Dr. Adria Amor NEUT # 3.8 103/ul Normal 1.4-6.5 [facility] Comment on above: Performed By: #### 4 [id number] #### [facility] [address] [place] [address] Dr. Adria Amor Neutrophils/100 WBC (Bld) 58.9 % Normal 43.0-75.0 [facility] Comment on above: Performed By: #### 4 [id number] #### [facility] [address] [place] [address] Dr. Adria Amor Platelet mean volume (Bld) [Entitic vol] 9.7 fL Normal 9.5-13.5 [facility] Comment on above: Performed By: #### 4 [id number] #### [facility] [address] [place] [address] Dr. Adria Amor PLT 185 103/ul Normal 150-450 [facility] Comment on above: Performed By: #### 4 [id number] #### [facility] [address] [place] [address] Dr. Adria Amor RBC 4.23 106/ul Normal 4.20-5.40 [facility] Comment on above: Performed By: #### 4 [id number] #### [facility] [address] [place] [address] Dr. Adria Amor WBC 6.5 103/ul Normal 4.0-11.0 [facility] Comment on above: Performed By: #### 4 [id number] #### [facility] [address] [place] [address] Dr. Adria Amor CYTOLOGYon 11-17-2021 SENT TO REF LAB 11/17/2021 Normal [facility] Comment on above: Performed By: #### C YTO #### [facility] [address] [place] [address] Dr. Adria Amor PREG QUANT HCGon 11-17-2021 HCG QUANT 1 mIU/mL Normal [facility] Comment on above: Performed By: #### 4 [id number] #### [facility] [address] [place] [address] Dr. Adria Amor HCG RANGE SEE BELOW Normal [facility] Comment on above: Result Comment: 5-50 0.2-1 WEEK 50-500 1-2 WEEKS 100-5,000 2-3 WEEKS 500-10,000 3-4 WEEKS 1,000-50,000 4-5 WEEKS 10,000-100,000 5-6 WEEKS 15,000-200,000 6-8 WEEKS 10,000-100,000 2-3 MONTHS Performed By: #### 4 [id number] #### [facility] [address] [place] [address] Dr. Adria Amor CBC AUTO DIFFon 11-08-2021 BASO # 0.1 103/ul Normal 0.0-0.1 [facility] Comment on above: Performed By: #### C BC #### [facility] [address] [place] [address] Dr. Adria Amor Basophils/100 WBC (Bld) 0.7 % Normal 0.2-2.0 [facility] Comment on above: Performed By: #### C BC #### [facility] [address] [place] [address] Dr. Adria Amor EO # 0.3 103/ul Normal 0.0-0.7 [facility] Comment on above: Performed By: #### C BC #### [facility] [address] [place] [address] Dr. Adria Amor Eosinophils/100 WBC (Bld) 3.4 % Normal 0.9-7.0 [facility] Comment on above: Performed By: #### C BC #### [facility] [address] [place] [address] Dr. Adria Amor Erythrocyte distribution width (RBC) [Ratio] 11.9 % Normal 11.0-15.0 [facility] Comment on above: Performed By: #### C BC #### [facility] [address] [place] [address] Dr. Adria Amor Hematocrit (Bld) [Volume fraction] 40.2 % Normal 36.0-48.0 [facility] Comment on above: Performed By: #### C BC #### [facility] [address] [place] [address] Dr. Adria Amor Hemoglobin (Bld) [Mass/Vol] 13.7 g/dL Normal 12.0-16.0 [facility] Comment on above: Performed By: #### C BC #### [facility] [address] [place] [address] Dr. Adria Amor IG # 0.02 10e3/ul Normal 0.00-0.03 [facility] Comment on above: Performed By: #### C BC #### [facility] [address] [place] [address] Dr. Adria Amor IG % 0.2 % Normal 0.0-0.5 [facility] Comment on above: Performed By: #### C BC #### [facility] [address] [place] [address] Dr. Adria Amor LYMPH # 2.9 103/ul Normal 1.2-3.8 [facility] Comment on above: Performed By: #### C BC #### [facility] [address] [place] [address] Dr. Adria Amor Lymphocytes/100 WBC (Bld) 35.1 % Normal 20.5-60.0 [facility] Comment on above: Performed By: #### C BC #### [facility] [address] [place] [address] Dr. Adria Amor MANUAL DIFF REQ NO Normal [facility] Comment on above: Performed By: #### C BC #### [facility] [address] [place] [address] Dr. Adria Amor MCH (RBC) [Entitic mass] 31.8 pg Normal 26.7-34.0 [facility] Comment on above: Performed By: #### C BC #### [facility] [address] [place] [address] Dr. Adria Amor MCHC (RBC) [Mass/Vol] 34.1 g/dL Normal 29.9-35.2 [facility] Comment on above: Performed By: #### C BC #### [facility] [address] [place] [address] Dr. Adria Amor MCV (RBC) [Entitic vol] 93.3 fL Normal 81.0-99.0 [facility] Comment on above: Performed By: #### C BC #### [facility] Laboratory [address] [place] [address] Dr. Adria Amor MONO # 0.7 103/ul Normal 0.3-0.8 [facility] Comment on above: Performed By: #### C BC #### [facility] [address] [place] [address] Dr. Adria Amor Monocytes/100 WBC (Bld) 8.2 % Normal 1.7-12.0 [facility] Comment on above: Performed By: #### C BC #### [facility] [address] [place] [address] Dr. Adria Amor NEUT # 4.3 103/ul Normal 1.4-6.5 [facility] Comment on above: Performed By: #### C BC #### [facility] [address] [place] [address] Dr. Adria Amor Neutrophils/100 WBC (Bld) 52.4 % Normal 43.0-75.0 [facility] Comment on above: Performed By: #### C BC #### [facility] [address] [place] [address] Dr. Adria Amor Platelet mean volume (Bld) [Entitic vol] 10.3 fL Normal 9.5-13.5 [facility] Comment on above: Performed By: #### C BC #### [facility] [address] [place] [address] Dr. Adria Amor PLT 256 103/ul Normal 150-450 [facility] Comment on above: Performed By: #### C BC #### [facility] [address] [place] [address] Dr. Adria Amor RBC 4.31 106/ul Normal 4.20-5.40 [facility] Comment on above: Performed By: #### C BC #### [facility] [address] [place] [address] Dr. Adria Amor WBC 8.2 103/ul Normal 4.0-11.0 [facility] Comment on above: Performed By: #### C BC #### [facility] [address] [place] [address] Dr. Adria Amor PREG QUANT HCGon 11-08-2021 HCG QUANT <1 Normal [facility] Comment on above: Performed By: #### P REGQNT #### [facility] [address] [place] [address] Dr. Adria Amor HCG RANGE SEE BELOW Normal [facility] Comment on above: Result Comment: 5-50 0.2-1 WEEK 50-500 1-2 WEEKS 100-5,000 2-3 WEEKS 500-10,000 3-4 WEEKS 1,000-50,000 4-5 WEEKS 10,000-100,000 5-6 WEEKS 15,000-200,000 6-8 WEEKS 10,000-100,000 2-3 MONTHS Performed By: #### P REGQNT #### [facility] [address] [place] [address] Dr. Adria Amor ASYMPTOMATIC COVID-19 ANTIGE Non 10-23-2021 EUA Statement SEE BELOW Normal [facility] Comment on above: Result Comment: [...] sooner. Performed By: #### C VDAGA #### [facility] [address], [place] [address] Dr. Adria Amor SARS-CoV-2 (COVID-19) RNA CHALO+probe Ql (Unsp spec) Positive Critically abnormal NEGATIVE [facility] Comment on above: Result Comment: SARS -CoV-2 antigen present; does not rule out coinfection with other pathogens. Performed By: #### C VDAGA #### [facility] [address] [place] [address] Dr. Adria Amor Cov[facility]-19 PCR [facility]02 SARS-CoV-2 (COVID-19) RNA CHALO+probe Ql (Unsp spec) Detected Critically abnormal NOT DETECTED [facility] Comment on above: Result Comment: This test is not yet approved or cleared by the [place] FDA. When there are no FDA-approved or cleared tests available, and other criteria are met, FDA can make tests available under an emergency access mechanism called an Emergency Use Authorization (EUA). The EUA for this test is supported by the Senior Net Developer of Health and Human Service's declaration that [...] used). Performed By: #### C VDTBH #### [facility] [address] [place] [address] Dr. Adria Amor ESTRADIOLon 09-22-2021 Estradiol 66.3 pg/mL Normal [facility] Comment on above: Result Comment: Adul t Female: Follicular phase 12.5 - 166.0 Ovulation phase 85.8 - 498.0 Luteal phase 43.8 - 211.0 Postmenopausal <6.0 - 54.7 1st trimester 215.0 - >4300.0 Aniya ECLIA methodology Performed By: #### E STRADI #### [facility] [address] [place] [address] Dr. Adria Amor FSHon 09-22-2021 FSH 4.0 mIU/mL Normal [facility] Comment on above: Result Comment: Adul t Female: Follicular phase 3.5 - 12.5 Ovulation phase 4.7 - 21.5 Luteal phase 1.7 - 7.7 Postmenopausal 25.8 - 134.8 Performed By: #### 4 [id number] #### [facility] [address] [place] [address] Dr. Adria Amor LUTEINIZING HORMONE (LH)on 0 09-22-2021 LH 14.1 mIU/mL Normal [facility] Comment on above: Result Comment: Adul t Female: Follicular phase 2.4 - 12.6 Ovulation phase 14.0 - 95.6 Luteal phase 1.0 - 11.4 Postmenopausal 7.7 - 58.5 Performed By: #### L BCLH #### [facility] [address] [place] [address] Dr. Adria Amor PROGESTERONEon 09-22-2021 Progesterone 5.0 ng/mL Normal [facility] Comment on above: Result Comment: Foll icular phase 0.1 - 0.9 Luteal phase 1.8 - 23.9 Ovulation phase 0.1 - 12.0 First trimester 11.0 - 44.3 Second trimester 25.4 - 83.3 Third trimester 58.7 - 214.0 Postmenopausal 0.0 - 0.1 Performed By: #### P ROGES #### [facility] [address] [place] [address] Dr. Adria Amor TSHon 09-21-2021 TSH 1.400 uIU/mL Normal 0.358-3.740 [facility] Comment on above: Performed By: #### T SH #### [facility] [address] [place] [address] Dr. Adria Amor US PELVIS AND TRANSVAGon [...] by: MARY MYLES Date: 2021-09-21 08:26 Normal [facility] Vital Signs Date Time Vital Sign Value Performing Clinician Kay henderson 11-24-2024 11:59-0400 Body mass index (BMI) [Ratio] 31.03 kg/m2 Windy YOUNGER Work Phone: [facility] 11-24-2024 11:59-0400 Body weight 82.01 kg Windy YOUNGER Work Phone: [facility] 11-24-2024 11:59-0400 Diastolic blood pressure 94 mm[Hg] Windy YOUNGER Work Phone: [facility] 11-24-2024 11:59-0400 Systolic blood pressure 152 mm[Hg] Windy YOUNGER Work Phone: [facility] Healthcare Encounters Encounter Date Encounter Type Care Provider Facility Start: 12-17-2024 ambulatory Jaycob C Link [facility] Start: 11-25-2024 ambulatory Jaycob C Link [facility] Start: 11-24-2024 End: 11-24-2024 Bamboo flowsheet Windy YOUNGER Work Phone: [facility] Start: 11-24-2024 End: 11-24-2024 Bamboo flowsheet Windy YOUNGER Work Phone: [facility] Start: 11-24-2024 End: 11-24-2024 Patient encounter procedure Windy YOUNGER Work Phone: [facility] Start: 11-24-2024 End: 11-24-2024 Periodic preventive med est patient 40-64yrs Windy YOUNGER Work Phone: [facility] Comment on above: Well woman exam with routine gynecological exam Start: 11-19-2024 End: 11-19-2024 ambulatory Jaycob C Link Facility:[facility] Start: 11-19-2024 End: 11-19-2024 Patient encounter procedure Jaycob C Link [facility] Start: 11-19-2024 End: 11-19-2024 Well adult monitoring check done Jaycob C Link [facility] Start: 10-27-2024 ambulatory Jaycob Link Facility:[facility] Start: 08-27-2023 End: 08-27-2023 ambulatory GONZALES PINTO Not Available Start: 07-30-2023 End: 07-30-2023 ambulatory GONZALES PINTO Not Available Start: 07-02-2023 End: 07-02-2023 ambulatory WINDY CRUZ Not Available Start: 06-03-2023 End: 06-03-2023 ambulatory GONZALES PINTO Not Available Start: 05-24-2022 End: 05-24-[address] GONZALES PINTO . Facility: Start: 11-17-2021 End: 11-17-2021 ambulatory NONE LISTED REQUEST Facility: Start: 11-13-2021 Encounter for preprocedural laboratory examination DR GONZALES PINTO . [facility] Start: 11-08-2021 End: 11-09-[address] GONZALES PINTO . Facility: Start: 11-08-2021 End: 11-09-2021 Encounter for preprocedural laboratory examination DR GONZALES PINTO . Facility:[facility] Start: 11-02-2021 Encounter for other preprocedural examination DR GONZALES PINTO . [facility] Start: 11-01-2021 End: 11-02-[address] NONE LISTED REQUEST Facility: Start: 11-01-2021 End: 11-02-2021 Encounter for other preprocedural examination NONE LISTED REQUEST Facility: Start: 10-23-2021 End: 10-23-[address] NONE LISTED REQUEST Facility: Start: 10-17-2021 End: 10-17-[address] NONE LISTED REQUEST Facility: Start: 09-21-2021 End: 09-22-[address] GONZALES PINTO . Facility: Procedures Date Procedure Procedure Detail Performing Clinician Start: 11-02-2022 Partial hysterectomy Ad am Link Comment on above: left ovary still in place Start: 03-04-2021 Ultrasonography guid ed transcervical radiofrequency ablation of uterine fibroid Jaycob Link Plan of Treatment Date Care Activity Detail Author Start: 11-29-2025 End: 11-29-2025 Patient encounter procedure 11/29/2025 11:00 AM EDT Procedure Visit KAYLYN ROLDAN [address] [place] [id number] Windy Cruz PA [address] [place] [address] KAYLYN ROLDAN Start: 11-24-2024 End: 01-24-2026 MG Breast - bilateral Screening Bilateral screening mammogram Imaging Routine Well woman exam with routine gynecological exam Expected: 11/24/2024 (Approximate), Expires: 01/24/2026 [facility] Work Phone: Comment on above: Expected: 11/24/2024 (Approximate), Expires: 01/24/2026 THIN PREP TIS PAP AN D HR HPV DNA THIN PREP TIS PAP AND HR HPV DNA Pathology and Cytology Routine Well woman exam with routine gynecological exam Ordered: 11/24/2024 [facility] Comment on above: Ordered: 11/24/2024 Immunizations Immunization Date Immunization Notes Care Provider Constance quintero 01-11-2015 tetanus toxoid, redu mai diphtheria toxoid, and acellular pertussis vaccine, adsorbed Jaycob Link [facility] Payers Date Payer Category Payer Private Health Insurance [id number] 2022 Blue [employer] Blue [employer] BCBS [id number] 2022 Unknown [id number] 2019 Unknown [id number] 1982 Unknown [id number]. 593 1982 Unknown [id number]. 59 1982 Unknown [id number] 2..840.1.276613.3.579.2. 593 1982 Unknown [id number] 2.840.1.290698.3.579.2. 593 1982 Unknown [id number] 2.840.1.904478.3.579.2. 593 1982 Unknown [id number] 2.16.840.1.779524.3.579.2. 593 1982 Unknown [id number] 2.16.840.1.870238.3.579.2. 593 1982 Unknown [id number] 2.16.840.1.928860.3.579.2. 9 1982 Unknown [id number] 2.16.840.1.591727.3.579.2. 1259 1982 Unknown [id number] 2.16.840.1.571088.3.579.2. 9 1982 Unknown [id number] 2.16.840.1.397811.3.579.2. 1259 1982 Unknown [id number] 2.16.840.1.939924.3.579.2. 727 1982 Unknown [id number] 2.16840.1.658225.3.579.2. 727 1982 Unknown [id number] 2.16.840.1.668791.3.579.2. 727 1959 Unknown [id number] Social History Date Type Detail Facility Start: 11-19-2024 Tobacco smoking status Never smoked tobacco (finding) [facility] Tobacco smoking status Never [facility] Sexual Orientation [facility] Start: 08-27-2023 Sex Assigned At Female [facility] Start: 04-25-2012 Sex Female (finding) [facility] Start: 08-27-2023 Tobacco smoking status NHIS Ex-smoker [facility] History of tobacco use Current smoker [facility] History of tobacco use Cigarette Smoker [facility] Start: 08-27-2023 Cigarettes smoked current (pack per day) - Reported 0.3 [facility] Start: 08-27-2023 Tobacco use and exposure Smokeless tobacco non-user [facility] Start: 08-27-2023 Alcoholic beverage intake Ex-drinker (finding) [facility] Start: 1980 Sex assigned at Female [facility] Start: 09-24-2022 Gender identity Identifies as female gender (finding) [facility] Start: 09-24-2022 Sexual orientation Heterosexual (finding) [facility] History of Present illness Narrative 11-24-2024 AREN Andrew - 11/24/2024 11:30 AM EDT Note Date & Type Note Facility 11-24-2024 History of Presen t illness Narrative Reason for Appointment: Patient ID: Michelle Butt is a 44 y.o. female who presents for Gynecologic Exam Patient presents today for Annual Exam. MEDICATIONS Current Outpatient Medications Medication Instructions sertraline (ZOLOFT) 50 mg, Daily ALLERGIES No Known Allergies PROBLEMS Active Ambulatory Problems Diagnosis Date Noted Dysmenorrhea 10/09/2022 Irregular menstruation 10/09/2022 Unspecified dyspareunia 10/09/2022 Resolved Ambulatory Problems Diagnosis Date Noted No Resolved Ambulatory Problems Past Medical History: Diagnosis Date Edema of lower extremity Elevated BP without diagnosis of hypertension Endometriosis Pelvic pain HISTORY PAST MEDICAL HISTORY SOCIAL HISTORY Past Medical History: Diagnosis Date Edema of lower extremity Elevated BP without diagnosis of hypertension Endometriosis Pelvic pain Social History Tobacco Use Smoking status: Former Current packs/day: 0.25 Average packs/day: 0.3 packs/day for 10.0 years (2.5 ttl pk-yrs) Types: Cigarettes Smokeless tobacco: Never Substance Use Topics Alcohol use: Not Currently Drug use: Never FAMILY HISTORY No family history on file. SURGICAL HISTORY Past Surgical History: Procedure Laterality Date CYSTOSCOPY 11/07/2022 ENDOMETRIAL ABLATION HYSTERECTOMY 11/2022 PAP SMEAR 05/02/2020 ROBOTIC ASSISTED HYSTERECTOMY 11/07/2022 vnotes REVIEW OF SYSTEMS Review of Systems: Review of Systems Constitutional: Negative. HENT: Negative. Eyes: Negative. Respiratory: Negative. Cardiovascular: Negative. Gastrointestinal: Negative. Genitourinary: Negative. Musculoskeletal: Negative. Skin: Negative. Neurological: Negative. All other systems reviewed and are negative. Hematological: Negative. Endocrine: Negative. Allergic/Immunologic: Negative. OBJECTIVE Objective: Physical Exam Constitutional: Appearance: Normal appearance. She is well-developed. Genitourinary: Vulva normal. Cardiovascular: Rate and Rhythm: Normal rate and regular rhythm. Pulmonary: Effort: Pulmonary effort is normal. Breath sounds: Normal breath sounds. Abdominal: General: Bowel sounds are normal. There is no distension. Palpations: Abdomen is soft. Tenderness: There is no abdominal tenderness. There is no guarding or rebound. Musculoskeletal: General: No swelling. Normal range of motion. Right lower leg: No edema. Left lower leg: No edema. Neurological: Mental Status: She is alert and oriented to person, place, and time. Skin: General: Skin is warm and dry. Psychiatric: Mood and Affect: Mood normal. Behavior: Behavior normal. Vitals and nursing note reviewed. Exam conducted with a grain spouter present. Vitals: Estimated body mass index is 31.03 kg/m as calculated from the following: Height as of 08/26/: 5' 4 . Weight as of this encounter: 180 lb 12.8 oz. BP: (!) 152/94 No LMP recorded (lmp unknown). Patient has had a hysterectomy. ASSESSMENT & PLAN ICD-10-CM 1. Well woman exam with routine gynecological exam Z01.419 Bilateral screening mammogram THIN PREP TIS PAP AND HR HPV DNA Bilateral screening mammogram Orders Placed This Encounter Procedures Bilateral screening mammogram Annual Wellness Exam: Patient presents today for routine annual exam. Patient states she has no current complaints. Patients vitals were reviewed and within normal limits. Growth and development is noted to be appropriate for age. Menstrual history is noted to be regular with no concerns reported. No mental health concerns was expressed. Pap Smear: Speculum was inserted into the vagina and pap was obtained without difficulty. No HPV testing was performed per age guideline. Patient was advised that pap results could take anywhere from 7 to 10 days to receive and our office will reach out to the patient with those once we have them. Patient can also view results via [employer]. I reinforced importance of condom use for STI prevention. Patient declined cultures to be performed with today's visit. Breast Exam: Upon examination, clinical breast exam was noted to be normal. Patient was counseled on breast self-awareness, including the importance of knowing what is normal for her own breasts and promptly reporting any changes such as new lumps, skin dimpling, nipple discharge, or pain. Screening mammogram recommended annually beginning at age 40 or earlier if risk factors are present. Discussed signs and symptoms of breast cancer and when to seek medical attention. Answered all patient questions. Contraceptive Counseling (if applicable): Patient is currently using no control at this time as a form of contraceptive. Patient does not desire control at this time. Follow Up: Patient is to return to our office in one year for annual exam unless needed otherwise. Documented by AREN Andrew on behalf of: AREN Andrew documented in this encounter [facility] Hospital Discharge instructions 10-27-2024 Note Date & Type Note Facility 10-27-2024 Hospital Discharg e instructions Follow Up Care 10/27/2024 14:54:18 With:Jaycob Weber DO, FAM Address: [address] [address]- When:1 year Comments:1 YEAR - ANNUAL PHYSICAL With:Jaycob Weber DO, FAM Address: [address] [place] [address]- When:4 weeks Comments:4 WEEKS FOLLOWUP [facility] Clinical Note 11-17-2021 Note Date & Type Note Facility 11-17-2021 Note OPERATIVE NOTE OPERATION DATE: 11/17/2021 PROCEDURE: Marva endometrial ablation, D AND C hysteroscopy, diagnostic laparoscopy, bilateral salpingectomy, right oophorectomy, fulguration of endometrial implants, lysis of adhesions. PREOPERATIVE DIAGNOSIS: Pelvis pain, menorrhagia. POSTOPERATIVE DIAGNOSIS: Pelvis pain, menorrhagia. ANESTHESIA: General. SURGEON: Gonzales Pinto D.O. MICROFILM CLERK: ALBERTA Bryan URINE OUTPUT: Yellow and clear. [...] and needle counts were correct x2. [facility] Evaluation + Plan note Laboratory Note Date & Type Note Facility Evaluation + Plan note Future Appointments Appointment Date:11/25/2024 08:00:00 AM Scheduled Provider: Location:[facility] Appointment Type: Nurse Visit Appointment Date:12/17/2024 04:00:00 PM Scheduled Provider:Jaycob Weber DO Location:[facility] Appointment Type: Open Future Scheduled TestsTSH With T4fr Reflex 11/19/24CBC w/ Auto Diff 11/19/24Comprehensive Metabolic Panel 11/19/24Lipid Panel 11/19/24 [facility] Evaluation note Note Date & Type Note Facility Evaluation note Diagnosis Well woman exam with routine gynecological exam Routine gynecological examination documented in this encounter [facility] Hospital course Narrative Note Date & Type Note Facility Hospital course Narrative No data available for this section [facility] Progress note Note Date & Type Note Facility Progress note No data available for this section [facility] Summary Purpose Family History No Family History Records FoundNo Family History Records Found No data available for this section No Family History Records Found Advance Directives No Advanced Directives Records FoundNo Advanced Directives Records FoundNo Advanced Directives Records Found Additional Source Comments INFORMATION SOURCE (unrecogn ized section and content) DATE CREATED AUTHOR 06/09/2022 [facility] DATE CREATED AUTHOR AUTHOR'S ORGANIZ ATION 08/28/2023 [facility] EPIC DATE CREATED AUTHOR AUTHOR'S ORGANIZ ATION 11/23/[address] [facility] Patient Care team informatio n (unrecognized section and content) [facility] Relationship Specialty Start Date End Date Lorena Gardner MD PCP - General Family Medicine 10/15/22 [facility] Relationship Specialty Start Date End Date Lorena Gardner MD PCP - General Family Medicine 10/15/22 Reason for Visit (unrecogniz ed section and content) Reason Comments Gynecologic Exam FOR RECORDS PERTAINING TO PATIENTS WHO ARE [...] BE BASED ON THE PRIMARY CLINICAL RECORDS. [employer] [facility]. provides no warranty or guarantee of the accuracy or completeness of information in this document.
[2024-12-02 07:11] LABS: Age Gdln ACOG Testing Note (.); HPV Genotype 18,45 Negative (Negative); IGP, Aptima HPV, rfx 16/18,45 Note (.)
== END 2024-11-24 19:45 | disposition home or self-care (01) ==
LOC: LAB 19:44
PROVIDERS: PCP Family Medicine; Visit Provider Physician Assistant
DX: Z01.419 Encounter for gynecological examination (general) (routine) without abnormal findings (principal)
CPT/HCPCS: 87624; 88175